=== PATIENT | female | born 1950 | race Caucasian/White ===

== ENCOUNTER 2024-01-29 11:08 | Inpatient (IN) | payer MEDICARE, OTHER, SELFPAY ==
[2024-01-29] VITALS (12 sets, daily range): BP systolic 80–160; BP diastolic 45–82; BMI 36.8
[2024-01-29] MEDS: LOW STRENGTH ASPIRIN 81 MG PO (08:20)
[2024-01-29] MEDS: NSS 291 ML IV (08:21)
[2024-01-29 09:54] LABS: ACT-LR - POC 368 Seconds (116-155)
[2024-01-29 10:25] LABS: ACT-LR - POC 284 Seconds (116-155)
[2024-01-29 10:49] LABS: INR 1.98; PT 22.3 Sec (11.4-14.6)
[2024-01-29 11:06] LABS: Troponin I < 0.012 ng/ml
[2024-01-29 11:07] LABS: APTT > 200 Sec (23.4-35.0)
[2024-01-29 11:09] LABS: ALT (SGPT) 12 U/L (0-35); AST (SGOT) 23 U/L (14-36); Albumin 2.7 g/dl (3.5-5.0); Alkaline Phosphatase 45 U/L (38-126); Blood Urea Nitrogen 14 mg/dl (7-17); Calcium 7.7 mg/dl (8.4-10.2); Carbon Dioxide 14 mmol/L (22-30); Chloride 89 mmol/L (98-107); Estimated Creatinine Clearance 93 ml/min; Glucose 102 mg/dl (70-99); Potassium 3.7 mmol/L (3.5-5.1); Sodium 119 mmol/L (135-145); Total Bilirubin 0.8 mg/dl (0.2-1.3); Total Protein 5.2 g/dl (6.3-8.2); eGFR > 60.00
[2024-01-29 11:10] LABS: ACT+ - POC 129 Seconds (82-134)
[2024-01-29 11:13] LABS: B.E. - POC -3.9 mmol/L; Glucose - POC 130 mg/dl (65-99); HCO3 - POC 23 mmol/L (21-29); Hematocrit - POC 36 % PCV (37-47); Hemodilution- POC Yes; Hemoglobin Calculated - POC 12.3; Ionized Calcium - POC 1.19 mmol/L (1.12-1.27); O2 Saturation %Calculated-POC 99.9 5 (92-96); PCO2 - POC 49 mmHg (35-45); PO2 - POC 343 mmHg (80-100); Potassium - POC 4.1 mmol/L (3.6-5.0); Sodium - POC 139 mmol/L (135-145); pH - POC 7.28 (7.35-7.45)
[2024-01-29 11:27] LABS: Urine Albumin Trace (Neg - Trace); Urine Bilirubin Negative (Negative); Urine Character Clear (Clear); Urine Color Yellow; Urine Glucose Negative (Negative); Urine Ketone Negative (Negative); Urine Leukocyte Trace (Negative); Urine Nitrite Negative (Negative); Urine Occult Blood Negative (Negative); Urine Specific Gravity 1.015 (<1.030); Urine Urobilinogen Negative (Neg - 1+)
[2024-01-29 11:38] LABS: Urine Red Blood Cell 0-2 /HPF (0-2); Urine Squamous Cell 0-2 /LPF (Few); Urine White Cell 0-2 /HPF (0-5)
--- NOTE | 2024-01-29 13:27 | CONSULT.CT ---
Consultation
-
Date/Time Consultation Requested: 01/28
Date/Time Consultation Performed: 01/28
Requesting Provider: Dr. Cook
Performing Provider: Myrna Khalil for Dr. Kamari Carroll
Reason for Consultation: iatrogenic left main dissection
Patient History
Physicians
Family Physician: Glen Rodriguez
Outpatient Vehicle Glass Technician: Dr. Cervantes
Inpatient Vehicle Glass Technician: Dr. Cook
History of Present Illness
83-year-old female presented for PCI of LAD. Called to Accounting Systems Manager for urgent CT surgery evaluation of left main dissection during PCI attempt. Patient with 5 out of 10 chest pain. Intra-aortic balloon pump placed via right femoral artery
by cardiology. Patient received Plavix 75 mg this morning. Past medical history gathered from prior records. Unable to obtain review of systems due to urgency of operation.
Past Medical History
Past Medical History: Other
Paroxysmal atrial fibrillation ([id number] score 3) status post cryoablation 10/22/2015
Hypertension
Carotid artery atherosclerosis
Asthma
Hyperlipidemia
Obesity (BMI 36.7
Hyperparathyroidism status post parathyroidectomy
Hypothyroidism
Orthopedic disorder multiple tendon repairs
Spinal stenosis
Past Surgical History
Past Surgical History: Other
Parathyroidectomy
Multiple tendon repairs
Spinal fusion hysterectomy
Family History
Mother: at Age
Father: at Age
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
Social History
Living: With Spouse
Employment: Retired
Allergies
Allergy/AdvReac Type Severity Reaction Status Date / Time
adhesive Allergy Rash Verified 01/29/24 08:06
chlorhexidine Allergy Hives Verified 01/29/24 08:06
levofloxacin Allergy affects Verified 01/29/24 08:06
tendons
pravastatin Allergy Unknown Verified 01/29/24 07:54
Home Medications
�Medication �Instructions �Recorded �Confirmed �Type
Bifidobacterium infantis 4 mg 4 mg PO DAILY stomach 01/29/24 01/29/24 History
capsule (Align)
Cbd 50 ml PO HS Sleep 01/29/24 History
alendronate 70 mg tablet (Fosamax) 70 mg PO QWEEK bones 01/29/24 01/29/24 History
amlodipine 2.5 mg tablet 2.5 mg PO BID Blood Pressure 01/29/24 01/29/24 History
aspirin 81 mg tablet,delayed 81 mg PO DAILY blood thinner 01/29/24 01/29/24 History
release
biotin 10,000 mcg chewable tablet 10,000 mcg PO DAILY Supplement 01/29/24 01/29/24 History
(Hair, Skin and Nails (biotin))
cholecalciferol (vitamin D3) 25 25 mcg PO DAILY Supplement 01/29/24 01/29/24 History
mcg (1,000 unit) capsule (Vitamin
D3)
clopidogrel 75 mg tablet (Plavix) 75 mg PO DAILY blood thinner 01/29/24 01/29/24 History
famotidine 40 mg tablet 40 mg PO DAILY stomach 01/29/24 01/29/24 History
levothyroxine 50 mcg capsule 50 mcg PO DAILY thyroid 01/29/24 01/29/24 History
lisinopril 10 mg tablet 10 mg PO DAILY Blood Pressure 01/29/24 01/29/24 History
magnesium 200 mg tablet 400 mg PO DAILY Supplement 01/29/24 01/29/24 History
metoprolol tartrate 25 mg tablet 25 mg PO BID blood pressure 01/29/24 01/29/24 History
psyllium husk 0.4 gram capsule 0.4 g PO HS stool 01/29/24 01/29/24 History
(Metamucil)
rosuvastatin 10 mg tablet 10 mg PO DAILY cholesterol 01/29/24 01/29/24 History
Review of Systems
-
Unable to obtain full review of systems at this time due to: Other (acute chest pain from left main dissection)
History Source: Transfer Record
Physical Exam
Vital Signs
Temp 98.0 F 01/29/24 07:51
Temp route: Temporal 01/29/24 07:51
Pulse 73 01/29/24 07:51
Resp Rate 18 01/29/24 07:51
Blood pressure 160/68 01/29/24 07:51
Position: Lying 01/29/24 07:51
SaO2 96 01/29/24 07:51
Oxygen Mode of Delivery Room air 01/29/24 07:51
Can the patient verbally communicate their pain? Yes 01/29/24 07:51
Actual Weight 97.1 kg 01/29/24 07:52
Body Mass Index (BMI) 36.8 01/29/24 07:52
Labs
01/29/24 10:10
PT 22.3 Sec (11.4-14.6) H 01/29/24 10:10
APTT > 200 Sec (23.4-35.0) H* 01/29/24 10:10
Troponin I < 0.012 ng/ml 01/29/24 10:10
Urinalysis
Urine Color Yellow 01/29/24 11:13
Urine Clarity Clear (Clear) 01/29/24 11:13
Urine pH 6.0 (5.0-9.0) 01/29/24 11:13
Ur Specific Concrete 1.015 (<1.030) 01/29/24 11:13
Urine Ketones Negative (Negative) 01/29/24 11:13
Ur Occult Blood Reflex Negative (Negative) 01/29/24 11:13
Urine Bilirubin Negative (Negative) 01/29/24 11:13
Leukocyte Esterase Rfl Trace (Negative) A 01/29/24 11:13
Urine RBC 0-2 /HPF (0-2) 01/29/24 11:13
Urine WBC (Reflex) 0-2 /HPF (0-5) 01/29/24 11:13
Ur Squamous Epith Cells 0-2 /LPF (Few) 01/29/24 11:13
Urine Glucose Negative (Negative) 01/29/24 11:13
Urine Albumin (Reflex) Trace (Neg - Trace) 01/29/24 11:13
Exam
General: Well Developed, Well Nourished and Pain (+5/10 chest pain)
HEENT: Normocephalic and Anicteric
Neck: Trachea Midline
Cardiac: S1/S2
GI: Soft
Rectal: Deferred by Provider
Neuro: AO x 3
Assessment / Plan
-
73-year-old female with iatrogenic left main dissection during LAD PCI attempt
-Dr. Kamari Carroll called stat to Accounting Systems Manager and notified of Plavix dose 75 mg this morning
- Stat type and screen sent
- Femoral balloon pump placed by cardiology
- Patient taken emergently to the OR for CABG
Data Reviewed
-
Accounting Systems Manager: Discussed with Physician
Labs: Labs Reviewed by me and Discussed with Physician
--- NOTE | 2024-01-29 13:30 | ITS.CL.ANGIO ---
Acting Manager - Angioplasty
Angioplasty
Procedure Report:
LEFT HEART CATHETERIZATION
Date of Procedure: [01/29/2024]
Procedures performed:
1: Coronary angiography
2: PTCA to the LAD
3: Intra-aortic balloon pump placement.
Primary Care Physician: Unknown
Primary Green Building Architect: Dr. Cervantes
INDICATION: Worsening angina
Informed consent was obtained in the holding area. Patient was informed about the high risk nature of the procedure and the reason to have it done a [facility]. Patient was explained the risks and the benefits of the procedure. After
hearing the risks and benefits, the patient agreed to proceed.
ACCESS: The patient was prepped and draped in usual sterile fashion. A 6 Trinidadian sheath was placed in the right right radial artery using the Seldinger over the wire technique. 10,000 units of heparin was administered for anticoagulation.
HEMODYNAMIC FINDINGS (mmHg):
Ao(s/d,m): 130/67 with a mean of 100
Percutaneous Coronary Intervention (PCI): This was a planned percutaneous core intervention. EBU 3.5 guiding catheter was used to cannulate left main coronary artery. Success of 90% lesions in the LAD were then visualized. Heavy calcification was
present.
Were able to cross the lesion with a Runthrough wire. We had a great deal of difficulty of advancing equipment to predilate the lesion. First, we attempted 2.0 x 12 compliant balloon which did not cross. We then inserted a 1.5 x 10 mm Euphora
noncompliant balloon. The balloon did not cross the lesion either. We then took a 6 Trinidadian guide liner catheter to attempt to deliver balloon further. Were able to deliver balloon to the mid LAD to dilate the distal lesion. Unfortunately, the
balloon ruptured at 8 gerson inflation. We then to attempt to deliver a new 1.5 x 10 mm NC Euphora balloon, successfully delivered to the mid distal LAD, inflated, however, a rupture occurred at 8 gerson again. We attempted to deliver a 2.0 x 12 mm
compliant balloon, however we were not able to successfully cross.
We then exchanged a 6 Trinidadian guide liner catheter for a 5 Trinidadian guide liner catheter in order to try to deliver the equipment further down the vessel with more support. Unfortunately, we could not advance any equipment through the 5 Trinidadian guide
liner catheter.
The 5 Trinidadian guide catheter was then taken out and replaced by a 6 Trinidadian guide liner catheter. Several attempts were made to deliver equipment further down the LAD.
The patient remained hemodynamically stable. However, angiography demonstrated a dissection in the LAD. Unfortunately the dissection not allergy propagated to the left main coronary artery. Some staining was noted in the left main coronary artery
as well as aortic root.
At this point, the patient developed 5 out of 10 chest discomfort. Decision was made not to pursue intervention any further, and involve the help of CT surgery team.
Using a 4 Trinidadian micropuncture kit, right common femoral access was obtained. 8 Trinidadian balloon pump sheath was placed. Inserted balloon pump was placed for hemodynamic support in preparation of the patient going to the operating room.
After the balloon pump was sutured in place, the patient was successfully taken to the operating room.
FINAL RESULT: Unsuccessful PTCA/PCI of the LAD.
Fluoroscopy Time (min): 56 minutes
Radiation Dose (mGy): [1402 mGy]
DAP (Gy.cm2): 71.387
Closure device: None. A TR band was applied for hemostasis at the right wrist.
Complications: Coronary dissection
ASSESSMENT:
1: Unsuccessful PTCA/PCI of the LAD due to severe calcifications. Complicated by left anterior descending artery dissection extending into the left main coronary artery.
2: Emergent insertion of enteric balloon pump for hemodynamic support
3: Emergent transfer of the patient to the operating room.
--- NOTE | 2024-01-29 14:11 | W.PN.UPDATE ---
Update Note
Progress Note Update
Patient went emergently to the operating room after left anterior descending artery dissection propagated into the left main at the aortic root.
The primary adjuster electrical contacts for the patient is son, Lex, he is the POA. Phone number is [phone].
Patient's family was updated with the patient's condition and the need for a long/8 to 10-hour surgery.
[2024-01-29 14:47] LABS: ACT-LR - POC > 397 Seconds (116-155)
[2024-01-29 14:47] LABS: ACT-LR - POC > 397 Seconds (116-155)
[2024-01-29 15:06] LABS: B.E. - POC -1.5 mmol/L; Glucose - POC 161 mg/dl (65-99); HCO3 - POC 24 mmol/L (21-29); Hematocrit - POC 18 % PCV (37-47); Hemodilution- POC Yes; Hemoglobin Calculated - POC 6.2; Ionized Calcium - POC 0.89 mmol/L (1.12-1.27); PCO2 - POC 40 mmHg (35-45); PO2 - POC 410 mmHg (80-100); Potassium - POC 5.1 mmol/L (3.6-5.0); Sodium - POC 137 mmol/L (135-145); pH - POC 7.38 (7.35-7.45)
--- NOTE | 2024-01-29 15:55 | OR.RPT ---
Operative Report
Operative Report
PROCEDURE DATE: 01/29/2024
Preoperative diagnosis: Severe coronary artery disease undergoing surgical revascularization, severe bleeding around right femoral intra-aortic balloon pump site.
Postoperative diagnosis: Same
Procedure:
1. Emergent left common femoral artery cannulation (duplex assisted, using micropuncture kit) and placement of intra-aortic balloon pump sheath.
2. Emergent right groin cutdown with common femoral artery proximal and distal control, and subsequent removal of intra-aortic balloon pump sheath and primary repair of common femoral artery.
Surgeon: Dorian
Bread Baker: Kamari Carroll MD, Stephani Lyn NP required for all aspects of procedure.
Complications: None
Anesthesia: General
Indications for procedure:
I was emergently contacted by the cardiac surgeon as the patient was brought to the cardiac operating room for emergent CABG. Right femoral intra-aortic balloon pump site with significant bleeding around the sheath. Manual pressure was being
applied continuously. I emergently came to the operating room to assist.
Description of procedure:
Patient was prepped and draped by the cardiac surgery team. The right groin manual pressure was continuously applied using sterile technique. At this point under direct duplex ultrasound guidance I cannulated the left common femoral artery using a
micropuncture kit. I then exchanged over a 0.035 inch wire for the introducer sheath for the intra-aortic balloon pump. (The balloon pump was to be replaced in the left side so that the right side could be removed and the artery could be
repaired). The dilator/introducer and wire were removed.
At this point I then turned my attention to the right groin. Again maintaining manual pressure in the right groin to control the bleeding, longitudinal incision was made in the right groin just proximal and distal to the sheath entry site. This
was carried down through the subcutaneous tissue with the electrocautery device. A self-retaining retractor was then placed. There was moderate bleeding around the sheath entry site which made this difficult. I was able to then identify the
inguinal ligament and dissect just below the inguinal ligament. The patient's habitus because the inguinal ligament/abdominal wall tissue to hang slightly over the inguinal ligament. The sheath therefore appeared to dive down underneath the
inguinal ligament into the artery. At this point, I was able to get down to the level of the artery and palpate the pulsation with my hand. I therefore then maintained manual pressure with my finger on the artery at the site of sheath entry and
then placed a Robby retractor underneath the inguinal ligament. I ligated/clipped and divided a couple branches medially and laterally on the artery to allow circumferential dissection underneath the inguinal ligament of the distal external iliac
artery. As such I was able to pass a vessel loop which I then double looped and tightened. This slowed the bleeding somewhat. I then dissected just distal to the sheath entry site on the common femoral artery. This was high in the groin and
therefore I continued to dissect along the common femoral artery. This was proximal to the bifurcation. I was able to then circumferentially dissected here and gain distal control. I placed a angled Deanna clamp on the distal common femoral
artery. Now I had proximal and distal control.
At this point, we gave the patient 5000 units of intravenous heparin since we had clamped the artery proximally distally. The cardiac surgeon and cardiac team placed the new intra-aortic balloon pump through the sheath I placed in the left groin
(see operative note for details). Once they had removed the prior balloon pump in place the new pump via the left femoral access, I could then turned my attention to remove the sheath in the right common femoral artery. I therefore then slightly
loosened my proximal vessel loop and removed the sheath. I then tightened my double looped Vesseloops initially and then exchanged for a Derra clamp proximally. I flushed the artery forward and backward. I inspected the sheath entry site and
there was a small ovoid opening. I was able to inspect the edges proximally distally and the looked reasonable. Therefore I then used two 6-0 Prolene [id number] type sutures to primarily repair the artery. I then released flow in the [place]
arteries by releasing my proximal distal clamps. There was good pulsatile flow proximal and distal to the arterial repair. Doppler confirmed good Doppler signal as well. At this point is very satisfied. Hemostasis was noted along the suture
line. I then irrigated. Any small bleeding subcutaneous or other vein or artery branches were clipped. I then irrigated. I confirmed full hemostasis. I then closed in layers using 2-0 Vicryl interrupted suture followed by 3-0 Vicryl interrupted
deep dermal suture followed by skin clips. Dressings were applied. The patient tolerated this portion of the procedure well. Dr. Carroll and his team will dictate the entirety of the cardiac surgery remainder of the case. Please see operative
note for details.
[2024-01-29 15:56] LABS: B.E. - POC -1.1 mmol/L; Glucose - POC 174 mg/dl (65-99); HCO3 - POC 25 mmol/L (21-29); Hematocrit - POC 23 % PCV (37-47); Hemodilution- POC Yes; Hemoglobin Calculated - POC 7.7; Ionized Calcium - POC 0.86 mmol/L (1.12-1.27); O2 Saturation %Calculated-POC 99.9 5 (92-96); PCO2 - POC 48 mmHg (35-45); PO2 - POC 348 mmHg (80-100); Potassium - POC 5.3 mmol/L (3.6-5.0); Sodium - POC 141 mmol/L (135-145); pH - POC 7.33 (7.35-7.45)
[2024-01-29 16:21] LABS: B.E. - POC -0.8 mmol/L; Glucose - POC 177 mg/dl (65-99); HCO3 - POC 25 mmol/L (21-29); Hematocrit - POC 25 % PCV (37-47); Hemodilution- POC Yes; Hemoglobin Calculated - POC 8.4; O2 Saturation %Calculated-POC 99.6 5 (92-96); PCO2 - POC 49 mmHg (35-45); PO2 - POC 203 mmHg (80-100); Potassium - POC 4.4 mmol/L (3.6-5.0); Sodium - POC 141 mmol/L (135-145); pH - POC 7.32 (7.35-7.45)
[2024-01-29 16:55] LABS: Glucose - POC 167 mg/dl (65-99); HCO3 - POC 22 mmol/L (21-29); Hematocrit - POC 24 % PCV (37-47); Hemodilution- POC Yes; Hemoglobin Calculated - POC 8.2; Ionized Calcium - POC 0.87 mmol/L (1.12-1.27); O2 Saturation %Calculated-POC 98.5 5 (92-96); PCO2 - POC 49 mmHg (35-45); PO2 - POC 133 mmHg (80-100); Potassium - POC 3.3 mmol/L (3.6-5.0); Sodium - POC 142 mmol/L (135-145); pH - POC 7.26 (7.35-7.45)
[2024-01-29 17:08] LABS: B.E. - POC 0.6 mmol/L; Glucose - POC 152 mg/dl (65-99); HCO3 - POC 27 mmol/L (21-29); Hematocrit - POC 23 % PCV (37-47); Hemodilution- POC Yes; Hemoglobin Calculated - POC 7.8; Ionized Calcium - POC 0.85 mmol/L (1.12-1.27); O2 Saturation %Calculated-POC 99.8 5 (92-96); PCO2 - POC 48 mmHg (35-45); PO2 - POC 244 mmHg (80-100); Potassium - POC 3.1 mmol/L (3.6-5.0); Sodium - POC 144 mmol/L (135-145); pH - POC 7.35 (7.35-7.45)
[2024-01-29 17:50] LABS: Glucose - POC 126 mg/dl (65-99); HCO3 - POC 32 mmol/L (21-29); Hematocrit - POC 19 % PCV (37-47); Hemodilution- POC Yes; Hemoglobin Calculated - POC 6.4; Ionized Calcium - POC 0.69 mmol/L (1.12-1.27); PCO2 - POC 23 mmHg (35-45); PO2 - POC 323 mmHg (80-100); Potassium - POC 3.8 mmol/L (3.6-5.0); Sodium - POC 149 mmol/L (135-145); pH - POC 7.75 (7.35-7.45)
[2024-01-29 17:55] LABS: B.E. - POC 0.7 mmol/L; Glucose - POC 154 mg/dl (65-99); HCO3 - POC 27 mmol/L (21-29); Hematocrit - POC 21 % PCV (37-47); Hemodilution- POC Yes; Hemoglobin Calculated - POC 7.1; Ionized Calcium - POC 0.85 mmol/L (1.12-1.27); O2 Saturation %Calculated-POC 99.9 5 (92-96); PCO2 - POC 54 mmHg (35-45); PO2 - POC 277 mmHg (80-100); Potassium - POC 2.9 mmol/L (3.6-5.0); Sodium - POC 146 mmol/L (135-145); pH - POC 7.31 (7.35-7.45)
[2024-01-29 18:26] LABS: B.E. - POC -1.5 mmol/L; Glucose - POC 178 mg/dl (65-99); HCO3 - POC 24 mmol/L (21-29); Hematocrit - POC 26 % PCV (37-47); Hemodilution- POC Yes; Ionized Calcium - POC 0.79 mmol/L (1.12-1.27); O2 Saturation %Calculated-POC 99.9 5 (92-96); PCO2 - POC 40 mmHg (35-45); PO2 - POC 263 mmHg (80-100); Potassium - POC 3.7 mmol/L (3.6-5.0); Sodium - POC 146 mmol/L (135-145); pH - POC 7.38 (7.35-7.45)
[2024-01-29 18:55] LABS: Glucose - POC 166 mg/dl (65-99); HCO3 - POC 25 mmol/L (21-29); Hematocrit - POC 25 % PCV (37-47); Hemodilution- POC Yes; Hemoglobin Calculated - POC 8.7; Ionized Calcium - POC 0.75 mmol/L (1.12-1.27); O2 Saturation %Calculated-POC 99.5 5 (92-96); PCO2 - POC 34 mmHg (35-45); PO2 - POC 156 mmHg (80-100); Potassium - POC 3.2 mmol/L (3.6-5.0); Sodium - POC 146 mmol/L (135-145); pH - POC 7.47 (7.35-7.45)
[2024-01-29 19:37] LABS: B.E. - POC -0.6 mmol/L; Glucose - POC 198 mg/dl (65-99); HCO3 - POC 25 mmol/L (21-29); Hematocrit - POC 24 % PCV (37-47); Hemodilution- POC Yes; Hemoglobin Calculated - POC 8.3; Ionized Calcium - POC 0.77 mmol/L (1.12-1.27); O2 Saturation %Calculated-POC 99.9 5 (92-96); PCO2 - POC 43 mmHg (35-45); PO2 - POC 261 mmHg (80-100); Potassium - POC 3.3 mmol/L (3.6-5.0); Sodium - POC 148 mmol/L (135-145); pH - POC 7.37 (7.35-7.45)
[2024-01-29 19:50] LABS: ACT+ - POC 567 Seconds (82-134)
[2024-01-29 20:08] LABS: B.E. - POC -1.4 mmol/L; Glucose - POC 188 mg/dl (65-99); HCO3 - POC 23 mmol/L (21-29); Hematocrit - POC 29 % PCV (37-47); Hemodilution- POC Yes; Hemoglobin Calculated - POC 9.8; Ionized Calcium - POC 0.78 mmol/L (1.12-1.27); O2 Saturation %Calculated-POC 99.9 5 (92-96); PCO2 - POC 39 mmHg (35-45); PO2 - POC 282 mmHg (80-100); Potassium - POC 3.1 mmol/L (3.6-5.0); Sodium - POC 148 mmol/L (135-145); pH - POC 7.39 (7.35-7.45)
[2024-01-29 20:29] LABS: ACT+ - POC 112 Seconds (82-134)
[2024-01-29 20:30] LABS: B.E. - POC -5.2 mmol/L; Glucose - POC 206 mg/dl (65-99); HCO3 - POC 21 mmol/L (21-29); Hematocrit - POC 24 % PCV (37-47); Hemodilution- POC Yes; Hemoglobin Calculated - POC 8.3; Ionized Calcium - POC 0.76 mmol/L (1.12-1.27); O2 Saturation %Calculated-POC 99.8 5 (92-96); PCO2 - POC 40 mmHg (35-45); PO2 - POC 229 mmHg (80-100); Potassium - POC 3.4 mmol/L (3.6-5.0); Sodium - POC 148 mmol/L (135-145); pH - POC 7.32 (7.35-7.45)
[2024-01-29 21:06] LABS: ACT+ - POC 891 Seconds (82-134)
[2024-01-29 21:07] LABS: B.E. - POC -6.9 mmol/L; Glucose - POC 234 mg/dl (65-99); HCO3 - POC 20 mmol/L (21-29); Hematocrit - POC 21 % PCV (37-47); Hemodilution- POC Yes; Hemoglobin Calculated - POC 7.3; Ionized Calcium - POC 1.01 mmol/L (1.12-1.27); PCO2 - POC 44 mmHg (35-45); PO2 - POC 464 mmHg (80-100); Potassium - POC 4.2 mmol/L (3.6-5.0); Sodium - POC 145 mmol/L (135-145); pH - POC 7.26 (7.35-7.45)
[2024-01-29 21:29] LABS: B.E. - POC 8.4 mmol/L; Glucose - POC 209 mg/dl (65-99); HCO3 - POC 32 mmol/L (21-29); Hematocrit - POC 20 % PCV (37-47); Hemodilution- POC Yes; Ionized Calcium - POC 0.93 mmol/L (1.12-1.27); O2 Saturation %Calculated-POC 99.9 5 (92-96); PCO2 - POC 39 mmHg (35-45); PO2 - POC 304 mmHg (80-100); Potassium - POC 3.7 mmol/L (3.6-5.0); Sodium - POC 154 mmol/L (135-145); pH - POC 7.52 (7.35-7.45)
[2024-01-29 21:50] LABS: ACT+ - POC 134 Seconds (82-134)
[2024-01-29 21:54] LABS: B.E. - POC 1.4 mmol/L; Glucose - POC 235 mg/dl (65-99); HCO3 - POC 26 mmol/L (21-29); Hematocrit - POC 24 % PCV (37-47); Hemodilution- POC Yes; Hemoglobin Calculated - POC 8.3; Ionized Calcium - POC 0.93 mmol/L (1.12-1.27); O2 Saturation %Calculated-POC 99.1 5 (92-96); PCO2 - POC 38 mmHg (35-45); PO2 - POC 134 mmHg (80-100); Potassium - POC 3.7 mmol/L (3.6-5.0); Sodium - POC 153 mmol/L (135-145); pH - POC 7.44 (7.35-7.45)
[2024-01-29] MEDS: ADRENALIN 250 IV (23:15)
[2024-01-29] MEDS: PITRESSIN 100 IV (23:15)
[2024-01-29 23:28] LABS: Glucose - Point of Care 246 mg/dl (70-99)
[2024-01-29] MEDS: CALCIUM CHLORIDE 10% SYRINGE 500 MG IV (23:30)
[2024-01-29 23:33] LABS: B.E. -1.1 mmol/L; HCO3 24.3 mmol/L (21-28); Ionized Calcium 1.24 mMOL/L (1.15-1.33); O2 Saturation % 99.4 % (94-98); PCO2 43 mmHg (32-35); PO2 173 mmHg (83-108); Potassium 3.3 mMOL/L (3.5-5.1); Sodium 149 mMOL/L (136-145); pH 7.36 (7.35-7.45)
[2024-01-29 23:37] LABS: Hematocrit 21.1 % (37.0-47.0); Hemoglobin 7.6 g/dL (12.0-16.0); Mean Corpuscular Hgb 31.8 pg (27.0-31.0); Mean Corpuscular Volume 88.3 fL (81.0-99.0); Mean Platelet Volume 9.3 fL (7.4-10.4); Platelet Count 141 10^3/uL (130-400); Red Blood Cell Count 2.39 10^6/uL (4.20-5.40); Red Cell Dist. Width 14.5 % (11.5-14.5); White Blood Cell Count 16.1 10^3/uL (4.8-10.8)
[2024-01-29 23:39] LABS: O2 Therapy VENT
--- NOTE | 2024-01-29 23:42 | W.IMMPOSTOP ---
Addendum entered and electronically signed by Kamari Carroll MD 01/30/24 00:56:
[id number]
Original Note:
Surgical Immed Post Op Note
-
CARDIAC SURGERY OPERATIVE NOTE:
Preoperative Dx:
CAD w/ LM dissection
Bleeding from L GLASS SCIENCE ENGINEER sheath/IABP
Postoperative Dx:
ATAAD involving the LM/RM/aortic root and extending to proximal aortic arch
Coagulopathy
Open-chest
Procedures:
SUMMARY: Emergency repair of ATAAD w/ #23 Bio-bentall, ligation of LM and RM ostia, CABG x 3 (PRINCESS to LAD, GSV to OM, GSV to PDA); DHCA w/ ACP, Open chest for ongoing coagulopathy
1) Access of L GLASS SCIENCE ENGINEER w/ tactile and U/S guidance, micropucture technique, IABP sheath placement
2) Cutdown & open repair of R GLASS SCIENCE ENGINEER
3) Placement of IABP via L GLASS SCIENCE ENGINEER access
4) Median sternotomy
5) Takedown of PRINCESS (narrow pedicle) - brisk blood flow
6) Endoscopic LLE GSV harvest
7) Cannulation of TRUE lumen of distal ascending aorta/arch w/ Seldinger technique & EUSEBIA guidance, RA cannulation, Retrograde cannulation, Placement of LV vent via R superior pulmonary vein
8) Cardiopulmonary bypass - cross-clamp application, retrograde cardioplegic arrest
9) CABG x 2 (GSV to OM, PRINCESS to LAD)
10) Repair of ATAAD w/ Bio-bentall w/ #23mm KONECT RESILIA valved conduit w/ oversewing of dissected LM and dissected/profoundly calcified RM coronary arteries
11) CABG x 1 (GSV to distal RCA)
12) Open distal ascending aortic/proximal arch reconstruction w/ creation of neomedia & anastomosis under DHCA and direct ACP via L CCA w/ 28mm Hemashield graft w/ 8mm sidearm
13) Re-institution of systemic flow via sidearm graft cannulation
14) Vviug-po-palvf anastomosis
15) Proximal coronary anastomoses x 2
16) Placement of temporary epicardial V-pacing wires
17) Separation from CPB support
18) Serial packing & attempted correction of coagulopathy - pt w/ recurrent surgical bleeding at aortic root - numerous repair sutures placed
19) Re-heparinization, re-establishment of CPB support
20) Further aortic root repair suture placement w/ control obtained
21) Separation from CPB support
22) Serial packing & transfusions to address ongoing coagulopathy
23) Application of open chest dressing
Surgeon:
Kamari Carroll M.D.
Assistants:
Emiliano OhASuzy-CSuzy; endoscopic GSV harvest/prep of LLE GSV, pharmacy sales assistant for initiation of CPB support & CABG x 2
Carlitos RiojasCSuzy; assistant professor of biochemistry throughout
Anesthesia:
Tino Salas M.D.
Perfusion:
Tamara MarsC.P.; CPB: 361min, XC: 147min, Circulatory arrest: 24min, ACP: 20min
Findings:
Pt. w/ significant bleeding from around R GLASS SCIENCE ENGINEER IABP sheath prompting intraoperative vascular surgery consultation (please see their operative note for greater details)
Initial EUSEBIA assess w/ [id number] AI w/ flap of ATAAD visible in ascending aorta & proximal arch; descending aorta OK
PRINCESS was good quality conduit w/ ELD 2.5mm w/ very brisk blood flow
GSV was good quality conduit w/ ELD 3.5mm
LAD was visible on the epicardial surface, very dense proximal calcifications & scattered calcifications throughout, ELD at midpoint anastomosis was 2.5mm
OM was visible on the epicardial surface, very dense proximal calcifications & scattered calcifications throughout, ELD at midpoint anastomosis was 3.25mm
Distal RCA was visible on the epicardial surface, very dense proximal calcifications, distal OK, ELD at distal anastomosis just post crux 3.0mm
Extensive dissection involving entire aortic root w/ ~ 0.25 x 0.25cm tear noted ~ 3mm inside ostium of LM coronary - LM was not amendable to reimplantation/cabrol
Trileaflet AV w/ leaflet calcifications on ALL cusps (not amenable to valve-sparing techniques)
RM coronary w/ circumferential dissection and profound circumferential (~1 cm) ostial calcifications extending into wall of aorta. There appeared to be ostial RM stenosis. RM was not amenable to reimplantation/cabrol
#23 Bio-bentall secured w/ 15 interrupted, pledgetted valve sutures positioned on LVOT side of aortic annulus & secured w/ Cor-Knot device
Distal ascending aorta/arch w/ limited dissection flap along anterior/lateral margin extending to base of innominate
There was no secondary tear in the aortic arch
Ward-media reconstructed w/ felt/bioglue - open distal anastomosis performed under DHCA at 19C w/ ACP via direct L CCA ostial cannulation
Pt. initially w/ typical coagulopathy following DHCA that was improving w/ serial packing & transfusion. However, w/ ongoing pressurization, pt w/ onset of surgical bleeding at the aortic root (~7-8 o'clock). Numerous repair sutures were placed
and would result in brief temporization of bleeding. However, repeat surgical bleeding continued to recur. CPB re-established & additional surgical control obtained
Improved hemostasis but w/ continued coagulopathy prompted application of open chest dressing
Post-EUSEBIA w/ normal biventricular function. AV w/ mean gradient 7mmHg
Family notified of pathology, all operative events, and patient condition immediately following procedure
Implants:
#23 KONECT RESILIA valved conduit
#28 Hemashield graft
V-pacing wires x 2
CT x 4
Open chest dressing (2 - vaginal packs, 2 - rolls of Kerlex, syringe separation of sternal tables)
Transfusions:
10U PRBC, 4pk PLT, 8U FFP, 9mg Factor VIIa
Condition:
Continued coagulopathy - giving additional PRBC, cryo
Critical/guarded condition to CVICU
91 sinus. 96/44. 32/16. CVP 12. CO/CI: 4.54, CI: 2.26
GTTS: epi 4, vaso 0.04, levo 4, precedex 0.5
[2024-01-29] MEDS: PRECEDEX 100 IV (23:46)
[2024-01-29 23:48] LABS: APTT 49.7 Sec (23.4-35.0); Fibrinogen 165 MG/DL (199-459)
[2024-01-29] MEDS: SUBLIMAZE 100 IV (23:54)
[2024-01-29] MEDS: SUBLIMAZE 95 MCG IV (23:55)
[2024-01-29] MEDS: ADRENALIN IV (23:59)
[2024-01-30] VITALS (84 sets, daily range): BP systolic 80–135; BP diastolic 33–113; BMI 41.3
[2024-01-30] MEDS: NSS 500 IV
[2024-01-30] MEDS: PITRESSIN IV
--- NOTE | 2024-01-30 | PTCARENOTE ---
assumed care of patient @ 2315- received pt from CVOR intubated, sedated on mechanical ventilation with open chest. Pupils equal and reactive to light. NSR on monitor. BP low on arrival systolic 60s, levo titrated up as well as 1 u prbc given . BP
recovered well. PAPs 30s.10s, CVP around 10. IABP present in L groin, site looks good no bleeding. Balloon set to 1:2 max augmentation. index >2 on arrival. Doppler pedals, + radials. Per Dr. Carroll no need for chest xray. Lungs sound clear,
diminished. 8.0 ET tube 22 @lip, SIMV 16 bpm, 500 tv, 5 pSV 5 peep. 4 chest tubes present as well as suction tube in open chest to wall drainage container. Pleurals drained heavily on arrival 100 in 15 minutes with slowdown of drainage. no air leak
or crepitus noted. Belly soft, hypoactive. Martino present draining clear tea colored urine, good output. Sternum open with ioban in place CDI, L femoral IABP site CDI no hematoma, R fem cutdown site with aquacel CDI no hematoma, R wrist cath site CDI
no hematoma. R IJ cordis with swan @ 45. L radial A line, L wrist # 20 PIV. central lines zeroed, flushed, maintained. On arrival EKG completed, labs drawn and sent. martino care completed. Drips on arrival -
Levo-4
Insulin-2
Precedex-.5
Epi-4
Vaso-0.04
[2024-01-30] MEDS: KCL 50 IV ×2 (00:17→07:41)
[2024-01-30 00:20] LABS: Lactic Acid 10.8 mmol/L (0.7-2.0)
[2024-01-30 00:30] LABS: Alkaline Phosphatase 31 U/L (38-126); Blood Urea Nitrogen 13 mg/dl (7-17); Calcium 10.2 mg/dl (8.4-10.2); Carbon Dioxide 24 mmol/L (22-30); Chloride 110 mmol/L (98-107); Direct Bilirubin 0.7 mg/dl (0.0-0.4); Estimated Creatinine Clearance 93 ml/min; Glucose 204 mg/dl (70-99); Magnesium 2.3 mg/dl (1.6-2.3); Phosphorus 4.7 mg/dl (2.5-4.5); Potassium 3.3 mmol/L (3.5-5.1); Sodium 146 mmol/L (135-145); Total Bilirubin 1.7 mg/dl (0.2-1.3); Total Protein 4.7 g/dl (6.3-8.2); eGFR > 60.00
[2024-01-30 00:43] LABS: Glucose - Point of Care 228 mg/dl (70-99)
--- NOTE | 2024-01-30 01:00 | PTCARENOTE ---
40 of K given for low K, 1 cryo and 1 additional PRBC ordered and transfused w/o reaction.
[2024-01-30 01:18] LABS: ALT (SGPT) 31 U/L (0-35); AST (SGOT) 65 U/L (14-36)
[2024-01-30 02:07] LABS: Glucose - Point of Care 245 mg/dl (70-99)
[2024-01-30 02:24] LABS: B.E. -4.9 mmol/L; HCO3 20.6 mmol/L (21-28); O2 Saturation % 98.8 % (94-98); PCO2 39 mmHg (32-35); PO2 145 mmHg (83-108); pH 7.33 (7.35-7.45)
[2024-01-30 02:25] LABS: Hematocrit 29.6 % (37.0-47.0); Mean Corp Hgb Conc. 35.8 g/dL (33.0-37.0); Mean Corpuscular Hgb 30.5 pg (27.0-31.0); Mean Corpuscular Volume 85.1 fL (81.0-99.0); Mean Platelet Volume 9.6 fL (7.4-10.4); Platelet Count 125 10^3/uL (130-400); Red Blood Cell Count 3.48 10^6/uL (4.20-5.40); Red Cell Dist. Width 14.6 % (11.5-14.5); White Blood Cell Count 10.7 10^3/uL (4.8-10.8)
[2024-01-30 02:26] LABS: Hemoglobin 10.6 g/dL (12.0-16.0); O2 Therapy VENT
[2024-01-30 02:37] LABS: INR 0.94; PT 12.4 Sec (11.4-14.6)
[2024-01-30 02:38] LABS: APTT 32.4 Sec (23.4-35.0); Fibrinogen 269 MG/DL (199-459)
--- NOTE | 2024-01-30 02:46 | PTCARENOTE ---
index low 1.61 - Epi increased to 6 per CTPA leo. additional labs drawn and sent. BP stable systolic 100s map ~70 on 0.04 vaso, 2 levo.
[2024-01-30 03:11] LABS: Glucose - Point of Care 189 mg/dl (70-99)
[2024-01-30 03:17] LABS: Lactic Acid 11.3 mmol/L (0.7-2.0)
[2024-01-30] MEDS: BACTROBAN 2% OINTMENT 1 APPLIC NASAL ×3 (03:30→20:39)
[2024-01-30] MEDS: SENOKOT-S PO ×3 (03:32→19:47)
[2024-01-30] MEDS: PACERONE PO ×4 (03:32→22:37)
[2024-01-30] MEDS: TYLENOL PO ×4 (03:32→22:37)
[2024-01-30] MEDS: PRECEDEX 100 IV ×6 (03:37→20:38)
--- NOTE | 2024-01-30 04:00 | PTCARENOTE ---
Index low 1.42 - 500 albumin given per CTPA as well as dobutamine started at 3 , calcium gluc replaced, sodium bicarb orders
[2024-01-30 04:07] LABS: Glucose - Point of Care 187 mg/dl (70-99)
[2024-01-30] MEDS: ALBUMIN 5% 250 IV ×2 (04:17→04:31)
[2024-01-30] MEDS: PITRESSIN 100 IV ×2 (04:23→14:13)
[2024-01-30] MEDS: DOBUTREX 500 MG 250 IV (04:28)
[2024-01-30] MEDS: NOVOLIN R INSULIN INFUSION 100 IV ×2 (04:30→11:02)
[2024-01-30 04:36] LABS: Hematocrit 28.6 % (37.0-47.0); Hemoglobin 10.2 g/dL (12.0-16.0); Mean Corp Hgb Conc. 35.7 g/dL (33.0-37.0); Mean Corpuscular Hgb 30.2 pg (27.0-31.0); Mean Corpuscular Volume 84.6 fL (81.0-99.0); Mean Platelet Volume 9.8 fL (7.4-10.4); Platelet Count 111 10^3/uL (130-400); Red Blood Cell Count 3.38 10^6/uL (4.20-5.40); Red Cell Dist. Width 14.7 % (11.5-14.5)
[2024-01-30 04:37] LABS: Mixed Venous O2 Saturation 98.9 %
[2024-01-30] MEDS: CALCIUM GLUCONATE 100 IV (04:38)
[2024-01-30] MEDS: SODIUM BICARBONATE 100 MEQ IV (04:40)
--- NOTE | 2024-01-30 04:54 | PTCARENOTE ---
BP very labile 60s-140s, IABP augmentation alarm, pt recovered with titration of levo
[2024-01-30 05:09] LABS: Glucose - Point of Care 219 mg/dl (70-99)
[2024-01-30 05:13] LABS: Mixed Venous O2 Saturation 98.3 %
[2024-01-30 05:13] LABS: Blood Urea Nitrogen 14 mg/dl (7-17); Calcium 8.5 mg/dl (8.4-10.2); Carbon Dioxide 21 mmol/L (22-30); Chloride 112 mmol/L (98-107); Estimated Creatinine Clearance 70 ml/min; Glucose 198 mg/dl (70-99); Magnesium 2.1 mg/dl (1.6-2.3); Potassium 3.8 mmol/L (3.5-5.1); Sodium 149 mmol/L (135-145); eGFR > 60.00
[2024-01-30] MEDS: VERSED 1 MG IV ×7 (05:23→22:43)
--- NOTE | 2024-01-30 05:25 | W.PN.CT ---
Addendum entered and electronically signed by Kamari Carroll MD 01/30/24 06:03:
I saw and examined the patient.
The PA's note was reviewed and I agree with the note.
Comment:
POD#1 s/p Emergency repair of ATAAD w/ #23 Bio-bentall, ligation of LM and RM ostia, CABG x 3 (PRINCESS to LAD, GSV to OM, GSV to PDA); DHCA w/ ACP, Open chest for ongoing coagulopathy
Overnight patient did well. Coagulopathy improved w/ transfusion of 1 cryo, 2 PRBC.
N: Sedated on fentanyl & precedex. GCS 3T. PERRLA - hold on sedation vacation until after return to OR w/ chest closure (timing TBD)
CV: EPI 6, 3, LEVO OFF, VASO 0.04. 101 sinus. 120/49. 27/14. CVP 9. CO/CI: 5.04/2.51. IABP 1:2. Doppler signal in B/L LE. Open chest dressing intact. CT: ANTERIOR MED: 525, MED: 120, PLEURAL: 200 since OR (last hour: PLEURAL: 10, MEDS:
0, ANTERIOR: 50). Maintain open chest dressing today - possible return to OR for washout/closure tomorrow vs. late today
P: SIMV/16/500/60/5. 99%. 2AM: 7.33/39/145/20.6/-4.6/98. ETT care, minimal secretions reported
GI: NPO
: Creat 0.8. UO: 895 since OR (last hour: 75)
HEME: Hgb 10.2. PLT: 111 @ 4:20 AM - continue to follow - may require products
ID: Continue ABX
ENDO: Insulin gtt at 24 secondary to hyperglycemia
FEN: Ca and K repleted
PROPH: ETT care, SCDs to B/L LE, GI prophylaxis
DISPO: ICU, full code, remains in serious, abeit improving condition
Original Note:
Today's Communication / Plan
-
POD #1
- hemodynamically stable on epi 6, 3, vaso & levo on/off, iabp 1:2
- precedex/fentanyl for sedation
- GCS 3T, +PERRLA, awaiting appropriate opportunity for sedation vacation
- coagulopathy improved
- hgb 10.2, CT output Ant med 525/12hr (50ml/hr recently), med 90/12hr, pleurals 160/12hr
- Cr 0.8 , UOP 895ml/12hr
- f/u plan for chest closure
- family updated & expressed understanding. all questions were answered
Assessment / Plan
-
- s/p Emergency repair of ATAAD w/ #23 Bio-bentall, ligation of LM and RM ostia, CABG x 3 (PRINCESS to LAD, GSV to OM, GSV to PDA); DHCA w/ ACP, Open chest for ongoing coagulopathy 01/29/[address] Carroll - POD #1
-s/p R femoral IABP removal & arterial repair of common femoral artery via cutdown & L femoral IABP insertion 01/29/[address] Alarcon
- CAD s/p aborted PCI c/b LM dissection extending retrograde to Type A dissection - now s/p Bentall with hemiarch replacement, cabg x3 01/29/24
- hemorrhagic shock c/b coagulopathy
- AF s/p cryo ablation 2015
- HTN
- HLD
- obesity
- hyperparathyroidism s/p parathyroidectomy
- spinal stenosis
- osteoporosis
- multiple tendon repairs
Discussed patient care with: Care Team
Subjective
Procedure
s/p Emergency repair of ATAAD w/ #23 Bio-bentall, ligation of LM and RM ostia, CABG x 3 (PRINCESS to LAD, GSV to OM, GSV to PDA); DHCA w/ ACP, Open chest for ongoing coagulopathy on 01/29/[address] Carroll
-
Date of Service: January 30, 2024
Objective Data
-
Lab Results
01/29/24 10:10
PT 22.3 Sec (11.4-14.6) H 01/29/24 10:10
INR 1.98 01/29/24 10:10
APTT > 200 Sec (23.4-35.0) H* 01/29/24 10:10
Vital Signs
Vital Signs
Temp Pulse Resp BP Pulse Ox
98.0 F 73 18 160/68 96
01/29/24 07:51 01/29/24 07:51 01/29/24 07:51 01/29/24 07:51 01/29/24 07:51
SaO2: 96
Physical Exam
-
General: Other
Cardiovascular: Regular rate & rhythm
Respiratory: Rales
Sternum: Unstable (OPEN CHEST)
Incision: Dressing Intact
Extremities: Edema +2
Data Reviewed
-
Lab Results: Results Reviewed
Medications: Active Meds Reviewed
Chest X-Ray: Image Reviewed
Vital Signs / Labs
-
Vital Signs and Labs:
Temp Pulse Resp BP Pulse Ox
99.2 F 94 0 118/92 98
01/30/24 04:00 01/30/24 04:02 01/30/24 04:02 01/30/24 04:00 01/30/24 04:02
01/29/24 01/29/24 01/29/24
08:52 09:24 09:48
WBC
RBC
Hgb
Hct
MCH
RDW
Plt Count
PT
APTT
Fibrinogen
pH
pCO2
pO2
HCO3
ABG O2 Sat (Measured)
POC ABG O2 Sat (Calc)
Potassium
Sodium
Chloride
Carbon Dioxide
Creatinine
Glucose
Lactic Acid
Calcium
Phosphorus
Total Bilirubin
Direct Bilirubin
AST
Alkaline Phosphatase
Total Protein
Albumin
Leukocyte Esterase Rfl
POC pH
POC pO2
POC pCO2
POC HCO3
POC Glucose
POC Sodium
POC Potassium
POC Ionized Calcium
POC ACT+
POC ACT Low Range > 397 H > 397 H 368 H
POC Hematocrit
Crossmatch IS Only
Crossmatch (Massive Bleed)
01/29/24 01/29/24 01/29/24
10:10 10:19 11:09
WBC
RBC
Hgb
Hct
MCH
RDW
Plt Count
PT 22.3 H
APTT > 200 H*
Fibrinogen
pH
pCO2
pO2
HCO3
ABG O2 Sat (Measured)
POC ABG O2 Sat (Calc) 99.9 H
Potassium
Sodium 119 L*
Chloride 89 L
Carbon Dioxide 14 L*
Creatinine 0.5 L
Glucose 102 H
Lactic Acid
Calcium 7.7 L
Phosphorus
Total Bilirubin
Direct Bilirubin
AST
Alkaline Phosphatase
Total Protein 5.2 L
Albumin 2.7 L
Leukocyte Esterase Rfl
POC pH 7.28 L
POC pO2 343 H
POC pCO2 49 H
POC HCO3
POC Glucose 130 H
POC Sodium
POC Potassium
POC Ionized Calcium
POC ACT+
POC ACT Low Range 284 H
POC Hematocrit 36 L
Crossmatch IS Only See Detail
Crossmatch (Massive Bleed) See Detail
01/29/24 01/29/24 01/29/24
11:13 15:02 15:48
WBC
RBC
Hgb
Hct
MCH
RDW
Plt Count
PT
APTT
Fibrinogen
pH
pCO2
pO2
HCO3
ABG O2 Sat (Measured)
POC ABG O2 Sat (Calc) 100.0 H 99.9 H
Potassium
Sodium
Chloride
Carbon Dioxide
Creatinine
Glucose
Lactic Acid
Calcium
Phosphorus
Total Bilirubin
Direct Bilirubin
AST
Alkaline Phosphatase
Total Protein
Albumin
Leukocyte Esterase Rfl Trace A
POC pH 7.33 L
POC pO2 410 H 348 H
POC pCO2 48 H
POC HCO3
POC Glucose 161 H 174 H
POC Sodium
POC Potassium 5.1 H 5.3 H
POC Ionized Calcium 0.89 L 0.86 L
POC ACT+
POC ACT Low Range
POC Hematocrit 18 L 23 L
Crossmatch IS Only
Crossmatch (Massive Bleed)
01/29/24 01/29/24 01/29/24
16:17 16:49 17:03
WBC
RBC
Hgb
Hct
MCH
RDW
Plt Count
PT
APTT
Fibrinogen
pH
pCO2
pO2
HCO3
ABG O2 Sat (Measured)
POC ABG O2 Sat (Calc) 99.6 H 98.5 H 99.8 H
Potassium
Sodium
Chloride
Carbon Dioxide
Creatinine
Glucose
Lactic Acid
Calcium
Phosphorus
Total Bilirubin
Direct Bilirubin
AST
Alkaline Phosphatase
Total Protein
Albumin
Leukocyte Esterase Rfl
POC pH 7.32 L 7.26 L
POC pO2 203 H 133 H 244 H
POC pCO2 49 H 49 H 48 H
POC HCO3
POC Glucose 177 H 167 H 152 H
POC Sodium
POC Potassium 3.3 L 3.1 L
POC Ionized Calcium 0.90 L 0.87 L 0.85 L
POC ACT+
POC ACT Low Range
POC Hematocrit 25 L 24 L 23 L
Crossmatch IS Only
Crossmatch (Massive Bleed)
01/29/24 01/29/24 01/29/24
17:39 17:51 18:21
WBC
RBC
Hgb
Hct
MCH
RDW
Plt Count
PT
APTT
Fibrinogen
pH
pCO2
pO2
HCO3
ABG O2 Sat (Measured)
POC ABG O2 Sat (Calc) 100.0 H 99.9 H 99.9 H
Potassium
Sodium
Chloride
Carbon Dioxide
Creatinine
Glucose
Lactic Acid
Calcium
Phosphorus
Total Bilirubin
Direct Bilirubin
AST
Alkaline Phosphatase
Total Protein
Albumin
Leukocyte Esterase Rfl
POC pH 7.75 H* 7.31 L
POC pO2 323 H 277 H 263 H
POC pCO2 23 L 54 H
POC HCO3 32 H
POC Glucose 126 H 154 H 178 H
POC Sodium 149 H 146 H 146 H
POC Potassium 2.9 L
POC Ionized Calcium 0.69 L 0.85 L 0.79 L
POC ACT+
POC ACT Low Range
POC Hematocrit 19 L 21 L 26 L
Crossmatch IS Only
Crossmatch (Massive Bleed)
01/29/24 01/29/24 01/29/24
18:50 19:27 19:40
WBC
RBC
Hgb
Hct
MCH
RDW
Plt Count
PT
APTT
Fibrinogen
pH
pCO2
pO2
HCO3
ABG O2 Sat (Measured)
POC ABG O2 Sat (Calc) 99.5 H 99.9 H
Potassium
Sodium
Chloride
Carbon Dioxide
Creatinine
Glucose
Lactic Acid
Calcium
Phosphorus
Total Bilirubin
Direct Bilirubin
AST
Alkaline Phosphatase
Total Protein
Albumin
Leukocyte Esterase Rfl
POC pH 7.47 H
POC pO2 156 H 261 H
POC pCO2 34 L
POC HCO3
POC Glucose 166 H 198 H
POC Sodium 146 H 148 H
POC Potassium 3.2 L 3.3 L
POC Ionized Calcium 0.75 L 0.77 L
POC ACT+ 567 H
POC ACT Low Range
POC Hematocrit 25 L 24 L
Crossmatch IS Only
Crossmatch (Massive Bleed)
01/29/24 01/29/24 01/29/24
20:02 20:27 20:45
WBC
RBC
Hgb
Hct
MCH
RDW
Plt Count
PT
APTT
Fibrinogen
pH
pCO2
pO2
HCO3
ABG O2 Sat (Measured)
POC ABG O2 Sat (Calc) 99.9 H 99.8 H
Potassium
Sodium
Chloride
Carbon Dioxide
Creatinine
Glucose
Lactic Acid
Calcium
Phosphorus
Total Bilirubin
Direct Bilirubin
AST
Alkaline Phosphatase
Total Protein
Albumin
Leukocyte Esterase Rfl
POC pH 7.32 L
POC pO2 282 H 229 H
POC pCO2
POC HCO3
POC Glucose 188 H 206 H
POC Sodium 148 H 148 H
POC Potassium 3.1 L 3.4 L
POC Ionized Calcium 0.78 L 0.76 L
POC ACT+ 891 H
POC ACT Low Range
POC Hematocrit 29 L 24 L
Crossmatch IS Only
Crossmatch (Massive Bleed)
01/29/24 01/29/24 01/29/24
21:03 21:20 21:50
WBC
RBC
Hgb
Hct
MCH
RDW
Plt Count
PT
APTT
Fibrinogen
pH
pCO2
pO2
HCO3
ABG O2 Sat (Measured)
POC ABG O2 Sat (Calc) 100.0 H 99.9 H 99.1 H
Potassium
Sodium
Chloride
Carbon Dioxide
Creatinine
Glucose
Lactic Acid
Calcium
Phosphorus
Total Bilirubin
Direct Bilirubin
AST
Alkaline Phosphatase
Total Protein
Albumin
Leukocyte Esterase Rfl
POC pH 7.26 L 7.52 H
POC pO2 464 H 304 H 134 H
POC pCO2
POC HCO3 20 L 32 H
POC Glucose 234 H 209 H 235 H
POC Sodium 154 H 153 H
POC Potassium
POC Ionized Calcium 1.01 L 0.93 L 0.93 L
POC ACT+
POC ACT Low Range
POC Hematocrit 21 L 20 L 24 L
Crossmatch IS Only
Crossmatch (Massive Bleed)
01/29/24 01/29/24 01/29/24
23:10 23:10 23:26
WBC 16.1 H
RBC 2.39 L
Hgb 7.6 L
Hct 21.1 L
MCH 31.8 H
RDW
Plt Count
PT
APTT 49.7 H
Fibrinogen 165 L
pH
pCO2 43 H
pO2 173 H
HCO3
ABG O2 Sat (Measured) 99.4 H
POC ABG O2 Sat (Calc)
Potassium 3.3 L 3.3 L
Sodium 149 H 146 H D
Chloride 110 H
Carbon Dioxide
Creatinine
Glucose 204 H
Lactic Acid
Calcium
Phosphorus 4.7 H
Total Bilirubin 1.7 H
Direct Bilirubin 0.7 H
AST 65 H
Alkaline Phosphatase 31 L
Total Protein 4.7 L
Albumin 3.0 L
Leukocyte Esterase Rfl
POC pH
POC pO2
POC pCO2
POC HCO3
POC Glucose 246 H
POC Sodium
POC Potassium
POC Ionized Calcium
POC ACT+
POC ACT Low Range
POC Hematocrit
Crossmatch IS Only
Crossmatch (Massive Bleed)
01/29/24 01/30/24 01/30/24
23:39 00:42 02:04
WBC
RBC
Hgb
Hct
MCH
RDW
Plt Count
PT
APTT
Fibrinogen
pH
pCO2
pO2
HCO3
ABG O2 Sat (Measured)
POC ABG O2 Sat (Calc)
Potassium
Sodium
Chloride
Carbon Dioxide
Creatinine
Glucose
Lactic Acid 10.8 H*
Calcium
Phosphorus
Total Bilirubin
Direct Bilirubin
AST
Alkaline Phosphatase
Total Protein
Albumin
Leukocyte Esterase Rfl
POC pH
POC pO2
POC pCO2
POC HCO3
POC Glucose 228 H 245 H
POC Sodium
POC Potassium
POC Ionized Calcium
POC ACT+
POC ACT Low Range
POC Hematocrit
Crossmatch IS Only
Crossmatch (Massive Bleed)
01/30/24 01/30/24 01/30/24
02:18 02:59 03:56
WBC
RBC 3.48 L
Hgb 10.6 L D
Hct 29.6 L
MCH
RDW 14.6 H
Plt Count 125 L
PT
APTT
Fibrinogen
pH 7.33 L
pCO2 39 H
pO2 145 H
HCO3 20.6 L
ABG O2 Sat (Measured) 98.8 H
POC ABG O2 Sat (Calc)
Potassium
Sodium
Chloride
Carbon Dioxide
Creatinine
Glucose
Lactic Acid 11.3 H*
Calcium
Phosphorus
Total Bilirubin
Direct Bilirubin
AST
Alkaline Phosphatase
Total Protein
Albumin
Leukocyte Esterase Rfl
POC pH
POC pO2
POC pCO2
POC HCO3
POC Glucose 189 H 187 H
POC Sodium
POC Potassium
POC Ionized Calcium
POC ACT+
POC ACT Low Range
POC Hematocrit
Crossmatch IS Only
Crossmatch (Massive Bleed)
24 01/30/24
04:27 05:03
WBC 12.0 H
RBC 3.38 L
Hgb 10.2 L
Hct 28.6 L
MCH
RDW 14.7 H
Plt Count 111 L
PT
APTT
Fibrinogen
pH
pCO2
pO2
HCO3
ABG O2 Sat (Measured)
POC ABG O2 Sat (Calc)
Potassium
Sodium 149 H
Chloride 112 H
Carbon Dioxide 21 L
Creatinine
Glucose 198 H
Lactic Acid
Calcium
Phosphorus
Total Bilirubin
Direct Bilirubin
AST
Alkaline Phosphatase
Total Protein
Albumin
Leukocyte Esterase Rfl
POC pH
POC pO2
POC pCO2
POC HCO3
POC Glucose 219 H
POC Sodium
POC Potassium
POC Ionized Calcium
POC ACT+
POC ACT Low Range
POC Hematocrit
Crossmatch IS Only
Crossmatch (Massive Bleed)
--- NOTE | 2024-01-30 06:00 | PTCARENOTE ---
pt awoke briefly, midazolam bolus x2 given and fentanyl drip increased
[2024-01-30 06:04] LABS: B.E. 1.7 mmol/L; HCO3 26.6 mmol/L (21-28); O2 Saturation % 99.5 % (94-98); PCO2 42 mmHg (32-35); PO2 130 mmHg (83-108); pH 7.41 (7.35-7.45)
[2024-01-30 06:06] LABS: Mixed Venous O2 Saturation 72.4 %
[2024-01-30 06:11] LABS: Hemoglobin 8.8 g/dL (12.0-16.0)
[2024-01-30 06:14] LABS: INR 0.98; PT 12.8 Sec (11.4-14.6)
[2024-01-30 06:15] LABS: APTT 33.5 Sec (23.4-35.0); Fibrinogen 243 MG/DL (199-459)
[2024-01-30 06:16] LABS: Glucose - Point of Care 137 mg/dl (70-99)
[2024-01-30 06:18] LABS: Albumin 3.3 g/dl (3.5-5.0); Alkaline Phosphatase 31 U/L (38-126); Direct Bilirubin 0.5 mg/dl (0.0-0.4); Phosphorus 2.9 mg/dl (2.5-4.5); Total Protein 4.8 g/dl (6.3-8.2)
[2024-01-30 06:24] LABS: Lactic Acid 8.4 mmol/L (0.7-2.0)
[2024-01-30] MEDS: ANCEF 5 IV ×3 (06:25→22:36)
[2024-01-30 06:29] LABS: AST (SGOT) 80 U/L (14-36)
[2024-01-30 06:35] LABS: ALT (SGPT) < 30 U/L (0-35)
--- NOTE | 2024-01-30 06:47 | W.PN.ANS.POP ---
Anesthesia Post Operative
- Anesthesia Post Op Note
Vital Signs Stable-See Nursing Note: Yes (dobutamine, epi, and vasopressin gtts)
Airway Patent: Yes (intubated, sedated)
Adequate Pain Control: Yes (fentanyl gtt)
Change in Mental Status: No
Current Postoperative Nausea & Vomiting: No
Anesthesia Complications: No
General Anesthetic Recall: No
Unplanned Admission: No
Post Op Hydration Adequate: Yes (IV)
[2024-01-30 07:13] LABS: Glucose - Point of Care 175 mg/dl (70-99)
[2024-01-30] MEDS: DILAUDID 0.5 MG IV ×3 (07:40→22:26)
[2024-01-30] MEDS: CRESTOR PO (07:46)
[2024-01-30] MEDS: PROTONIX PO (07:47)
[2024-01-30] MEDS: MAGNESIUM OXIDE PO ×2 (07:47→19:47)
[2024-01-30 07:51] LABS: ACT+ - POC > 1003 Seconds (82-134)
[2024-01-30 07:51] LABS: ACT+ - POC > 1003 Seconds (82-134)
[2024-01-30 07:51] LABS: ACT+ - POC > 1003 Seconds (82-134)
[2024-01-30 07:51] LABS: ACT+ - POC > 1003 Seconds (82-134)
[2024-01-30 07:51] LABS: ACT+ - POC > 1003 Seconds (82-134)
[2024-01-30 07:51] LABS: ACT+ - POC > 1003 Seconds (82-134)
[2024-01-30 07:51] LABS: ACT+ - POC > 1003 Seconds (82-134)
--- NOTE | 2024-01-30 08:00 | PTCARENOTE ---
Assumed care of patient. Walking rounds completed with previous RN. Pt assessed while she was lying in bed. Pt intubated and sedated. POX 97%. ETT 8.0 22@ lip. SIMV 50% 16 5 500. Lungs diminished anteriorly. No secretions via oral cavity. mouth care
completed. Right and left pleural chest tubes y-sited to 1 atrium to -20cm suction draining serosanguinous fluid. Mediastinal x2 chest tubes y-sited to 1 atrium to -20cm suction not draining at this time. NGT to center chest to cont. low suction
draining red fluid. No air leaks, tidaling, crepitus noted. Sedated with precedex and fentanyl gtts. Pt occasionally opens her eyes. Sedation vacation completed per Dr. Myles, pt able to open/close eyes to command. Small movement of b/l fingers and
toes when asked to wiggle to command. PERRLA 2mm brisk. Pt re-sedated post neuro exam. SR-ST on tele with rates 90s-100s. BP 120/47. CI 2.14. PA pressures 20s/10s. CVP 9. Epicardial v-wire set to back up 50/8/1, no pacing noted. IABP to left groin
set to 1:2 MAX augmentation. When paused, no significant hemodynamic effect. Bilateral radial pulses weakly palpable. Bilateral DPPT pulses present via doppler. +1 generalized edema. Abdomen soft, round, obese, nontender. Hypoactive BS. Yap
catheter intact draining adequate amounts of clear yellow urine. Sternum remains open with Ioban intact. Right groin cut down site ecchymotic with Aquacel-CDI. Left groin IABP site with small amount of oozing noted to dressing, otherwise soft. LSVG
harvest site with Aquacel-CDI. 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 Right IJ cordis and swan floated to 47cm. Left radial baron intact. All lines flushed, leveled, zeroed. Left wrist 20g PIV intact infusing insulin per Critical Care Glycemic Protocol. See MAR
for medication administration. See worklist for complete nursing assessment and gtt titration.
[2024-01-30 08:06] LABS: Glucose - Point of Care 172 mg/dl (70-99)
[2024-01-30] MEDS: ADRENALIN 250 IV (08:23)
[2024-01-30] MEDS: LIDOCAINE 4% PATCH 1 PATCH TOPICAL (08:23)
[2024-01-30 09:02] LABS: Glucose - Point of Care 154 mg/dl (70-99)
[2024-01-30 09:09] LABS: Glycohemoglobin (HgbA1c) 5.5 % (4.0-5.6)
--- NOTE | 2024-01-30 09:16 | CON.INTV ---
Consultation
Consultation Request
Date/Time Consultation Requested: 01/29/2024 - 2251
Date/Time Consultation Performed: 01/30/2024 - 854
Requesting Provider: KRISTIN Murguia
Performing Provider: Earle Graham MD
Reason for Consultation: s/p repair of AATAD + CABG x3
Medical History
-
Chief Complaint: Chest pain
History of Present Illness:
73-year-old female with a past medical history of A-fib s/p cryoablation (2015), hypothyroidism, hypertension, hyperlipidemia, spinal stenosis and asthma who initially presented with worsening angina and left heart catheterization. LHC performed on
01/29/2024 and there was great difficulty in advancing equipment to predilate the lesion. Patient unfortunately developed an LAD dissection, and patient had an intra-aortic balloon pump placed by vascular surgery for hemodynamic support.
Cardiothoracic surgery consulted, and patient went to the OR where initial EUSEBIA showed moderate�severe AI with flap of type a aortic dissection visible in the ascending aorta and proximal arch. There also was extensive dissection involving the
entire aortic root. Patient underwent emergency repair of her type a dissection, ligation of LM and RM ostia, CABG x 3 with deep hypothermic secretory arrest and antegrade cerebral perfusion. At the procedures end, pt with open chest due to
ongoing coagulopathy and open chest dressing was placed. Patient required multiple blood transfusions including 10 units PRBC, 4 units platelets, 8 units FFP, and 9 mg of factor VIIa. There were no immediate complications postoperatively, and
patient was transferred to the CVICU for further care with critical care services consulted for additional management/recommendations.
Patient seen and evaluated today at bedside. She remains intubated on SIMV at 16/500/40%/5, breathing at 16 breaths/min, with PIP of 22 cmH2O and VTe of 445 mL. She has 4 chest tubes including a left & right pleural chest tube + mediastinal chest
tubes x 2. Current vitals are: HR: 90, BP: 120/63, SpO2: 96%, PAP 24/15. She is sedated with Precedex at 1.2mcg/kg/hr + fentanyl @ 150mcg/hr, on dobutamine at 3mcg/kg/min, also on epinephrine at 2mcg/min, and vasopressin at 0.01 units/min.
Patient appears to be in no acute distress and is going back to OR tomorrow for chest closure. As of today, she has been weaned off of the IABP.
PMHx: Paroxysmal A-fib s/p cryoablation (2016), hypertension, carotid artery atherosclerosis, asthma, hyperlipidemia, obesity, hyperparathyroidism s/p parathyroidectomy, hypothyroidism, spinal stenosis
PSHx: Parathyroidectomy, multiple tendon repairs, spinal fusion, hysterectomy
Past Medical History
Past Medical History: Other (Above as per HPI)
Past Surgical History: Other (Above as per HPI)
Social History
Tobacco: Non-smoker
Alcohol: None
Drug: None
Employment: Retired
Family History
Family History: Unable to Obtain
Allergies / Home Medications
Allergies
Allergy/AdvReac Type Severity Reaction Status Date / Time
adhesive Allergy Rash Verified 01/29/24 08:06
chlorhexidine Allergy Hives Verified 01/29/24 08:06
levofloxacin Allergy affects Verified 01/29/24 08:06
tendons
pravastatin Allergy Unknown Verified 01/29/24 07:54
Home Medications
�Medication �Instructions �Recorded �Confirmed �Last Taken �Type
Bifidobacterium infantis 4 mg 4 mg PO DAILY stomach 01/29/24 01/29/24 01/29/24 07:00 History
capsule (Align)
Cbd 50 ml PO HS Sleep 01/29/24 01/30/24 01/28/24 History
alendronate 70 mg tablet (Fosamax) 70 mg PO QWEEK bones 01/29/24 01/29/24 Unknown History
amlodipine 2.5 mg tablet 2.5 mg PO BID Blood Pressure 01/29/24 01/29/24 01/29/24 07:00 History
aspirin 81 mg tablet,delayed 81 mg PO DAILY blood thinner 01/29/24 01/29/24 01/29/24 History
release
biotin 10,000 mcg chewable tablet 10,000 mcg PO DAILY Supplement 01/29/24 01/29/24 01/28/24 History
(Hair, Skin and Nails (biotin))
cholecalciferol (vitamin D3) 25 25 mcg PO DAILY Supplement 01/29/24 01/29/24 01/28/24 History
mcg (1,000 unit) capsule (Vitamin
D3)
clopidogrel 75 mg tablet (Plavix) 75 mg PO DAILY blood thinner 01/29/24 01/29/24 01/29/24 07:00 History
famotidine 40 mg tablet 40 mg PO DAILY stomach 01/29/24 01/29/24 01/28/24 History
levothyroxine 50 mcg capsule 50 mcg PO DAILY thyroid 01/29/24 01/29/24 01/29/24 07:00 History
lisinopril 10 mg tablet 10 mg PO DAILY Blood Pressure 01/29/24 01/29/24 01/28/24 History
magnesium 200 mg tablet 400 mg PO DAILY Supplement 01/29/24 01/29/24 01/29/24 History
metoprolol tartrate 25 mg tablet 25 mg PO BID blood pressure 01/29/24 01/29/24 01/28/24 02:00 History
psyllium husk 0.4 gram capsule 0.4 g PO HS stool 01/29/24 01/29/24 01/29/24 History
(Metamucil)
rosuvastatin 10 mg tablet 10 mg PO DAILY cholesterol 01/29/24 01/29/24 01/29/24 07:00 History
Review of Systems
-
Unable to Obtain full review of systems at this time due to: Patient Intubation
Vitals / Labs / Diagnostic Testing
Vital Signs
Temp Pulse Resp BP Pulse Ox
97.8 F 93 16 98/52 97
01/30/24 16:00 01/30/24 16:05 01/30/24 16:05 01/30/24 16:00 01/30/24 16:05
Laboratory Results
01/29/24 01/29/24 01/30/24
23:08 23:10 02:18
PT Cancelled 14.0 12.4
INR Cancelled 1.10 0.94
APTT Cancelled 49.7 H 32.4
pH 7.36 7.33 L
pCO2 43 H 39 H
pO2 173 H 145 H
HCO3 24.3 20.6 L
O2 Delivery Level Vent Vent
01/30/24 01/30/24
05:50 10:58
PT 12.8
INR 0.98
APTT 33.5
pH 7.41 7.45
pCO2 42 H 43 H
pO2 130 H 143 H
HCO3 26.6 29.9 H
O2 Delivery Level
Diagnostic Testing:
Physical Exam
-
HEENT: Normocephalic and Anicteric
Cardiovascular: S1/S2
Respiratory: Wheeze (Negative), Rales (Negative), Rhonchi (Negative) and Other (ETT in place; mechanical breath sounds heard bilaterally)
GI: Soft, Non Distended and Non Tender
Neurology: Other (Sedated)
Skin: Warm and Dry
General: Comfortable and Chills (Negative)
Assessment
-
Assessment: 73-year-old F with a PMHx of A-fib s/p cryoablation (2016), hypothyroidism, hypertension, hyperlipidemia, spinal stenosis and asthma who initially presented with worsening angina and left heart catheterization. [facility] performed on
01/29/2024 and there was great difficulty in advancing equipment to predilate the lesion. Patient unfortunately developed an LAD dissection, and patient had an intra-aortic balloon pump placed by vascular surgery for hemodynamic support.
Cardiothoracic surgery consulted, and patient went to the OR where initial EUSEBIA showed moderate�severe AI with flap of type a aortic dissection visible in the ascending aorta and proximal arch. There also was extensive dissection involving the
entire aortic root. On 01/28/2023, patient underwent emergency repair of her type a dissection, ligation of LM and RM ostia, CABG x 3 with deep hypothermic circulatory arrest and antegrade cerebral perfusion. At the procedures end, pt with open
chest due to ongoing coagulopathy and open chest dressing was placed. Patient required multiple blood transfusions including 10 units PRBC, 4 units platelets, 8 units FFP, and 9 mg of factor VIIa. There were no immediate complications
postoperatively, and patient was transferred to the CVICU for further care with critical care services consulted for additional management/recommendations.
Chronic conditions SUPERVISING CHEF: Paroxysmal A-fib s/p cryoablation (2016), hypertension, carotid artery atherosclerosis, asthma, hyperlipidemia, obesity, hyperparathyroidism s/p parathyroidectomy, hypothyroidism, spinal stenosis
Impression:
#CAD s/p LHC c/b ATAAD involving LM/RM/aortic root and extending to proximal aortic arch s/p repair with Bio-Bentall, ligation of LM/RM ostia and CABG x3 (POD#1)
#Coagulopathy
#Open chest
#Ventilator dependent respiratory failure
#Lactic acidosis
#Hypernatremia
#Anemia - due to procedure above
#Transaminitis
Plan:
Ventilator settings reviewed
FiO2 will be weaned to maintain SpO2 >94%
Minute ventilation will be adjusted
Arterial blood gases will be monitored
Spontaneous breathing trial will be attempted with hopeful extubation after anesthesia/sedation wear off
prn nebulized bronchodilators
Pulmonary artery catheter parameters will be followed
Pressors/antihypertensive/inotropes/diuretics will be provided as needed
Maintain MAP>65
Replete electrolytes with K>4, Mg>2
Monitor chest tube output (L+R pleural chest tubes + mediastinal chest tubes x2)
Monitor hemoglobin
Monitor platelet count and coags
Transfuse blood product if needed to keep Hb>8g/dL and plt>50k
CT surgery managing chest tubes
Monitor blood sugar with goal BG 140-180mg/dL
Insulin drip per protocol
Aspiration precautions
VAP prevention protocol
DVT prophylaxis
Early nutrition
Early mobilization
Critical care statement: A total of 43 minutes of critical care time was provided for this patient today. This includes management of ventilator, spontaneous breathing trial, arterial blood gases, pressors, of unstable vital signs, evaluation of the
patient at bedside, reviewing the patient's pertinent medical records including radiographs, microbiology, laboratory evaluations, and discussion with primary team and critical care nursing.
Data:
CXR 01-30-2024: Postoperative changes; No pneumothorax
--- NOTE | 2024-01-30 09:40 | CON.CAR ---
Addendum entered and electronically signed by Kolton Burgos MD 01/30/24 10:47:
I saw and examined the patient.
The SHELL MOLD BONDING MACHINE OPERATOR's note was reviewed and I agree with the note.
Comment: 73-year-old female (known to her primary mate fishing vessel, Dr. Cervantes), with paroxysmal atrial fibrillation, coronary artery disease, hypertension, dyslipidemia, and hypothyroidism, who presented with worsening angina and was referred for
cardiac catheterization. The plan was for PCI of her LAD with Dr. Cook, complicated by ATAAD and need for emergent surgery.
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
Coronary artery disease
Femoral artery repair
-Emergency repair ATAAD (#23 bio Bentall), ligation of LM/R and ostia, CABG x 3 (PRINCESS�LAD, GSV�OM, GSV�PDA) on 01/29/[address] Carroll
-Case complicated by coagulopathy which is improving
-Hemodynamically stable with support
- continue to wean as able
Plan for possible closure tomorrow
Original Note:
Consultation
Consultation Request
Date/Time Consultation Requested: 01/29/24 23:00
Date/Time Consultation Performed: 01/30/24 09:10
Requesting Provider: KRISTIN Khalil
Performing Provider: KRISTIN Crowell for Dr. Burgos
Reason for Consultation: Dissected LM, cardiac mgmt
Medical History
-
Chief Complaint: Worsening angina
History of Present Illness:
Leni Zapien is a 73-year-old female (known to her primary mate fishing vessel, Dr. Cervantes), with paroxysmal atrial fibrillation, coronary artery disease, hypertension, dyslipidemia, and hypothyroidism, who presented with worsening angina and was
referred for cardiac catheterization. The plan was for PCI of her LAD with Dr. Cook. She had left main dissection during PCI attempt. Intra-aortic balloon pump was placed. Cardiothoracic surgery was immediately consulted. She went to the
operating room yesterday evening emergently with Dr. Carroll. She had ATAAD involving the LM/RM/aortic root and extending to the proximal arch with CABG x 3. Her chest was left open due to complications with coagulopathy. She was on DAPT. Her
surgery was also complicated by bleeding from right DECK STEWARD IABP sheath requiring vascular surgery consultation intraoperatively. She is currently intubated and sedated with an open chest in the CVICU on IABP.
Past Medical History
Past Medical History: Arrhythmias (Paroxysmal atrial fibrillation status post cryoablation [2016]), CAD, HTN, Hypercholesterolemia and Hypothyroidism
Past Surgical History: Cardiac, Gynecological and Orthopedic
Social History
Personal:
Living: With Family
Employment: Retired
Family History
Family History: Unable to Obtain
Allergies / Home Medications
Allergy/AdvReac Type Severity Reaction Status Date / Time
adhesive Allergy Rash Verified 01/29/24 08:06
chlorhexidine Allergy Hives Verified 01/29/24 08:06
levofloxacin Allergy affects Verified 01/29/24 08:06
tendons
pravastatin Allergy Unknown Verified 01/29/24 07:54
�Medication �Instructions �Recorded �Confirmed �Type
Bifidobacterium infantis 4 mg 4 mg PO DAILY stomach 01/29/24 01/29/24 History
capsule (Align)
Cbd 50 ml PO HS Sleep 01/29/24 History
alendronate 70 mg tablet (Fosamax) 70 mg PO QWEEK bones 01/29/24 01/29/24 History
amlodipine 2.5 mg tablet 2.5 mg PO BID Blood Pressure 01/29/24 01/29/24 History
aspirin 81 mg tablet,delayed 81 mg PO DAILY blood thinner 01/29/24 01/29/24 History
release
biotin 10,000 mcg chewable tablet 10,000 mcg PO DAILY Supplement 01/29/24 01/29/24 History
(Hair, Skin and Nails (biotin))
cholecalciferol (vitamin D3) 25 25 mcg PO DAILY Supplement 01/29/24 01/29/24 History
mcg (1,000 unit) capsule (Vitamin
D3)
clopidogrel 75 mg tablet (Plavix) 75 mg PO DAILY blood thinner 01/29/24 01/29/24 History
famotidine 40 mg tablet 40 mg PO DAILY stomach 01/29/24 01/29/24 History
levothyroxine 50 mcg capsule 50 mcg PO DAILY thyroid 01/29/24 01/29/24 History
lisinopril 10 mg tablet 10 mg PO DAILY Blood Pressure 01/29/24 01/29/24 History
magnesium 200 mg tablet 400 mg PO DAILY Supplement 01/29/24 01/29/24 History
metoprolol tartrate 25 mg tablet 25 mg PO BID blood pressure 01/29/24 01/29/24 History
psyllium husk 0.4 gram capsule 0.4 g PO HS stool 01/29/24 01/29/24 History
(Metamucil)
rosuvastatin 10 mg tablet 10 mg PO DAILY cholesterol 01/29/24 01/29/24 History
Review of Systems
-
Unable to obtain full review of systems at this time due to: Patient Intubation
Physical Exam
Vital Signs
Temp Pulse Resp BP Pulse Ox
98.7 F 104 16 114/78 98
01/30/24 09:00 01/30/24 09:00 01/30/24 09:00 01/30/24 09:00 01/30/24 09:00
Lab Results
Troponin I < 0.012 ng/ml 01/29/24 10:10
Physical Exam
General: Well Developed, Well Nourished, No Apparent Distress and Comfortable
HEENT: Normocephalic, Anicteric and Moist Mucous Membranes
Respiratory: Clear, Non Labored Respirations and Other (Mechanical ventilation)
Cardiac: S1/S2, Regular Rhythm and Other (Open chest)
Breast: Deferred by me
GI: Soft, Non Distended and Normal Bowel Sounds
Rectal: Deferred by Provider
Genito-urinary: No Costovertebral Tender
Musculoskeletal: No Clubbing, No Cyanosis and Edema (Lower extremity peripheral edema)
Skin: Warm and Dry
Neuro: Sedated
Hematologic/Lymphatic: No Lymphadenopathy
Psych: Calm
Impression / Plan
-
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
Coronary artery disease
Femoral artery repair
-Emergency repair ATAAD (#23 bio Bentall), ligation of LM/R and ostia, CABG x 3 (PRINCESS�LAD, GSV�OM, GSV�PDA) on 01/29/[address] Carroll
-Case complicated by coagulopathy which is improving
-Hemodynamically stable with support
-Follow telemetry
-Chest closure per CTS
Paroxysmal atrial fibrillation
-Cryoablation in 2016
-[id number] score at least 3 (vascular disease, female gender, age 73)
-Follow telemetry
Hypertension, now hypotensive, all agents on hold with vasopressor support
HLD, goal LDL <55, resume rosuvastatin when able
Hypothyroidism on levothyroxine
Data Reviewed
-
EKG: Report Reviewed by me (Sinus rhythm, prolonged QT, rate 100)
Radiology: Report Reviewed by me (CXR: No pneumothorax)
Labs: Labs Reviewed by me
Old Records: Reviewed
--- NOTE | 2024-01-30 09:46 | W.PN.VS ---
Addendum entered and electronically signed by Carlos Alarcno MD 01/30/24 10:00:
Seen and examined with FLORENCE Lyn. Agree with findings as noted below. Patient remains critical. Remains intubated. Chest remained open due to coagulopathy. Per nursing, the CT surgery plan is to take back to the OR tomorrow for possible chest
closure.
Right groin dressing clean dry and intact. No hematoma noted. Left groin intra-aortic balloon pump site flat, no hematoma. No active bleeding.
Feet are warm with palpable DP pulses bilaterally (right side 1+/2+, left side 2+). Confirmed with Doppler.
Plan/ No acute vascular issues status post removal of intra-aortic balloon pump right groin, primary repair of common femoral artery, vascular access in the left common femoral artery for new balloon pump placement. Will sign off at this time.
Please call with questions. As long as groin janell can be removed by CT surgery group, can follow-up in the office in 4 to 6 weeks following discharge.
Original Note:
Today's Communication / Plan
-
Patient seen and examined with Dr. Carlos Alarcon, below plan reviewed with attending
Assessment/Plan
-
Assessment: 73-year-old female POD #1 emergent repair of left main dissection with CT surgery and emergent right groin cutdown with primary repair of common femoral artery
Plan:
Continue primary care by CT surgery
Patient can follow-up in our office upon discharge for staple removal/site check from right groin
We will sign off please call with questions or concerns
Subjective Data
-
Date of Service: January 30, 2024
Patient seen and examined at bedside, patient is currently intubated and sedated.
Objective Data
-
Vital Signs
Temp Pulse Resp BP Pulse Ox
98.7 F 104 16 114/78 98
01/30/24 09:00 01/30/24 09:00 01/30/24 09:00 01/30/24 09:00 01/30/24 09:00
Intake and Output
01/29/24 01/30/24 01/31/24
06:59 06:59 06:59
Intake Total 2152.6 / 2266.6 421.9 / 421.9
Output Total 1974 220 / 220
Balance 177.6 / 226.6 201.9 / 201.9
Intake:
IV fluids (Total) 952.6 / 1066.6 371.9 / 371.9
C.O 150 / 150 30 / 30
Cordis 80 / 90 /
Dobut 17.4 / 26.1 26.1 / 26.1
Epi 150.0 / 172.5 63.8 / 63.8
Fentanyl 35 / 42.5 27.5 / 27.5
Insulin 87 / 103 46 / 46
Levo 60.0 / 60.0 0 / 0
Precedex 182.2 / 206.5 82.5 / 82.5
VIP 80 / 90 30 / 30
Vasopressin 111 / 126 36 / 36
IV piggybacks 100 / 100 50 / 50
Blood Products 1100 / 1100
Albumin 5% 500 / 500
Cryoprecipitate 100 / 100
Packed red blood cells 500 / 500
Output:
CT Output (Total) 575 / 575 50 / 50
Anterior 575 / 575 50 / 50
Multi-Chest Tube to Single 330 / 345 35 / 35
Drain Output
Left Pleural Right Pleural 220 / 225
Mediastinal x2 110 / 120 10 / 10
Urine, Yap 1070 / 1120 135 / 135
Calcium 8.5 mg/dl (8.4-10.2) D 01/30/24 04:27
Phosphorus 2.9 mg/dl (2.5-4.5) 01/30/24 05:50
Magnesium 2.1 mg/dl (1.6-2.3) 01/30/24 04:27
Total Bilirubin 2.0 mg/dl (0.2-1.3) H 01/30/24 05:50
Direct Bilirubin 0.5 mg/dl (0.0-0.4) H 01/30/24 05:50
AST 80 U/L (14-36) H 01/30/24 05:50
ALT < 30 U/L (0-35) 01/30/24 05:50
Alkaline Phosphatase 31 U/L (38-126) L 01/30/24 05:50
Total Protein 4.8 g/dl (6.3-8.2) L 01/30/24 05:50
Albumin 3.3 g/dl (3.5-5.0) L 01/30/24 05:50
Physical Exam
-
Sedated
Tolerating ventilator
IABP in place, ST
ABD soft nondistended
Right groin dressing CDI, no evidence of hematoma, surrounding compartments soft, left groin IABP site CDI with no evidence of hematoma
Bilateral lower extremity with trace edema
Bilateral DP pulse palpable +1, confirmed with Doppler
[2024-01-30 10:01] LABS: Glucose - Point of Care 132 mg/dl (70-99)
[2024-01-30 11:07] LABS: Hemoglobin 8.3 g/dL (12.0-16.0); Mean Corp Hgb Conc. 36.1 g/dL (33.0-37.0); Mean Corpuscular Volume 85.8 fL (81.0-99.0); Red Blood Cell Count 2.68 10^6/uL (4.20-5.40); Red Cell Dist. Width 15.1 % (11.5-14.5); White Blood Cell Count 9.1 10^3/uL (4.8-10.8)
[2024-01-30] MEDS: SUBLIMAZE 100 IV ×2 (11:08→19:40)
[2024-01-30 11:10] LABS: Mixed Venous O2 Saturation 70.9 %
[2024-01-30 11:15] LABS: B.E. 5.4 mmol/L; HCO3 29.9 mmol/L (21-28); O2 Saturation % 98.2 % (94-98); PCO2 43 mmHg (32-35); PO2 143 mmHg (83-108); pH 7.45 (7.35-7.45)
[2024-01-30] MEDS: ASPIRIN 300 MG RECTAL (11:15)
[2024-01-30 11:22] LABS: Lactic Acid 4.2 mmol/L (0.7-2.0)
[2024-01-30 11:24] LABS: Blood Urea Nitrogen 17 mg/dl (7-17); Carbon Dioxide 33 mmol/L (22-30); Chloride 113 mmol/L (98-107); Estimated Creatinine Clearance 85 ml/min; Glucose 114 mg/dl (70-99); Sodium 149 mmol/L (135-145); eGFR > 60.00
[2024-01-30 11:35] LABS: Calcium 8.6 mg/dl (8.4-10.2); Magnesium 2.1 mg/dl (1.6-2.3)
[2024-01-30] MEDS: VANCOCIN 200 IV ×2 (11:48→23:59)
[2024-01-30 11:55] LABS: Glucose - Point of Care 100 mg/dl (70-99)
[2024-01-30 11:56] LABS: Mean Platelet Volume 9.8 fL (7.4-10.4); Platelet Count 58 10^3/uL (130-400)
--- NOTE | 2024-01-30 12:00 | PTCARENOTE ---
Pt reassessed. Pt remains intubated and sedated on fentanyl and precedex gtts. NSR-ST on tele with rates in the 90s-100s. CI 2.22. Epi @ 3, Vaso @ 0.02. POX 97%. SIMV 40% [address] output WNL. Surgical sites stable. Yap draining adequate
amounts of clear yellow urine. All lines remain intact. IABP remains 1:2. 1unit Platelets infused.
--- NOTE | 2024-01-30 12:55 | PTCARENOTE ---
Left femoral IABP d/c by CT COMPLIANCE QUALITY PERFORMANCE ANALYST. Fem stop device in place per CT COMPLIANCE QUALITY PERFORMANCE ANALYST. Left DPPT pulses present via doppler. Pt tolerated.
--- NOTE | 2024-01-30 13:53 | W.PN.UPDATE ---
Update Note
Progress Note Update
dobutamine @ 3. Epi/vasopressin weaned off, Precedex @ 1.2/Fentanyl @ 100, levophed @ 1. Cont Ancef/Vanc�while chest open. Hb 8.3. Plt 58k>2Plts, Left femoral IABP removed without difficulty (CPT #35025). HD stable. Repeat Hb 7.1>2PRBC + Bumex drip
as d/w Dr. Myles. Scheduled to return to OR for sternal closure 01/30.
[2024-01-30 13:59] LABS: Glucose - Point of Care 116 mg/dl (70-99)
--- NOTE | 2024-01-30 15:30 | PTCARENOTE ---
1 unit Plt infused
--- NOTE | 2024-01-30 15:41 | CM ---
CM following for DC planning needs.
Pt. admitted 01/28 from medical lab technician, underwent emergent CT Surgery.
Pt. resides w/ spouse in a private, 2 story home.
Pt. currently vented/ sedated; family not at bedside. Will re-attempt at a later time to speak w/ patient/ family.
DC needs uncertain at this time; will depend on medical progress.
Will follow closely.
[2024-01-30 15:54] LABS: Glucose - Point of Care 72 mg/dl (70-99)
[2024-01-30] MEDS: LASIX 20 MG IV (15:54)
--- NOTE | 2024-01-30 16:00 | PTCARENOTE ---
Pt reassessed. Intubated and sedated on fentanyl and precedex gtts. Able to slightly wiggle fingers and toes spontaneously, does not follow commands at this time. PERRLA 2. NSR on tele with rates in the 90s. BP 115/62. CI 2.12. Epi 1, Dobut 3, Vaso
0.01. Bilateral radial pulses and bilateral DPPT pulses weakly palpable. generalized +1 edema. POX 97%. All lines intact. Surgical sites stable. Left groin old IABP site soft, dressing CDI. CT output WNL. Yap draining adequate amounts of clear
yellow urine.
[2024-01-30 17:03] LABS: Glucose - Point of Care 109 mg/dl (70-99)
[2024-01-30 17:26] LABS: Hepatitis B Surface Antigen Negative (Negative)
[2024-01-30 17:35] LABS: HIV Combo Negative (Negative)
[2024-01-30 17:43] LABS: Hepatitis C Antibody Negative (Negative)
[2024-01-30 18:00] LABS: Glucose - Point of Care 90 mg/dl (70-99)
--- NOTE | 2024-01-30 18:00 | PTCARENOTE ---
Removed patient's ring d/t hand swelling, given to pt's son.
[2024-01-30 18:05] LABS: Hemoglobin 7.1 g/dL (12.0-16.0); Mean Corp Hgb Conc. 36.8 g/dL (33.0-37.0); Mean Corpuscular Hgb 30.2 pg (27.0-31.0); Mean Corpuscular Volume 82.1 fL (81.0-99.0); Mean Platelet Volume 9.8 fL (7.4-10.4); Platelet Count 94 10^3/uL (130-400); Red Blood Cell Count 2.35 10^6/uL (4.20-5.40); Red Cell Dist. Width 15.4 % (11.5-14.5); White Blood Cell Count 10.9 10^3/uL (4.8-10.8)
[2024-01-30 18:06] LABS: Hematocrit 19.3 % (37.0-47.0)
[2024-01-30 18:33] LABS: Chloride 110 mmol/L (98-107); Estimated Creatinine Clearance 85 ml/min; Potassium 4.2 mmol/L (3.5-5.1); Sodium 144 mmol/L (135-145); eGFR > 60.00
[2024-01-30 18:34] LABS: Blood Urea Nitrogen 18 mg/dl (7-17); Calcium 8.3 mg/dl (8.4-10.2); Carbon Dioxide 33 mmol/L (22-30); Glucose 89 mg/dl (70-99)
[2024-01-30 18:44] LABS: Lactic Acid 2.3 mmol/L (0.7-2.0)
--- NOTE | 2024-01-30 18:46 | PTCARENOTE ---
1unit PRBC infusing
[2024-01-30] MEDS: BUMEX 50 IV (19:05)
[2024-01-30 19:11] LABS: Glucose - Point of Care 117 mg/dl (70-99)
[2024-01-30 20:05] LABS: Glucose - Point of Care 88 mg/dl (70-99)
--- NOTE | 2024-01-30 20:30 | PTCARENOTE ---
Assumed care of patient at 1900. Patient found in bed intubated RASS -3 at time of assessment. Patient's pupils are approx 2mm in size equal and reactive to light. Lung sounds are clear and equal bialaterally, patient has an 8.0 ETT 22 at the lip
SIMV settings see worklist for details. Patient has 4xCT: R/L pleural to one atrium and 2xmeds to another atrium with red sanguineous output. Patient also has NGT hooked to wall suction for open chest with dark red sanguineous output. Heart sounds
have a regular rate and rhythm, patient is NSR on the monitor. Patient has weak but palapble radial pulses and dorsalis pedis pulses are present with doppler. Patient has +1 to +2 generalized anasarca. There is a temporary pm in place with VVI
setting of 50/8/1. Patient has round obese abdomen with hypoactive BS. There is a martino in place draining clear yellow urine with high UOP following initiation of bumex gtt. Patient has an open chest dressing vac seal that is CDI. An ABD dressing
over CT wound that is CDI. A r groin puncture with aquacell dressing that is CDI some ecchymosis noted around site. A L groin puncture with 4x4 gauze dressing that is CDI. And LLE incision with aquacell dressing that is CDI. Patient has the
following lines: R IJ cordis with swan at 47, a L radial A line, and L wrist PIV. Patient has the following gtts: Insulin gtt column 5, Cordis/VIP KVO, Dobut@3, precedex @1.2, fentanyl @150, Bumex@2. Vital signs as follows: T-97.3 BP-116/63 MAP-82
RR-16 saO2-95% CI 1.68 CVP-12 PAP- 26/16.
--- NOTE | 2024-01-30 20:40 | PTCARENOTE ---
CT PA advised of low CI advised titrating Dobut to 4.
--- NOTE | 2024-01-30 21:35 | PTCARENOTE ---
CT PA advised of high UOP. Orders received to adjust Bumex rate to 1mg/hr.
--- NOTE | 2024-01-30 21:40 | PTCARENOTE ---
CI 1.[address] PA notified advised titrating up to 5. Ordered labs to be drawn in approx thirty minutes.
[2024-01-30 22:07] LABS: Glucose - Point of Care 148 mg/dl (70-99)
[2024-01-30 22:31] LABS: Hematocrit 29.5 % (37.0-47.0); Mean Corp Hgb Conc. 37.3 g/dL (33.0-37.0); Mean Corpuscular Hgb 30.4 pg (27.0-31.0); Mean Corpuscular Volume 81.5 fL (81.0-99.0); Mean Platelet Volume 9.9 fL (7.4-10.4); Platelet Count 88 10^3/uL (130-400); Red Blood Cell Count 3.62 10^6/uL (4.20-5.40)
[2024-01-30 22:32] LABS: B.E. 11.9 mmol/L; HCO3 34.7 mmol/L (21-28); PCO2 37 mmHg (32-35); PO2 87 mmHg (83-108); pH 7.58 (7.35-7.45)
[2024-01-30 22:35] LABS: Mixed Venous O2 Saturation 72.9 %
--- NOTE | 2024-01-30 22:40 | PTCARENOTE ---
Patient alert at this time. Following commands appropriately ie pet technologist hand, wiggles toes. Patient appears to be in pain/distress, over breathing ventilator BP and HR elevated as well dilaudid and versed administered according to parameters.
Following reassessment patient's BP has normalized and pain appears to have resolved.
[2024-01-30 22:42] LABS: Lactic Acid 1.5 mmol/L (0.7-2.0)
[2024-01-30 22:44] LABS: INR 1.21; PT 15.4 Sec (11.4-14.6)
[2024-01-30 22:45] LABS: APTT 33.7 Sec (23.4-35.0); Fibrinogen 375 MG/DL (199-459)
[2024-01-30 22:47] LABS: Vancomycin Trough 10.3 ug/ml (5-20)
[2024-01-30] MEDS: NSS IV (23:48)
[2024-01-31] VITALS (29 sets, daily range): BP systolic 82–138; BP diastolic 43–80; PULSE 2–109; BMI 40.0
--- NOTE | 2024-01-31 | PTCARENOTE ---
UOP continues to be quite elevated. CT PA provided further orders to adjust bumex rate to 0.5
[2024-01-31 00:12] LABS: Glucose - Point of Care 96 mg/dl (70-99)
[2024-01-31 00:46] LABS: Blood Urea Nitrogen 19 mg/dl (7-17); Calcium 8.2 mg/dl (8.4-10.2); Carbon Dioxide 33 mmol/L (22-30); Chloride 108 mmol/L (98-107); Estimated Creatinine Clearance 85 ml/min; Glucose 106 mg/dl (70-99); Potassium 3.6 mmol/L (3.5-5.1); Sodium 142 mmol/L (135-145); eGFR > 60.00
[2024-01-31] MEDS: SUBLIMAZE 100 IV (02:08)
--- NOTE | 2024-01-31 02:20 | PTCARENOTE ---
UOP remains high. Orders received to adjust bumex rate to 0.25
[2024-01-31 02:25] LABS: Glucose - Point of Care 137 mg/dl (70-99)
[2024-01-31] MEDS: DOBUTREX 500 MG 250 IV (02:26)
[2024-01-31] MEDS: NOVOLIN R INSULIN INFUSION 100 IV (02:28)
[2024-01-31] MEDS: BUMEX 50 IV ×3 (02:29→17:54)
--- NOTE | 2024-01-31 02:45 | PTCARENOTE ---
Patient with hypotensive episode at this time. SBP dropped to low 60s lowest MAP 48. Levo back on @ 4 BP improved. Patient noted to have some runs of ventricular bigeminiy following hypotensive episode. No s/s of bleeding. CT PA notified. Advised
administration of 250 albumin. All other VSS.
[2024-01-31] MEDS: ALBUMIN 5% 250 IV ×2 (02:46→10:11)
[2024-01-31 04:01] LABS: Glucose - Point of Care 73 mg/dl (70-99)
[2024-01-31] MEDS: VERSED 1 MG IV ×3 (04:13→09:56)
--- NOTE | 2024-01-31 04:40 | PTCARENOTE ---
Levo off for SBP>140
[2024-01-31 05:06] LABS: Glucose - Point of Care 113 mg/dl (70-99)
[2024-01-31 05:34] LABS: B.E. 11.2 mmol/L; HCO3 33.6 mmol/L (21-28); O2 Saturation % 97.9 % (94-98); PCO2 35 mmHg (32-35); PO2 85 mmHg (83-108); pH 7.59 (7.35-7.45)
[2024-01-31 05:35] LABS: Hematocrit 26.7 % (37.0-47.0); Hemoglobin 9.6 g/dL (12.0-16.0); Mean Corpuscular Hgb 30.3 pg (27.0-31.0); Mean Corpuscular Volume 84.2 fL (81.0-99.0); Mean Platelet Volume 10.9 fL (7.4-10.4); Platelet Count 80 10^3/uL (130-400); Red Blood Cell Count 3.17 10^6/uL (4.20-5.40); Red Cell Dist. Width 14.8 % (11.5-14.5)
[2024-01-31] MEDS: DILAUDID 0.5 MG IV ×2 (05:38→09:56)
[2024-01-31 05:42] LABS: Lactic Acid 1.1 mmol/L (0.7-2.0)
[2024-01-31 05:55] LABS: ALT (SGPT) 17 U/L (0-35); AST (SGOT) 76 U/L (14-36); Albumin 3.1 g/dl (3.5-5.0); Alkaline Phosphatase 46 U/L (38-126); Blood Urea Nitrogen 19 mg/dl (7-17); Calcium 8.4 mg/dl (8.4-10.2); Carbon Dioxide 31 mmol/L (22-30); Chloride 106 mmol/L (98-107); Direct Bilirubin 0.2 mg/dl (0.0-0.4); Estimated Creatinine Clearance 74 ml/min; Glucose 109 mg/dl (70-99); Magnesium 2.1 mg/dl (1.6-2.3); Potassium 3.9 mmol/L (3.5-5.1); Sodium 144 mmol/L (135-145); Total Bilirubin 1.6 mg/dl (0.2-1.3); Total Protein 4.9 g/dl (6.3-8.2); eGFR > 60.00
--- NOTE | 2024-01-31 06:15 | W.PN.CT ---
Today's Communication / Plan
-
POD #2
- hemodynamically stable on - thermo's unreliable, likely 2/2 significant volume reduction overnight. [place] CI is good
- IABP removed yesterday successfully
- planned for chest closure today 01/30
- precedex/fentanyl for sedation
- followed commands & LOVING during sedation vacation 01/29 & overnight
- coagulopathy improved
- hgb 9.6, plt 80 today
- CT output Ant med 150/400 in 12/24hr, med 30/70 in 12/24hr, pleurals 20/90 in 12/24hr
- bumex gtt on per surgeon overnight to optimize fluid status prior to chest closure. Patient uop robust with that -> bumex gtt now off
- Cr 0.8 , UOP 5205/6525 ml in 12/24hr
- family updated & expressed understanding. all questions were answered
- t/c vent weaning after chest closure
Assessment / Plan
-
- s/p Emergency repair of ATAAD w/ #23 Bio-bentall, ligation of LM and RM ostia, CABG x 3 (PRINCESS to LAD, GSV to OM, GSV to PDA); DHCA w/ ACP, Open chest for ongoing coagulopathy 01/29/[address] Carroll - POD #2
-s/p R femoral IABP removal & arterial repair of common femoral artery via cutdown & L femoral IABP insertion 01/29/[address] Alarcon
- CAD s/p aborted PCI c/b LM dissection extending retrograde to Type A dissection - now s/p Bentall with hemiarch replacement, cabg x3 01/29/24
- hemorrhagic shock c/b coagulopathy
- AF s/p cryo ablation 2015
- HTN
- HLD
- obesity
- hyperparathyroidism s/p parathyroidectomy
- spinal stenosis
- osteoporosis
- multiple tendon repairs
Discussed patient care with: Care Team
Subjective
Procedure
s/p Emergency repair of ATAAD w/ #23 Bio-bentall, ligation of LM and RM ostia, CABG x 3 (PRINCESS to LAD, GSV to OM, GSV to PDA); DHCA w/ ACP, Open chest for ongoing coagulopathy on 01/29/[address] Carroll
-
Date of Service: January 31, 2024
Objective Data
-
Lab Results
01/30/24 17:57
01/30/24 17:57
PT 12.8 Sec (11.4-14.6) 01/30/24 05:50
INR 0.98 01/30/24 05:50
APTT 33.5 Sec (23.4-35.0) 01/30/24 05:50
Vital Signs
Vital Signs
Temp Pulse Resp BP Pulse Ox
97.5 F 78 18 128/69 98
01/30/24 19:27 01/30/24 19:27 01/30/24 19:27 01/30/24 19:27 01/30/24 19:10
CT Intake/Output/Weight
01/30/24 01/30/24 01/31/24
06:59 18:59 06:59
Intake Total 2152.6 / 2266.6 2251.1 / 2580.9 329.8 / 2580.9
Output Total 1974 1680 / 1830 150 / 1830
Balance 177.6 / 226.6 571.1 / 750.9 179.8 / 750.9
SaO2: 98
Physical Exam
-
General: Other (sedated. followed commands, LOVING during sedation vacation 01/30/24)
Cardiovascular: Regular rate & rhythm
Respiratory: Clear and Equal
Sternum: Stable
Incision: Dressing Intact
Extremities: Edema +1
Data Reviewed
-
Lab Results: Results Reviewed
Medications: Active Meds Reviewed
Chest X-Ray: Image Reviewed
Vital Signs / Labs
-
Vital Signs and Labs:
Temp Pulse Resp BP Pulse Ox
96.9 F L 101 16 122/63 95
01/31/24 06:00 01/31/24 06:00 01/31/24 06:00 01/31/24 06:00 01/31/24 06:00
01/31/24 05:18
01/31/24 05:18
01/29/24 01/29/24 01/29/24
10:10 14:06 14:59
WBC
RBC
Hgb
Hct
MCHC
RDW
Plt Count
MPV
PT
pH
pCO2
pO2
HCO3
ABG O2 Sat (Measured)
Sodium
Chloride
Carbon Dioxide
BUN
Glucose
Lactic Acid
Calcium
Total Bilirubin
Direct Bilirubin
AST
Alkaline Phosphatase
Total Protein
Albumin
POC Glucose
POC ACT+ > 1003 H > 1003 H
Crossmatch IS Only See Detail
Crossmatch (Massive Bleed) See Detail
01/29/24 01/29/24 01/29/24
15:48 16:33 17:51
WBC
RBC
Hgb
Hct
MCHC
RDW
Plt Count
MPV
PT
pH
pCO2
pO2
HCO3
ABG O2 Sat (Measured)
Sodium
Chloride
Carbon Dioxide
BUN
Glucose
Lactic Acid
Calcium
Total Bilirubin
Direct Bilirubin
AST
Alkaline Phosphatase
Total Protein
Albumin
POC Glucose
POC ACT+ > 1003 H > 1003 H > 1003 H
Crossmatch IS Only
Crossmatch (Massive Bleed)
01/29/24 01/29/24 01/30/24
18:18 18:47 05:50
WBC
RBC
Hgb 8.8 L
Hct
MCHC
RDW
Plt Count
MPV
PT
pH
pCO2
pO2
HCO3
ABG O2 Sat (Measured)
Sodium
Chloride
Carbon Dioxide
BUN
Glucose
Lactic Acid 8.4 H*
Calcium
Total Bilirubin 2.0 H
Direct Bilirubin 0.5 H
AST 80 H
Alkaline Phosphatase 31 L
Total Protein 4.8 L
Albumin 3.3 L
POC Glucose
POC ACT+ > 1003 H > 1003 H
Crossmatch IS Only
Crossmatch (Massive Bleed)
01/30/24 01/30/24 01/30/24
06:02 07:12 08:04
WBC
RBC
Hgb
Hct
MCHC
RDW
Plt Count
MPV
PT
pH
pCO2
pO2
HCO3
ABG O2 Sat (Measured)
Sodium
Chloride
Carbon Dioxide
BUN
Glucose
Lactic Acid
Calcium
Total Bilirubin
Direct Bilirubin
AST
Alkaline Phosphatase
Total Protein
Albumin
POC Glucose 137 H 175 H 172 H
POC ACT+
Crossmatch IS Only
Crossmatch (Massive Bleed)
01/30/24 01/30/24 01/30/24
08:36 09:01 09:58
WBC
RBC
Hgb
Hct
MCHC
RDW
Plt Count
MPV
PT
pH
pCO2
pO2
HCO3
ABG O2 Sat (Measured)
Sodium
Chloride
Carbon Dioxide
BUN
Glucose
Lactic Acid
Calcium
Total Bilirubin
Direct Bilirubin
AST
Alkaline Phosphatase
Total Protein
Albumin
POC Glucose 154 H 132 H
POC ACT+
Crossmatch IS Only See Detail
Crossmatch (Massive Bleed)
01/30/24 01/30/24 01/30/24
10:58 11:53 13:58
WBC
RBC 2.68 L
Hgb 8.3 L
Hct 23.0 L
MCHC
RDW 15.1 H
Plt Count 58 L D
MPV
PT
pH
pCO2 43 H
pO2 143 H
HCO3 29.9 H
ABG O2 Sat (Measured) 98.2 H
Sodium 149 H
Chloride 113 H
Carbon Dioxide 33 H
BUN
Glucose 114 H
Lactic Acid 4.2 H*
Calcium
Total Bilirubin
Direct Bilirubin
AST
Alkaline Phosphatase
Total Protein
Albumin
POC Glucose 100 H 116 H
POC ACT+
Crossmatch IS Only
Crossmatch (Massive Bleed)
01/30/24 01/30/24 01/30/24
17:02 17:57 19:08
WBC 10.9 H
RBC 2.35 L
Hgb 7.1 L
Hct 19.3 L*
MCHC
RDW 15.4 H
Plt Count 94 L D
MPV
PT
pH
pCO2
pO2
HCO3
ABG O2 Sat (Measured)
Sodium
Chloride 110 H
Carbon Dioxide 33 H
BUN 18 H
Glucose
Lactic Acid 2.3 H
Calcium 8.3 L
Total Bilirubin
Direct Bilirubin
AST
Alkaline Phosphatase
Total Protein
Albumin
POC Glucose 109 H 117 H
POC ACT+
Crossmatch IS Only
Crossmatch (Massive Bleed)
01/30/24 01/30/24 01/30/24
22:06 22:24 22:25
WBC 12.0 H
RBC 3.62 L
Hgb 11.0 L D
Hct 29.5 L
MCHC 37.3 H
RDW 15.0 H
Plt Count 88 L
MPV
PT 15.4 H
pH 7.58 H
pCO2 37 H
pO2
HCO3 34.7 H
ABG O2 Sat (Measured)
Sodium
Chloride
Carbon Dioxide
BUN
Glucose
Lactic Acid
Calcium
Total Bilirubin
Direct Bilirubin
AST
Alkaline Phosphatase
Total Protein
Albumin
POC Glucose 148 H
POC ACT+
Crossmatch IS Only
Crossmatch (Massive Bleed)
01/31/24 01/31/24 01/31/24
00:21 02:23 05:02
WBC
RBC
Hgb
Hct
MCHC
RDW
Plt Count
MPV
PT
pH
pCO2
pO2
HCO3
ABG O2 Sat (Measured)
Sodium
Chloride 108 H
Carbon Dioxide 33 H
BUN 19 H
Glucose 106 H
Lactic Acid
Calcium 8.2 L
Total Bilirubin
Direct Bilirubin
AST
Alkaline Phosphatase
Total Protein
Albumin
POC Glucose 137 H 113 H
POC ACT+
Crossmatch IS Only
Crossmatch (Massive Bleed)
01/31/24 01/31/24
05:18 05:19
WBC 12.0 H
RBC 3.17 L
Hgb 9.6 L
Hct 26.7 L
MCHC
RDW 14.8 H
Plt Count 80 L
MPV 10.9 H
PT
pH 7.59 H
pCO2
pO2
HCO3 33.6 H
ABG O2 Sat (Measured)
Sodium
Chloride
Carbon Dioxide 31 H
BUN 19 H
Glucose 109 H
Lactic Acid
Calcium
Total Bilirubin 1.6 H
Direct Bilirubin
AST 76 H
Alkaline Phosphatase
Total Protein 4.9 L
Albumin 3.1 L
POC Glucose
POC ACT+
Crossmatch IS Only
Crossmatch (Massive Bleed)
[2024-01-31 06:20] LABS: Glucose - Point of Care 99 mg/dl (70-99)
[2024-01-31] MEDS: ANCEF 5 IV ×2 (06:20→22:00)
[2024-01-31] MEDS: FLEXBUMIN 50 IV ×3 (06:20→21:58)
[2024-01-31] MEDS: BACTROBAN 2% OINTMENT 1 APPLIC NASAL ×3 (06:21→21:08)
[2024-01-31] MEDS: TYLENOL PO ×3 (06:22→21:44)
--- NOTE | 2024-01-31 06:35 | PTCARENOTE ---
Dobut tapered down to [address] PA[address] Bumex gtt off. Pre op hygiene care provided. VSS.
[2024-01-31 07:05] LABS: Glucose - Point of Care 101 mg/dl (70-99)
[2024-01-31] MEDS: PRECEDEX 100 IV ×3 (07:06→11:11)
--- NOTE | 2024-01-31 07:30 | PTCARENOTE ---
Resumed care of patient. Walking rounds completed with previous RN. Pt assessed while she was lying in bed. Pt sedated on precedex and fentanyl gtts. RASS -3. Opens eyes to stimulation but does not follow commands. Intubated with 8.0 ETT 22cm at the
lip. POX 95%. SIMV 40% 16 5 500. Lungs clear anteriorly. Mediastinal x2 chest tubes y-sited to 1 atrium to -20cm suction draining scant serosanguineous drainage. Right and left pleural chest tubes y-sited to 1 atrium to -20cm suction draining scant
amounts serosanguineous fluid. NGT to wall suction to open chest draining small amount of red fluid. NSR on tele. BP stable. Dobutamine @3. CI 2.09. PA pressures 20s/10s, CVP 11. Bilateral radial and DP pulses weakly palpable. Generalized +1 edema
noted. Epicardial v-wire to back up 50/8/1, no spikes noted. Abdomen soft, round, obese, nontender. Hypoactive BS. Yap catheter intact draining adequate amounts of clear yellow urine. Sternum open with ioban dressing intact. Chest tube sites
covered, dressing CDI. Right groin site with aquacel intact. Left groin site with 4x4 intact. Ecchymosis noted to inner thigh. Left SVG harvest site with Aquacel intact. Right IJ cordis and swan floated to 47cm. Left radial baron intact. All lines
flushed, leveled, zeroed. Left wrist 20g PIV intact infusing insulin gtt per critical care glycemic protocol. See MAR for medication administration. See worklist for complete nursing assessment.
[2024-01-31] MEDS: LIDOCAINE 4% PATCH TOPICAL (07:36)
[2024-01-31] MEDS: CRESTOR PO (07:36)
[2024-01-31] MEDS: MAGNESIUM OXIDE PO ×2 (07:36→21:07)
[2024-01-31] MEDS: PROTONIX PO (07:37)
[2024-01-31] MEDS: PACERONE PO ×3 (07:37→21:44)
[2024-01-31] MEDS: SENOKOT-S PO ×2 (07:37→21:07)
--- NOTE | 2024-01-31 07:55 | PTCARENOTE ---
Pt taken to CVOR with CT PA, CVOR RN, and MALTER OPERATOR. Per anesthesia, fentanyl gtt and insulin gtt removed at this time.
--- NOTE | 2024-01-31 09:13 | W.PN.INTV ---
Today's Communication / Plan
Recommendations
SAT/SBT and extubate if possible
Maintain net negative fluid as tolerated given elevated PADP/PCWP seen at bedside Hoffman
Pain control
Maintain MAP>65
prn duonebs
Assessment
-
Assessment: 73-year-old F with a PMHx of A-fib s/p cryoablation (2015), hypothyroidism, hypertension, hyperlipidemia, spinal stenosis and asthma who initially presented with worsening angina and left heart catheterization. [facility] performed on
01/29/2024 and there was great difficulty in advancing equipment to predilate the lesion. Patient unfortunately developed an LAD dissection, and patient had an intra-aortic balloon pump placed by vascular surgery for hemodynamic support.
Cardiothoracic surgery consulted, and patient went to the OR where initial [place] showed moderate�severe AI with flap of type a aortic dissection visible in the ascending aorta and proximal arch. There also was extensive dissection involving the
entire aortic root. On 01/28/2023, patient underwent emergency repair of her type a dissection, ligation of LM and RM ostia, CABG x 3 with deep hypothermic circulatory arrest and antegrade cerebral perfusion. At the procedures end, pt with open
chest due to ongoing coagulopathy and open chest dressing was placed. Patient required multiple blood transfusions including 10 units PRBC, 4 units platelets, 8 units FFP, and 9 mg of factor VIIa. There were no immediate complications
postoperatively, and patient was transferred to the CVICU for further care with critical care services consulted for additional management/recommendations.
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
Impression:
#CAD s/p C c/b ATAAD involving LM/RM/aortic root and extending to proximal aortic arch s/p repair with Bio-Bentall, ligation of LM/RM ostia and CABG x3 (POD#2)
#Coagulopathy
#Open chest s/p chest closure (POD#0)
#Ventilator dependent respiratory failure
#Lactic acidosis - resolved
#Hypernatremia - resolved
#Anemia - stable
#Transaminitis - improving
Plan:
Ventilator settings reviewed --> patient is now being awakened with plans to extubate
FiO2 will be weaned to maintain SpO2 >94%
Minute ventilation will be adjusted
Arterial blood gases will be monitored
Spontaneous breathing trial will be attempted with hopeful extubation after anesthesia/sedation wear off
prn nebulized bronchodilators
Pulmonary artery catheter parameters will be followed
Pressors/antihypertensive/inotropes/diuretics will be provided as needed
Maintain MAP>65
Replete electrolytes with K>4, Mg>2
Monitor chest tube output (L+R pleural chest tubes + mediastinal chest tubes x2)
Monitor hemoglobin
Monitor platelet count and coags
Transfuse blood product if needed to keep Hb>8g/dL and plt>50k
CT surgery managing chest tubes
Monitor blood sugar with goal BG 140-180mg/dL
Insulin supplementation as needed
Aspiration precautions
VAP prevention protocol
DVT prophylaxis
Early nutrition
Early mobilization
Critical care statement: A total of 41 minutes of critical care time was provided for this patient today. This includes management of ventilator, spontaneous breathing trial, arterial blood gases, pressors, of unstable vital signs, evaluation of the
patient at bedside, reviewing the patient's pertinent medical records including radiographs, microbiology, laboratory evaluations, and discussion with primary team and critical care nursing.
Data:
CXR 01-31-2024: Endotracheal tube and right internal jugular Hoffman-Phillip catheter remain in place. No pneumothorax identified. The cardiomediastinal margins are stable. No evidence to suggest congestive heart failure. Minor atelectasis in the medial
left lung base.
CXR 01-30-2024: Postoperative changes; No pneumothorax
Subjective Dataa
Subjective Data
Date of Service:
Date of Service: January 31, 2024
Chief Complaint: Relay Worker Follow Up
Subjective:
Patient seen this morning. Remains intubated on SIMV 16/500/40%/5, with PIP 24 cmH2O, breathing at 16 breaths/min and VTe 470 mL. She was raised from PS of 5 to 8. She is on Levophed at 8mcg/min, on Bumex at 1mg/hr, amio at 1mg/min and dobutamine
at 2mcg/kg/min. Current vitals are: HR: 112, BP via left radial A-line 100/61, PAP 37/22, SpO2 98%. She has 4 chest tubes including a left & right pleural chest tube and mediastinal chest tubes x 2. She was just removed from fentanyl drip
(150mcg/hr) and weaned off precedex in attempts to extubate.
Review of Systems
General: Unobtainable - Sedation
Objective Data
Data Reviewed
Vital Signs / I&O / Oxygen:
Vital Signs
Temp Pulse Resp BP Pulse Ox
96.4 F L 95 40 110/63 100
01/31/24 07:00 01/31/24 07:55 01/31/24 07:55 01/31/24 07:00 01/31/24 07:55
Intake and Output
01/30/24 01/31/24 02/01/24
06:59 06:59 06:59
Intake Total 2152.6 / 2266.6 4748.3 / 4843.5 95.2 / 95.2
Output Total 1974 7690 / 8000 310 / 310
Balance 177.6 / 226.6 -2941.7 / -3156.5 -214.8 / -214.8
SaO2 [SIMV] 97
SaO2 100
Physical Exam
General: Respiratory Distress (negative) and Comfortable
HEENT: Normocephalic and Anicteric
Cardiovascular: S1-S2, Peripheral Edema (negative) and Other (Tachycardic)
Respiratory: Wheeze (negative), Crackles (negative), Rhonchi (negative), Non-Labored Respirations (negative), ET Tube, Chest Tube (x4 (left and right pleural and mediastinal x2)) and Other (Mechanical breath sounds heard bilaterally)
GI: Soft, Non Distended and Non Tender
Neurology: Tremors (negative) and Lethargic
Skin: Warm and Dry
Labs/Micro/Reports
Laboratory Results
01/30/24 01/30/24 01/30/24
10:58 22:24 22:25
PT 15.4 H
INR 1.21
APTT 33.7
pH 7.45 7.58 H
pCO2 43 H 37 H
pO2 143 H 87
HCO3 29.9 H 34.7 H
O2 Delivery Level
01/31/24
05:19
PT
INR
APTT
pH 7.59 H
pCO2 35
pO2 85
HCO3 33.6 H
O2 Delivery Level
--- NOTE | 2024-01-31 09:30 | PTCARENOTE ---
Received pt from [facility] at 0930 s/p sternal closure. Pt intubated and sedated on precedex gtt. Pt unresponsive. PERRLA 2mm, reactive. POX 99%. 8.0 ETT 22 at the lip. SIMV 40% 16 5 500. Lungs clear b/l anteriorly. Right and left pleural chest tubes
y-sited to 1 atrium to -20cm suction draining red fluid. Mediastinal x2 chest tubes y-sited to 1 atrium to -20cm suction draining red fluid. No air leaks, tidaling, crepitus noted. Afib on tele with rates 110s-130s. BP labile, CT SENIOR MARKETING DATA ANALYST at bedside. CI
2.31, pA pressures 30s/20s. CVP 12. Epicardial v-wire to temp pacer box-turned off d/t inappropriate pacing spikes. Heart tones audible. Bilateral radial and DP pulses weakly palpable. Generalized +1 edema. Abdomen soft, obese, round, nontender.
Hypoactive BS. Yap catheter intact draining adequate amounts of clear yellow urine. Sternal incision approximated with SHILO dressing CDI. Chest tube dressing CDI. Right groin incision covered with Aquacel-CDI. Left groin puncture sites SINGLE PASS SOIL STABILIZER OPERATOR. Left
SVG harvest covered with Aquacel-CDI. Right IJ cordis and swan floated to 47cm. Left radial baron intact. All lines flushed, leveled, and zeroed. left wrist 20g PIV intact infusing insulin gtt per critical care glycemic protocol. See MAR for
medication administration. See worklist for complete nursing assessment. Post-op labs, EKG, and CXR completed.
[2024-01-31 09:40] LABS: Glucose - Point of Care 168 mg/dl (70-99)
--- NOTE | 2024-01-31 09:45 | PTCARENOTE ---
1unit platelets infusing per order.
--- NOTE | 2024-01-31 09:47 | W.PN.CT.SURG ---
CT Surgery Operative Note
-
CARDIAC SURGERY OPERATIVE REPORT
Preoperative Diagnosis: Open chest
Postoperative Diagnosis: Same
Procedure(s) Performed:
1. Unpacking of 2 Kerlix rolls and 2 vaginal packings
2. Washed out with antibiotic solution
3. Chest closure with superficial skin wound VAC placement over the incision
Date of Surgery: 01/31/2024
Comorbidities:
1. 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
2. Moderate aortic valve insufficiency
3. Atrial fibrillation
4. CAD
5. Hypertension
6. Hyperlipidemia
7. Hypothyroidism
8. Emergent cardiac surgery, requiring intra-aortic balloon pump
9. Status post cutdown of the right common femoral artery and repair with relocation of intra-aortic balloon to left common femoral artery
Attending Surgeon: Umang Myles MD, MS
Assistants: Umang Hi PA-C (present and necessary to special education teaching assistant, retraction, suction, exposure, suture management, and wound closure under my direction)
Anesthesiology: Nacho Tyler MD and Sanket Izaguirre CRNA
Scrub and Circulating RNs: Caro Hebert, RN, Denise Carlos RN
Restaurant General Manager: Jay Gold CCP
Anesthesia: GETA
EBL: per perfusion records
Products: 1 pool of plts in CVICU
Indication(s) for Procedures: This is a 73-year-old female who was taken to the operating room emergently for a bio Bentall with ligation of both coronary ostia and bypasses performed to LAD, circumflex, and RPDA. Due to postoperative bleeding, and
requirement for multiple blood product transfusions, she was left packed and chest open in the ICU. She was aggressively diuresed yesterday (6.5L) and was able to come off of intra-aortic balloon pump as well as inotropic support. She is brought
back today for planned chest washout and closure.
Findings: A total of 2 Kerlix rolls and 2 vaginal packings were removed from the chest. An intraoperative chest x-ray was performed and found to have no retained objects. There was good hemostasis along all suture lines. The proximal suture line
at the root was not disturbed, fibrillar and packing hemostatic agents were left in place. Additional fibrillar was placed around the suture lines. All grafts were visualized and appeared to have a good lie free from kinking or twisting. At time
of operation she only required 3 of dobutamine for support and was able to come off of Levophed. Her platelet count was low the morning of surgery as anticipated given all the graft material, she will be given a pack of platelets on return to the
CVICU. All chest tubes were irrigated to be free of any thrombus or debris and reused.
Description of Procedure: The patient was taken to the operating room. Their identity and procedure to be performed were verified and they were positioned supine on the operating table. She was already endotracheally intubated and had the
appropriate monitoring lines. The patient was then prepped and draped from chin to thighs in a sterile fashion. A preoperative time-out was performed with all members of the team present. In total she had bilateral pleural chest drains, and 2
mediastinal drains -all of these were stripped and irrigated to remove any clot in the tubing, new pleural vacs were attached. All suture lines were thoroughly inspected. All coronary bypass grafts were inspected and found to be free of any
kinking or twisting with appropriate lie. Additional fibrillar was placed around the suture lines to ensure hemostasis. The sternum was approximated with eight #7 stainless steel wires. Fascia was approximated with #1 vicryl suture. The
subcutaneous, dermis and epidermis were closed in layers in a running fashion. The skin wound was cleansed and dressed. Additional skin VAC was placed over top of the skin incision closure. An intraoperative chest x-ray was performed after removal
of all foreign bodies, no retained objects were found
All instrument, sponge, and needle counts were confirmed to be correct x 2 at the end of the operation. The patient was transferred to the cardiac intensive care unit in critical but stable condition.
I, Dr. Umang Myles, was present, scrubbed for, and performed all critical elements of this procedure.
Umang Myles MD, MS
Cardiothoracic Surgeon
[facility]
This operative dictation was created using the [employer] dictation system. Please excuse any grammatical, typographical, or 'sound alike' errors
[2024-01-31 09:51] LABS: Hematocrit 24.2 % (37.0-47.0); Hemoglobin 8.8 g/dL (12.0-16.0); Mean Corp Hgb Conc. 36.4 g/dL (33.0-37.0); Mean Corpuscular Hgb 30.2 pg (27.0-31.0); Mean Corpuscular Volume 83.2 fL (81.0-99.0); Mean Platelet Volume 10.7 fL (7.4-10.4); Platelet Count 70 10^3/uL (130-400); Red Blood Cell Count 2.91 10^6/uL (4.20-5.40); Red Cell Dist. Width 15.4 % (11.5-14.5); White Blood Cell Count 11.9 10^3/uL (4.8-10.8)
[2024-01-31 09:52] LABS: B.E. 8.6 mmol/L; HCO3 31.5 mmol/L (21-28); O2 Saturation % 98.2 % (94-98); PCO2 36 mmHg (32-35); PO2 121 mmHg (83-108); pH 7.55 (7.35-7.45)
[2024-01-31 09:55] LABS: Mixed Venous O2 Saturation 68.6 %
[2024-01-31 10:06] LABS: Blood Urea Nitrogen 20 mg/dl (7-17); Estimated Creatinine Clearance 73 ml/min; Glucose 148 mg/dl (70-99); Lactic Acid 1.1 mmol/L (0.7-2.0); eGFR > 60.00
[2024-01-31 10:07] LABS: Alkaline Phosphatase 48 U/L (38-126); Carbon Dioxide 32 mmol/L (22-30); Chloride 106 mmol/L (98-107); Phosphorus 4.9 mg/dl (2.5-4.5); Potassium 3.9 mmol/L (3.5-5.1); Sodium 142 mmol/L (135-145); Total Protein 4.7 g/dl (6.3-8.2)
[2024-01-31 10:08] LABS: ALT (SGPT) 18 U/L (0-35); AST (SGOT) 69 U/L (14-36); Magnesium 1.9 mg/dl (1.6-2.3); Total Bilirubin 1.4 mg/dl (0.2-1.3)
[2024-01-31] MEDS: CORDARONE 518 MG IV (10:11)
[2024-01-31] MEDS: CORDARONE 103 MG IV ×2 (10:11→13:13)
--- NOTE | 2024-01-31 10:24 | W.PN.CD ---
Today's Communication / Plan
-
IV amiodarone for A fib with RVR
Impression / Plan
-
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
-Emergency repair (#23 bio Anabelle), ligation of LM/R and ostia, CABG x 3 (PRINCESS�LAD, GSV�OM, GSV�PDA) on 01/29/[address] Carroll
-chest left open 01/28; then closed 01/30 AM, and currently intubated
-Case complicated by coagulopathy which is improving
-weaning drips
Paroxysmal atrial fibrillation--now with post op A fib with RVR
-Cryoablation in 2016
-[id number] score at least 3 (vascular disease, female gender, age 73)
-not currently on OAC with complex surgery and coagulopathy
-IV amiodarone
Hypertension, now hypotensive, all agents on hold with vasopressor support
HLD, goal LDL <55, resume rosuvastatin when able
Hypothyroidism on levothyroxine
CCT 35 minutes
Physical Exam
Vital Signs/Labs
Vital Signs
Temp Pulse Resp BP Pulse Ox
96.4 F L 95 40 110/63 100
01/31/24 07:00 01/31/24 07:55 01/31/24 07:55 01/31/24 07:00 01/31/24 07:55
01/30/24 01/31/24 02/01/24
06:59 06:59 06:59
Actual Weight 109.1 kg 105.6 kg
01/31/24 09:38
PT 15.4 Sec (11.4-14.6) H 01/30/24 22:25
INR 1.21 01/30/24 22:25
APTT 33.7 Sec (23.4-35.0) 01/30/24 22:25
Magnesium 1.9 mg/dl (1.6-2.3) 01/31/24 09:38
LAB Results
01/29/24
10:10
Troponin I < 0.012
Physical Exam
Constitutional: Other (intubated/sedated)
EENT: Moist mucous membranes
Cardiovascular: Systolic murmur absent, Rhythm/rate is irregular and Pedal edema present
Respiratory: Other (mechanical ventilation)
Neuro/Psych: Other (sedated)
Data Reviewed
-
Date of Service: January 31, 2024
EKG: Other (Tele: A fib 110s)
Labs: Labs Reviewed by me
Critical Care Time (in minutes): 35
[2024-01-31] MEDS: MAGNESIUM SULFATE 50 IV (10:29)
[2024-01-31] MEDS: KCL 50 IV ×4 (10:30→17:06)
[2024-01-31 10:33] LABS: Ionized Calcium 1.09 mMOL/L (1.15-1.33)
--- NOTE | 2024-01-31 10:40 | PTCARENOTE ---
1unit platelets infusing per order
[2024-01-31 10:45] LABS: INR 1.31; PT 16.3 Sec (11.4-14.6)
[2024-01-31 10:46] LABS: APTT 37.1 Sec (23.4-35.0); Fibrinogen 397 MG/DL (199-459)
[2024-01-31] MEDS: ANCEF 10 IV ×2 (10:46)
[2024-01-31] MEDS: DIAMOX 5 MG IV (10:51)
[2024-01-31 11:09] LABS: Glucose - Point of Care 162 mg/dl (70-99)
[2024-01-31] MEDS: CALCIUM CHLORIDE 10% SYRINGE 50 ML IV (11:30)
[2024-01-31] MEDS: CALCIUM CHLORIDE 10% SYRINGE 50 MG IV (11:30)
[2024-01-31 11:58] LABS: Glucose - Point of Care 155 mg/dl (70-99)
--- NOTE | 2024-01-31 12:00 | PTCARENOTE ---
Pt reassessed. Remains intubated and sedated. Pt occasionally opens her eyes to voice and follows commands to squeeze right hand and then quickly falls back asleep. Afib on tele with rates in the 110s. BP supported with levophed gtt. CI 2.25. PA
pressures 30s/10s. CVP 18. Bilateral radial and DP pulses weakly palpable. POX 99%. SIMV 40% [address] output WNL. UO adequate. Surgical sites stable. All lines remain intact.
[2024-01-31] MEDS: LEVOPHED 250 IV ×2 (12:15→17:48)
--- NOTE | 2024-01-31 12:30 | PTCARENOTE ---
Pt awakens, follows more commands to squeeze hands, wiggle toes, and shake head yes/no. Pt over breathing vent more, RT notified. Attempted cpap trial, but pt was apneic. Placed back on SIMV settings by RT. POX 98%.
[2024-01-31] MEDS: VANCOCIN 200 IV (12:32)
[2024-01-31 13:14] LABS: Glucose - Point of Care 189 mg/dl (70-99)
[2024-01-31 13:17] LABS: B.E. 9.1 mmol/L; HCO3 32.6 mmol/L (21-28); Ionized Calcium 1.25 mMOL/L (1.15-1.33); O2 Saturation % 98.7 % (94-98); PCO2 39 mmHg (32-35); PO2 133 mmHg (83-108); Potassium 3.6 mMOL/L (3.5-5.1); pH 7.53 (7.35-7.45)
[2024-01-31 13:20] LABS: Hematocrit 22.3 % (37.0-47.0); Platelet Count 115 10^3/uL (130-400)
[2024-01-31 13:22] LABS: Mixed Venous O2 Saturation 67.4 %
--- NOTE | 2024-01-31 13:49 | PTCARENOTE ---
1 unit PRBC infusing
[2024-01-31 13:57] LABS: Glucose - Point of Care 194 mg/dl (70-99)
--- NOTE | 2024-01-31 14:10 | PTCARENOTE ---
RT at bedside to try cpap trial. Pt tolerating. POX 98%.
[2024-01-31 14:13] LABS: Blood Urea Nitrogen 18 mg/dl (7-17); Carbon Dioxide 32 mmol/L (22-30); Chloride 104 mmol/L (98-107); Estimated Creatinine Clearance 65 ml/min; Glucose 185 mg/dl (70-99); Potassium 3.6 mmol/L (3.5-5.1); Sodium 139 mmol/L (135-145); eGFR > 60.00
--- NOTE | 2024-01-31 14:35 | PTCARENOTE ---
Pt apneic on cpap, switched back to SIMV settings
--- NOTE | 2024-01-31 14:41 | CM ---
Addendum entered by TITUS Arteaga 01/31/24 15:55:
Met w/ patient's son, Lex at bedside. He recently moved back to the area. He will be staying w/ patient and spouse temporarily while she recovers and while he settles at a permanent location.
He confirms that patient is indep. at baseline. Spouse is less so, requires a SPC.
Goal is for DC to home once stable. Will need to monitor progress and needs.
Will cont. to follow.
Original Note:
CM following for DC planning needs.
Patient still sedated/vented.
Will follow closely for DC planning needs.
[2024-01-31 15:02] LABS: Glucose - Point of Care 150 mg/dl (70-99)
--- NOTE | 2024-01-31 15:35 | PTCARENOTE ---
Pt bathed with CHG wipes. Pt turned from side to side, no significant dumps from chest tubes. Pt tolerated. Pt more awake, RT at bedside to place pt back on cpap trial. POX 97%, pt tolerating.
--- NOTE | 2024-01-31 15:45 | PTCARENOTE ---
CT FOOD TECHNICIAN at bedside. Pt not following commands and not withdrawaling to painful stimuli for several minutes. Pt then spontaneously woke up and lifted up b/l arms with strong strength. CT FOOD TECHNICIAN at bedside for event.
--- NOTE | 2024-01-31 16:00 | PTCARENOTE ---
CT head ordered. Pt transported with OUTSIDE SALES INSPECTOR, RT, and additional staff. Pt tolerated. Per RT, pt placed back on SIMV settings for transport.
--- NOTE | 2024-01-31 16:08 | CON.NEURO4 ---
Consultation - Neurology 4
-
CONSULTING PHYSICIAN: Germain Arriaza
REFERRING PHYSICIAN: CT surgery team
DICTATED BY: Germain Arriaza
DATE/TIME OF REQUEST: 01/31/24
DATE/TIME OF CONSULTATION: 01/31/24
Reason for Consultation: Possible seizure
History of Present Illness:
Patient is a 73-year-old woman with a past no history of atrial fibrillation, coronary artery disease who underwent cardiac catheterization on 01/28 was not successful in PTCA of the LAD due to severe calcifications and was complicated by left
anterior artery descending dissection. She had intra-aortic balloon pump placed. She had further complications of ascending type a aortic dissection with CABG and underwent operative repair of this along with repair of common femoral artery from
vascular surgery. She did have intraoperature cirulatory arrest and hypothermia.
Postoperatively the patient has been intubated and being manage medically. She has been following commands and had an episode this afternoon where she seemed to become poorly responsive and then had a short-lived bilateral type raising of the arms
without repetitive clonic activity and after couple minutes seem to come to and obey commands once again. There was no overt tonic posturing seen or unilateral features of the arms or gaze preference seen.
Patient's son reports no previous history of seizure or neurologic issues in the patient and no family history of seizures or significant alcohol use.
Past Medical History: Paroxysmal atrial fibrillation, coronary artery disease, hypertension, hyperlipidemia, hypothyroidism
Surgical History: Cardiac catheterization, aortic dissection repair, right femoral artery repair
Family History: No family history of seizure
Social History: Patient is and lives with her , adult son at the bedside, no tobacco, rare alcohol in no significant amounts
Review of Symptoms:
Unable to obtain with intubation
Physical Exam:
Middle elderly age woman intubated appears ill, ET tube in place, eyes are clear, central venous catheter in place in the IJ, heart rate regular, breathing unlabored no wheezing breath sounds present bilaterally, abdomen is obese, no lower extremity
rash, mild pitting edema bilaterally seen
Neurologic examination
Mental status examination shows an awake and alert patient who will track and obey commands consistently giving thumbs up wiggling toes and closing eyes to command consistently.
Cranial nerve examination shows pupils are 3 mm equal light bilaterally, resting gaze midline and extraocular movements are intact able to track objects throughout the room. Face is grossly symmetric.
Motor examination shows 5/5 arm flexion strength and good drywall hanger helper strength able to obey commands in both arms and legs bilaterally
Intact noxious stimulation throughout
Reflexes unobtainable to
No ataxia spontaneous arm movements bilaterally.
Unable to examine gait
Neuro Imaging: CT head noncontrast pending
Impressions
1. Possible short-lived seizure. Now obeying commands. Other possibilities would include agitation and/or encephalopathy or nonepileptic myoclonus.
2. Atrial fibrillation
3. Coronary artery disease
4. Dissection of coronary artery complicated by aortic dissection with repair as well as CABG, as well as right femoral artery repair
Recommendations:
1. Check CT head non contrast
2. As obeying commands I do not feel she would require continuous EEG monitoring, check routine EEG acceptable to wait till morning to perform this with CT head taking priority
3. Would continue Levetiracetam 1000 mg q12hr IV for now, duration will depend on if any significant findings on CT head and EEG
4. Neurologic checks
5. Follow electrolytes, normal calcium and sodium on most recent check
Will follow
Discussed patient care with: CT surgery team, patient's son at bedside
--- NOTE | 2024-01-31 16:45 | PTCARENOTE ---
CT DEVELOPMENT EDITOR at bedside. Pt not following commands and not withdrawaling to painful stimuli for several minutes. Pt then spontaneously woke up and lifted up b/l arms with strong strength. CT DEVELOPMENT EDITOR at bedside for event.
--- NOTE | 2024-01-31 17:00 | PTCARENOTE ---
Pt reassessed. RASS -1. Able to follow commands to squeeze hands, wiggle toes, and shake head no. Remains intubated POX 98%. Afib on tele with rates in the 100s. BP supported with levo gtt. CI 2.02. Dobutamine remains at 2. Amio infusing at 0.5. CT
output WNL. Adequate UO. All lines remain intact. Surgical sites stable.
[2024-01-31 17:05] LABS: Glucose - Point of Care 146 mg/dl (70-99)
[2024-01-31] MEDS: DIAMOX 2.5 MG IV (17:13)
--- NOTE | 2024-01-31 17:15 | PTCARENOTE ---
Pt placed on cpap again by RT. Pt tolerating. POX 98%.
[2024-01-31] MEDS: CARDENE 200 IV (18:10)
[2024-01-31] MEDS: KEPPRA 1000 MG IV (18:11)
[2024-01-31 18:21] LABS: B.E. 6.3 mmol/L; HCO3 31.2 mmol/L (21-28); O2 Saturation % 98.6 % (94-98); PCO2 46 mmHg (32-35); PO2 118 mmHg (83-108); pH 7.44 (7.35-7.45)
--- NOTE | 2024-01-31 18:42 | RESPNOTE ---
Patient extubated to 6 L nasal cannula following cpap trial
--- NOTE | 2024-01-31 18:44 | PTCARENOTE ---
Per Dr. Myles, extubate patient. RT at bedside to extubate. Pt tolerated. POX 99% on 6L NC. Able to state name and . Does not know where she is or the year. Reoriented. Able to squeeze hands and wiggle toes on command. Pr resting at this time.
--- NOTE | 2024-01-31 19:00 | PTCARENOTE ---
assumed care of patient @ 1900. recieved pt laying in bed, Awake and oriented x2. Forgetful to time. Voice very hoarse. LOVING, follows commands appropriately, however ocasionally does not follow commands and says 'no'. Very drowsy, sleeps when
undisturbed . AFIB on tele 100-110s. Weak pulses all around, + 1 generalized edema. Map ~ 70, PAP 30s/10s, CVP ~10. V wire hooked to box, turned off. Lungs clear, diminished on 6L NC satting mid 90s. Refused to work with IS, will try again. CT x4 to
wall suction no air leak, tidaling or crepitus noted. Belly obese, hypoactive. martino present draining large amounts of pale yellow urine. All surgical dressings CDI. R IJ cordis with swan @ 47, l radial a-line and L wrist PIV. central lines zeroed,
flushed, maintained. Recieved with levo at 8, dobutamine at 2, bumex at 1, amio at 0.5, insulin per protocol. call rivera within reach, bed low and locked.
[2024-01-31 19:13] LABS: Glucose - Point of Care 131 mg/dl (70-99)
[2024-01-31 19:42] LABS: Blood Urea Nitrogen 20 mg/dl (7-17); Calcium 8.7 mg/dl (8.4-10.2); Carbon Dioxide 31 mmol/L (22-30); Chloride 104 mmol/L (98-107); Estimated Creatinine Clearance 53 ml/min; Glucose 127 mg/dl (70-99); Potassium 4.3 mmol/L (3.5-5.1); Sodium 142 mmol/L (135-145); eGFR 52.73
[2024-01-31 20:12] LABS: Glucose - Point of Care 111 mg/dl (70-99)
[2024-01-31 21:03] LABS: Glucose - Point of Care 103 mg/dl (70-99)
[2024-01-31 21:20] LABS: Hematocrit 26.6 % (37.0-47.0); Hemoglobin 9.5 g/dL (12.0-16.0); Mean Corp Hgb Conc. 35.7 g/dL (33.0-37.0); Mean Corpuscular Hgb 30.6 pg (27.0-31.0); Mean Corpuscular Volume 85.8 fL (81.0-99.0); Mean Platelet Volume 10.2 fL (7.4-10.4); Platelet Count 118 10^3/uL (130-400); Red Cell Dist. Width 15.5 % (11.5-14.5); White Blood Cell Count 20.9 10^3/uL (4.8-10.8)
[2024-01-31 21:21] LABS: B.E. 7.4 mmol/L; HCO3 33.4 mmol/L (21-28); Ionized Calcium 1.19 mMOL/L (1.15-1.33); O2 Saturation % 99.2 % (94-98); PCO2 54 mmHg (32-35); PO2 117 mmHg (83-108); Potassium 4.2 mMOL/L (3.5-5.1); Sodium 143 mMOL/L (136-145)
[2024-01-31 21:35] LABS: Magnesium 2.3 mg/dl (1.6-2.3)
--- NOTE | 2024-01-31 22:08 | PTCARENOTE ---
pt started on BIPAP 12/5 d/t c02 retention
[2024-01-31 22:09] LABS: Glucose - Point of Care 99 mg/dl (70-99)
[2024-01-31 23:08] LABS: Glucose - Point of Care 123 mg/dl (70-99)
[2024-01-31 23:13] LABS: B.E. 5.3 mmol/L; HCO3 30.5 mmol/L (21-28); O2 Saturation % 97.8 % (94-98); PCO2 47 mmHg (32-35); PO2 88 mmHg (83-108); pH 7.42 (7.35-7.45)
[2024-02-01] VITALS (34 sets, daily range): BP systolic 88–145; BP diastolic 56–91; PULSE 2–112; BMI 40.4
[2024-02-01] MEDS: NSS 500 IV (00:10)
[2024-02-01] MEDS: DIAMOX 2.5 MG IV (00:12)
[2024-02-01] MEDS: VANCOCIN 200 IV (00:13)
[2024-02-01 00:21] LABS: Glucose - Point of Care 117 mg/dl (70-99)
--- NOTE | 2024-02-01 00:27 | PTCARENOTE ---
ABG looks good on bipap, no other change in assessment, pt sleeping
[2024-02-01] MEDS: LEVOPHED 250 IV ×2 (00:59→06:46)
--- NOTE | 2024-02-01 02:00 | PTCARENOTE ---
dobut weaned to 1 mc per ctpa , assessment unchanged
[2024-02-01 02:06] LABS: Glucose - Point of Care 117 mg/dl (70-99)
[2024-02-01 03:33] LABS: B.E. 7.6 mmol/L; HCO3 33.1 mmol/L (21-28); Ionized Calcium 1.13 mMOL/L (1.15-1.33); O2 Saturation % 98.2 % (94-98); PCO2 51 mmHg (32-35); PO2 95 mmHg (83-108); Sodium 141 mMOL/L (136-145); pH 7.42 (7.35-7.45)
[2024-02-01 03:35] LABS: O2 Therapy nasal cannula
--- NOTE | 2024-02-01 03:35 | PTCARENOTE ---
pt sleeping between care, awakes and follows commands appropriately, voice still very hoarse. tolerating BIPAP well.
[2024-02-01 03:36] LABS: Hematocrit 26.2 % (37.0-47.0); Hemoglobin 9.2 g/dL (12.0-16.0); Mean Corp Hgb Conc. 35.1 g/dL (33.0-37.0); Mean Corpuscular Hgb 30.7 pg (27.0-31.0); Mean Corpuscular Volume 87.3 fL (81.0-99.0); Mean Platelet Volume 10.4 fL (7.4-10.4); Platelet Count 125 10^3/uL (130-400); Red Cell Dist. Width 15.7 % (11.5-14.5); White Blood Cell Count 23.9 10^3/uL (4.8-10.8)
[2024-02-01 03:37] LABS: Mixed Venous O2 Saturation 63.8 %
[2024-02-01 04:06] LABS: Blood Urea Nitrogen 21 mg/dl (7-17); Calcium 8.4 mg/dl (8.4-10.2); Carbon Dioxide 33 mmol/L (22-30); Chloride 103 mmol/L (98-107); Estimated Creatinine Clearance 45 ml/min; Glucose 92 mg/dl (70-99); Magnesium 2.4 mg/dl (1.6-2.3); Sodium 140 mmol/L (135-145); eGFR 43.15
[2024-02-01 04:13] LABS: Glucose - Point of Care 90 mg/dl (70-99)
[2024-02-01] MEDS: CALCIUM CHLORIDE 10% SYRINGE IV ×2 (04:16)
[2024-02-01] MEDS: CALCIUM CHLORIDE 10% SYRINGE 50 ML IV (04:20)
[2024-02-01] MEDS: CALCIUM CHLORIDE 10% SYRINGE 50 MG IV (04:20)
--- NOTE | 2024-02-01 05:47 | W.PN.CT ---
Today's Communication / Plan
-
-pod #3
-s/p chest closure 01/30
-extubated 01/30 at 18:40
-s/p 3 pRBCs and 2 plat on 01/30
-started on Keppra for possible seizure. Head CT 01/30 without acute findings. No further seizure activity noted.
-hemodynamically stable.
-neurologically, last night appeared somnolent, didn't focus on voice or followed commands. Moves all extremities, although not purposefully. Somewhat better this am - more awake, was able to follow commands. Avoid narcotics
-Diamox for metabolic alkalosis
-started on bipap overnight for CO2 retention- increased to 14/5 this am. Recheck ABG at 8 am
-afib with RVR 110s-120s - on Amio drip
-CI 2.35, CO 4.73. mVO2 63.8. Drips: Dobut 1, Levo 10, Amio 0.5, Bumex 1 (stopped at 8 pm, restarted at 6am), Insulin
-CT output: 2 meds 85/200, 2 pleur 80/315 in 12/24 hrs
-follow h/h (stable 9.2/26.2) and platelets (improving 125K)
-Cr is trending up- 1.3 today (1.1 on 01/30 and 0.9 prior)- follow
-repleted Ca this am
-neuro checks
-wean drips as tolerated
-if unable to take po in the next 48 hrs, consider starting iv Synthroid 37.5 mcg
-appreciate everyone's input
Assessment / Plan
-
- s/p Emergency repair of ATAAD w/ #23 Bio-bentall, ligation of LM and RM ostia, CABG x 3 (PRINCESS to LAD, GSV to OM, GSV to PDA); DHCA w/ ACP, Open chest for ongoing coagulopathy 01/29/[address] Carroll - POD #3
-s/p R femoral IABP removal & arterial repair of common femoral artery via cutdown & L femoral IABP insertion 01/29/[address] Alarcon
-s/p chest closure by Dr. Myles on 01/31/24, pod #1
- CAD s/p aborted PCI c/b LM dissection extending retrograde to Type A dissection - now s/p Bentall with hemiarch replacement, cabg x3 on 01/29/24
- IABP removed 01/30/24
- hemorrhagic shock c/b coagulopathy
- AF s/p cryo ablation 2015
- HTN
- HLD
- obesity
- hyperparathyroidism s/p parathyroidectomy
- spinal stenosis
- osteoporosis
- multiple tendon repairs
- Acute postop blood loss anemia/ hemorrhagic shock, s/p multiple transfusions
- Acute postop thrombocytopenia/ coagulopathy
- Acute postop hypervolemia/volume overload -on Bumex drip
- Acute postop metabolic alkalosis - tx with Diamox
- Acute postop suspected seizure- followed by Neurology, started on Kera, Head CT without acute findings
- Acute postop a-fib with RVR - tx with Amio bolus x2 and drip
- YARA
- Acute postop hypocalcemia - repleted
Discussed patient care with: Nursing and Care Team
Subjective
Procedure
-s/p Emergency repair of ATAAD w/ #23 Bio-bentall, ligation of LM and RM ostia, CABG x 3 (PRINCESS to LAD, GSV to OM, GSV to PDA); DHCA w/ ACP, Open chest for ongoing coagulopathy on 01/29/[address] Carroll
-s/p chest closure by Dr. Myles on 01/31/24
-
Date of Service: February 01, 2024
Objective Data
-
PT 16.3 Sec (11.4-14.6) H 01/31/24 10:29
INR 1.31 01/31/24 10:29
APTT 37.1 Sec (23.4-35.0) H 01/31/24 10:29
Vital Signs
Vital Signs
Temp Pulse Resp BP Pulse Ox
99.0 F 110 17 119/80 96
01/31/24 23:00 01/31/24 23:10 01/31/24 23:10 01/31/24 23:00 01/31/24 23:05
CT Intake/Output/Weight
01/31/24 01/31/24 02/01/24
06:59 18:59 06:59
Intake Total 2497.2 / 4843.5 3046.9 / 3491.8 444.9 / 3491.8
Output Total 6010 / 8000 2009 / 3210 1200 / 3210
Balance -3512.8 / -3156.5 1036.9 / 281.8 -755.1 / 281.8
SaO2: 96
Physical Exam
-
General: Other (Pt is extubated, opens her eyes spontaneously, repeats 'no' to all questions, not following commands or focusing on voice. Speech is clear. Moves all extremities, not purposefully. No facial droop or asymmetry noted.)
Cardiovascular: Regular rate & rhythm, No Murmurs and Rub
Respiratory: Decreased Breath Sounds
Sternum: Stable
Incision: Clean, Dry and Dressing Intact
Extremities: Edema +1 ( of hands and legs b/l. 2+ DPs b/l. R groin with intact aquacel dressing, soft, no hematoma. L groin cdi, soft, no hematoma (site of iabp))
Data Reviewed
-
Lab Results: Results Reviewed
Medications: Active Meds Reviewed
Chest X-Ray: Report Reviewed and Image Reviewed
ECG: Report Reviewed and Image Reviewed
[2024-02-01] MEDS: ANCEF 5 IV (06:07)
[2024-02-01 06:08] LABS: Glucose - Point of Care 131 mg/dl (70-99)
[2024-02-01] MEDS: TYLENOL PO ×3 (06:10→21:26)
[2024-02-01] MEDS: NOVOLIN R INSULIN INFUSION 100 IV (06:44)
--- NOTE | 2024-02-01 07:39 | W.PN.NEURO.1 ---
Today's Communication / Plan
-
-Check EEG
-Would lower Keppra to 500 mg q12hr IV, plan to come off this and monitor off seizure medication if the EEG not showing findings suggesting high risk for further seizures
-Follow mental status
Will follow
Neuro Assessment/Plan
Assessment
Patient is a 73-year-old woman with a past no history of atrial fibrillation, coronary artery disease who underwent cardiac catheterization on 01/28 was not successful in PTCA of the LAD due to severe calcifications and was complicated by left
anterior artery descending dissection. She had intra-aortic balloon pump placed. She had further complications of ascending type a aortic dissection with CABG and underwent operative repair of this along with repair of common femoral artery from
vascular surgery. She did have intraoperature cirulatory arrest and hypothermia.
Postoperatively the patient has been intubated and being manage medically. She has been following commands and had an episode this afternoon where she seemed to become poorly responsive and then had a short-lived bilateral type raising of the arms
without repetitive clonic activity and after couple minutes seem to come to and obey commands once again. There was no overt tonic posturing seen or unilateral features of the arms or gaze preference seen.
Impressions
1. Possible short-lived seizure. Now obeying commands. Other possibilities would include agitation and/or encephalopathy or nonepileptic myoclonus.
2. Atrial fibrillation
3. Coronary artery disease
4. Dissection of coronary artery complicated by aortic dissection with repair as well as CABG, as well as right femoral artery repair
CT head non contrast no abnormalities seen
Subjective/Objective
Subjective Data
Date of Service: February 01, 2024
No acute events, had CT head non contrast which showed no acute abnormalities. Extubated this morning, some periods of less responsiveness but no convulsive activity seen, obeying commands on this conversation.
Objective Data
Vital Signs
Temp Pulse Resp BP Pulse Ox
98.8 F 114 16 144/68 96
02/01/24 07:00 02/01/24 07:00 02/01/24 07:00 02/01/24 07:00 02/01/24 07:00
Lab Results
02/01/24 03:23
PT 16.3 Sec (11.4-14.6) H 01/31/24 10:29
INR 1.31 01/31/24 10:29
APTT 37.1 Sec (23.4-35.0) H 01/31/24 10:29
Sodium 140 mmol/L (135-145) 02/01/24 03:23
Potassium 4.0 mmol/L (3.5-5.1) 02/01/24 03:23
BUN 21 mg/dl (7-17) H 02/01/24 03:23
Glucose 92 mg/dl (70-99) 02/01/24 03:23
Calcium 8.4 mg/dl (8.4-10.2) 02/01/24 03:23
Phosphorus 4.9 mg/dl (2.5-4.5) H 01/31/24 09:38
Patient Allergies
adhesive Allergy (Verified 01/29/24 08:06)
Rash
chlorhexidine Allergy (Verified 01/29/24 08:06)
Hives
levofloxacin Allergy (Verified 01/29/24 08:06)
affects tendons
pravastatin Allergy (Verified 01/29/24 07:54)
Unknown
Review of Systems
-
Unable to obtain full review of systems at this time due to: Patient Intubation
Physical Exam
-
General: Obese and Other (BiPAP on)
Eyes: No Ptosis
HEENT: Normocephalic
Neck: No Bruits Bilaterally
Respiratory: Clear to Auscultation
Cardiac: Regular Rhythm
GI: Soft and Non-tender
Skin: Warm and Dry; Negative Rash
Extremities: No Edema
Psych: Unremarkable
Extended Neurological Exam
Mood & Affect: Mood Unremarkable and Affect Unremarkable
Attention Span & Concentration: Interactive
Memory: Unable to Assess
Tremor: Hand Tremor Absent
Involuntary Movement: None
Speech: Other (Comprehension intact obeys commands consistently)
Cranial Nerve II: Left Eye: Pupillary Reactivity Unremarkable and Pupillary Size Unremarkable
Cranial Nerve II: Right Eye: Pupillary Reactivity Unremarkable and Pupillary Size Unremarkable
Cranial Nerves III, IV, : Extraocular Movement: Extraocular Movement Full in all Directions
Cranial Nerve V: Facial Sensation: Other (Corneal intact bilaterally)
Cranial Nerve VII: Facial Symmetry: Other (Corneal intact bilaterally)
Muscle Strength, Overall: Other (Obeys commands in all extremities 5/5 arm flexion, withdraws in symmetric manner 4/5 to foot noxious stimulation)
Deep Tendon Reflexes: Trace Throughout
Babinski Sign: Absent Bilaterally
Data Reviewed
-
CT Head: Image Reviewed
EEG: Ordered and Pending
--- NOTE | 2024-02-01 07:48 | W.PN.ANS.POP ---
Anesthesia Post Operative
- Anesthesia Post Op Note
Vital Signs Stable-See Nursing Note: Yes
Airway Patent: Yes
Adequate Pain Control: Yes
Change in Mental Status: No
Current Postoperative Nausea & Vomiting: No
Anesthesia Complications: No
General Anesthetic Recall: No
Unplanned Admission: No
Post Op Hydration Adequate: Yes
- -
Pt resting comfortably, no anesthesia c/o, VSS.
--- NOTE | 2024-02-01 07:51 | PTCARENOTE ---
Patient received from nightshift nurse. Patient is responsive, able to follow commands and moves all extremities (wiggles feet bilaterally and slightly squeezes hands bilaterally). Muscle strength grading +3 in UE and +4 in LE. Pupils 3mm sluggish,
tracks finger when woken up. Patient has difficulty speaking w/ BiPAP pressure. She is able to nod her head appropriately to answer yes/no questions. She is alert at times, but lethargic and sleeps a lot. Oriented x3, disoriented to time (she does
not nod her head yes/no). RASS 0/-1. Afib with RVR. HR 110s-120s. Irregular apical pulse. Audible heart tones. Epicardial V wire maintained to pacer box - turned on for backup. Pacer box settings: VVI. HR 30, mA 10, sensitivity 0.8. Thresholds not
checked r/t Afib with RVR, placed on backup in case patient bradys down when converts to SR. L radial a-line maintained w/ BP 100s-120s/50s-60s, correlating with BP cuff. RIJ cordis and swan maintained at 45. PA pressures 20s-30s/10s-20s. CVP 10-16.
CO 4.71, CI 2.34. SVR 1070. Core temp 98.8. Palpable pulses, doppler posterior tibial pulses. +1 generalized edema. Levo gtt received at 6mcgs/min. Dobutamine gtt received at 1mcg/kg/min. Cardene gtt received on standby. Bumex gtt received at
1mg/hr. Amio gtt received at 0.5mg/min. Cordis and VIP KVOs maintained. Insulin gtt maintained per critical care glycemic protocol. PIV maintained. BiPAP maintained with settings: 6L, 14/6. Oxygen saturation 96%. Upon auscultation, bilateral
anterior lung sounds diminished. Mouth care provided. CTx4 maintained to -20cm wall suction. MS CTx2 have small serosanguineous drainage. Bilateral pleural CTs have small serosanguineous drainage. Hypoactive BS. Abdomen round, obese. Yap
maintained with large amounts of clear, yellow UOP. Yap care provided. Complete bedrest - turned repositioned with max assist. Sternal incision is covered by SHILO dressing, which is clean, dry, intact. CT dressing is clean, dry, intact. R groin
aquacell has some old drainage but is clean, dry, intact. LLE aquacell has some old drainage, but is clean, dry, intact. Awaiting round to determine plan of care for the day.
[2024-02-01 07:58] LABS: Glucose - Point of Care 104 mg/dl (70-99)
[2024-02-01] MEDS: FLEXBUMIN 100 IV ×2 (08:00→16:45)
[2024-02-01] MEDS: CRESTOR PO (08:01)
[2024-02-01] MEDS: SENOKOT-S PO ×2 (08:01→21:26)
[2024-02-01] MEDS: MAGNESIUM OXIDE PO ×2 (08:01→21:26)
[2024-02-01] MEDS: PROTONIX PO (08:01)
[2024-02-01] MEDS: PACERONE PO ×2 (08:01→16:14)
[2024-02-01] MEDS: BACTROBAN 2% OINTMENT 1 APPLIC NASAL ×2 (08:02→21:11)
[2024-02-01] MEDS: LIDOCAINE 4% PATCH TOPICAL ×2 (08:12→08:22)
[2024-02-01 08:22] LABS: HCO3 32.4 mmol/L (21-28); Ionized Calcium 1.28 mMOL/L (1.15-1.33); O2 Saturation % 98.5 % (94-98); PCO2 50 mmHg (32-35); PO2 113 mmHg (83-108); pH 7.42 (7.35-7.45)
[2024-02-01] MEDS: BUMEX 50 IV (08:35)
[2024-02-01 08:37] LABS: Blood Urea Nitrogen 22 mg/dl (7-17); Calcium 9.3 mg/dl (8.4-10.2); Carbon Dioxide 33 mmol/L (22-30); Chloride 103 mmol/L (98-107); Estimated Creatinine Clearance 49 ml/min; Glucose 96 mg/dl (70-99); Potassium 3.8 mmol/L (3.5-5.1); Sodium 139 mmol/L (135-145)
[2024-02-01 08:57] LABS: Glucose - Point of Care 88 mg/dl (70-99)
[2024-02-01] MEDS: KCL 50 IV (09:22)
[2024-02-01] MEDS: KEPPRA 1000 MG IV (09:23)
[2024-02-01] MEDS: CORDARONE 518 MG IV (09:57)
[2024-02-01] MEDS: CORDARONE 103 MG IV (09:57)
[2024-02-01 10:04] LABS: Glucose - Point of Care 133 mg/dl (70-99)
--- NOTE | 2024-02-01 10:05 | W.PN.INTV ---
Today's Communication / Plan
Recommendations
BiPAP while sleepy
Once off BiPAP, then check a daytime blood gas to assess for OHS - she may need to go home with BiPAP
Maintain net negative fluid as tolerated given elevated PADP/CVP seen at bedside Wilsey
Pain control
Maintain MAP>65
prn duonebs
Assessment
-
Assessment: 73-year-old F with a PMHx of A-fib s/p cryoablation (2015), hypothyroidism, hypertension, hyperlipidemia, spinal stenosis and asthma who initially presented with worsening angina and left heart catheterization. [facility] performed on
01/29/2024 and there was great difficulty in advancing equipment to predilate the lesion. Patient unfortunately developed an LAD dissection, and patient had an intra-aortic balloon pump placed by vascular surgery for hemodynamic support.
Cardiothoracic surgery consulted, and patient went to the OR where initial EUSEBIA showed moderate�severe AI with flap of type a aortic dissection visible in the ascending aorta and proximal arch. There also was extensive dissection involving the
entire aortic root. On 01/28/2023, patient underwent emergency repair of her type a dissection, ligation of LM and RM ostia, CABG x 3 with deep hypothermic circulatory arrest and antegrade cerebral perfusion. At the procedures end, pt with open
chest due to ongoing coagulopathy and open chest dressing was placed. Patient required multiple blood transfusions including 10 units PRBC, 4 units platelets, 8 units FFP, and 9 mg of factor VIIa. There were no immediate complications
postoperatively, and patient was transferred to the CVICU for further care with critical care services consulted for additional management/recommendations.
Chronic conditions REPAIR ARMATURE WINDER: Paroxysmal A-fib s/p cryoablation (2016), hypertension, carotid artery atherosclerosis, asthma, hyperlipidemia, obesity, hyperparathyroidism s/p parathyroidectomy, hypothyroidism, spinal stenosis
Impression:
#CAD s/p LHC c/b ATAAD involving LM/RM/aortic root and extending to proximal aortic arch s/p repair with Bio-Bentall, ligation of LM/RM ostia and CABG x3 (POD#3)
#Coagulopathy due to surgery
#Open chest s/p chest closure (POD#1)
#Ventilator dependent respiratory failure - patient extubated on 01/31/2024
#Lactic acidosis - resolved
#Hypernatremia - resolved
#Anemia
#Transaminitis - improving
Plan:
Patient extubated and is now on BiPAP 14/5
Wean supplemental flow rate to maintain SpO2 >94%
Once pt more awake, can take off BiPAP and can use with sleep only
Once off BiPAP, then check a daytime blood gas to assess for OHS
prn nebulized bronchodilators
Pulmonary artery catheter parameters will be followed
Pressors/antihypertensive/inotropes/diuretics will be provided as needed
Maintain MAP>65
Replete electrolytes with K>4, Mg>2
Monitor chest tube output (L+R pleural chest tubes + mediastinal chest tubes x2)
Monitor hemoglobin
Monitor platelet count and coags
Transfuse blood product if needed to keep Hb>8g/dL and plt>50k
CT surgery managing chest tubes
Monitor blood sugar with goal BG 140-180mg/dL
Insulin supplementation as needed
Aspiration precautions
VAP prevention protocol
DVT prophylaxis
Early nutrition
Early mobilization
Critical care statement: A total of 38 minutes of critical care time was provided for this patient today. This includes management of ventilator, spontaneous breathing trial, arterial blood gases, pressors, of unstable vital signs, evaluation of the
patient at bedside, reviewing the patient's pertinent medical records including radiographs, microbiology, laboratory evaluations, and discussion with primary team and critical care nursing.
Data:
CXR 02-01-2024:
1. Interval extubation.
2. Postoperative from surgical aortic valve replacement and CABG surgery.
3. Pulmonary arterial catheter and chest tubes remaining in place.
4. Moderately decreased lung volumes with left to right mediastinal shift.
5. Small left pleural effusion.
CXR 01-31-2024: Endotracheal tube and right internal jugular Wilsey-Phillip catheter remain in place. No pneumothorax identified. The cardiomediastinal margins are stable. No evidence to suggest congestive heart failure. Minor atelectasis in the medial
left lung base.
CXR 01-30-2024: Postoperative changes; No pneumothorax
Subjective Dataa
Subjective Data
Date of Service:
Date of Service: February 01, 2024
Chief Complaint: Milk Drier Follow Up
Subjective:
Patient seen this morning. Son and at bedside. All questions were answered. She was extubated since yesterdat, and is now on BiPAP 14/5 bled with 2L/min. BP via A-line is 107/56, heart rate 92, SpO2 94%, PAP 40/25, CVP 17, and BP via
NIBP is 113/83. She is being diuresed with Bumex at 1mg/hr, is on amio at 0.5mg/min and levophed at 4mcg/min. She is lethargic although easily arousable to voice.
Review of Systems
General: Other (Unable to obtain due to patient's acute clinical status)
Objective Data
Data Reviewed
Vital Signs / I&O / Oxygen:
Vital Signs
Temp Pulse Resp BP Pulse Ox
98.2 F 102 14 120/74 92
02/01/24 16:00 02/01/24 16:00 02/01/24 16:00 02/01/24 16:00 02/01/24 16:00
Intake and Output
01/31/24 02/01/24 02/02/24
06:59 06:59 06:59
Intake Total 4748.3 / 4843.5 4247.0 / 4345.1 1168.7 / 1168.7
Output Total 7690 / 8000 3935 / 4235 1840 / 1840
Balance -2941.7 / -3156.5 312.0 / 110.1 -671.3 / -671.3
SaO2 [CPAP/PSV] 99
SaO2 [SIMV] 98
SaO2 92
Nasal Cannula flow liters per 6
minute
Physical Exam
General: Respiratory Distress (negative) and Comfortable
HEENT: Normocephalic and Anicteric
Cardiovascular: S1-S2 and Peripheral Edema (negative)
Respiratory: Wheeze (negative), Crackles (negative), Rhonchi (negative), Non-Labored Respirations (negative), Chest Tube (x4 (left and right pleural and mediastinal x2)) and Other (Course breath sounds heard bilaterally)
GI: Soft, Non Distended and Non Tender
Neurology: Tremors (negative) and Lethargic
Skin: Warm and Dry
Labs/Micro/Reports
Lab Data
02/01/24 11:04
Laboratory Results
01/31/24 01/31/24 01/31/24
18:14 21:14 23:07
pH 7.44 7.40 7.42
pCO2 46 H 54 H 47 H
pO2 118 H 117 H 88
HCO3 31.2 H 33.4 H 30.5 H
O2 Delivery Level
02/01/24 02/01/24 02/01/24
03:23 06:00 07:52
pH 7.42 Cancelled 7.42
pCO2 51 H Cancelled 50 H
pO2 95 Cancelled 113 H
HCO3 33.1 H Cancelled 32.4 H
O2 Delivery Level nasal cannula Cancelled Not Reportable
02/01/24 02/01/24
11:04 12:00
pH 7.39 Cancelled
pCO2 49 H Cancelled
pO2 108 Cancelled
HCO3 29.7 H Cancelled
O2 Delivery Level Not Reportable Cancelled
--- NOTE | 2024-02-01 10:26 | W.PN.CD ---
Today's Communication / Plan
-
-Continue to wean drips; currently on dobutamine.
-Continue IV amiodarone.
-Continue supportive care and dietitian teacher.
Impression / Plan
-
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
-Emergency repair (#23 bio Bentall), ligation of LM/R and ostia, C
-Now extubated.
-Case complicated by coagulopathy which is improving
-Continue to wean drips; currently on dobutamine.
-Continue supportive care.
Paroxysmal atrial fibrillation--now with post op A fib with RVR
-Cryoablation in 2016
-[id number] score at least 3 (vascular disease, female gender, age 73)
-not currently on OAC with complex surgery and coagulopathy
-Continue IV amiodarone.
Hypertension, now hypotensive, all agents on hold with vasopressor support
HLD, goal LDL <55, resume rosuvastatin when able
Hypothyroidism on levothyroxine
CCT 37 minutes
Physical Exam
Vital Signs/Labs
Vital Signs
Temp Pulse Resp BP Pulse Ox
98.8 F 106 14 113/78 96
02/01/24 10:00 02/01/24 10:00 02/01/24 10:00 02/01/24 10:00 02/01/24 10:00
01/31/24 02/01/24 02/02/24
06:59 06:59 06:59
Actual Weight 105.6 kg 106.6 kg
02/01/24 03:23
PT 16.3 Sec (11.4-14.6) H 01/31/24 10:29
INR 1.31 01/31/24 10:29
APTT 37.1 Sec (23.4-35.0) H 01/31/24 10:29
Magnesium 2.4 mg/dl (1.6-2.3) H 02/01/24 03:23
LAB Results
01/29/24
10:10
Troponin I < 0.012
Physical Exam
Constitutional: No acute distress
EENT: Anicteric
Cardiovascular: Pedal edema is absent, Systolic murmur absent, Rhythm/rate is irregular and S1S2 is normal
Respiratory: Respiratory effort normal, Wheeze Absent and Other (Coarse bilateral breath sounds)
GI: Soft
Neuro/Psych: Other (Somnolent)
Other: Skin (Warm, dry, intact)
Data Reviewed
-
Date of Service: February 01, 2024
EKG: Report Reviewed by me (Telemetry: A-fib)
Echo: Tracing Personally Visualized and interpreted (EF 65-70%)
Medical Tests (PFT, Pathology etc): Discussed with Nurse
Labs: Labs Reviewed by me
Critical Care Time (in minutes): 37
[2024-02-01 10:55] LABS: % Basophils 0.3 % (0-2); % Immature Granulocytes 1.4 % (0-0.5); % Lymphocytes 8.6 % (20.5-51.1); % Monocytes 5.4 % (1.7-9.3); % Neutrophils 84.3 % (42.2-75.2); Absolute Basophils 0.1 10^3/uL (0-0.2); Absolute Immature Granulocytes 0.3 10^3/uL (0-0.05); Absolute Monocytes 1.3 10^3/uL (0.1-0.6); Absolute Neutrophils 19.7 10^3/uL (1.4-6.5); Nucleated Red Blood Cells % 0 %
[2024-02-01 11:18] LABS: Glucose - Point of Care 126 mg/dl (70-99)
[2024-02-01 11:23] LABS: % Basophils 0.3 % (0-2); % Immature Granulocytes 1.8 % (0-0.5); % Lymphocytes 7.7 % (20.5-51.1); % Neutrophils 86.2 % (42.2-75.2); Absolute Basophils 0.1 10^3/uL (0-0.2); Absolute Immature Granulocytes 0.4 10^3/uL (0-0.05); Absolute Lymphocytes 1.6 10^3/uL (1.2-3.4); Absolute Monocytes 0.8 10^3/uL (0.1-0.6); Absolute Neutrophils 17.6 10^3/uL (1.4-6.5); Hematocrit 26.2 % (37.0-47.0); Hemoglobin 8.7 g/dL (12.0-16.0); Mean Corp Hgb Conc. 33.2 g/dL (33.0-37.0); Mean Corpuscular Hgb 30.4 pg (27.0-31.0); Mean Corpuscular Volume 91.6 fL (81.0-99.0); Nucleated Red Blood Cells % 0 %; Platelet Count 101 10^3/uL (130-400); Red Blood Cell Count 2.86 10^6/uL (4.20-5.40); Red Cell Dist. Width 15.9 % (11.5-14.5); White Blood Cell Count 20.4 10^3/uL (4.8-10.8)
--- NOTE | 2024-02-01 11:23 | PTCARENOTE ---
Vital signs stable. Patient wakes up occasionally and is able to nod appropriately to answer yes/no questions - whether she is in pain, or if she is comfortable, etc. Denies pain/discomfort. Afib. HR 90s post amio bolus. L radial a-line maintained
with BP 100s-110s/50s-60s. Correlating with RUE BP cuff 118/67. RIJ cordis and swan maintained at 45cm. PA pressures 30s-40s/20s. CVP 16-17. CO 3.88, CI 1.93, SVR 1175. Slowly weaning levo gtt down, currently at 5mcgs/min. Bumex maintained at
1mg/hr. Amio gtt maintained at 0.5mg/min. Cordis and VIP KVOs maintained. Insulin gtt maintained per critical care glycemic protocol. PIV maintained. BiPAP maintained with pressure 14/5. ABG and MVO2 drawn - weaned BiPAP down to 2L. Dobutamine
remained off, per CT LOCAL SUPERINTENDENT. Oxygen saturation 95%. CTx4 maintained to -20cm wall suction. MS CTx2 have small red drainage. Bilateral pleural CTs have small serosanguineous drainage. Yap maintained with adequate claer, yellow UOP. Assist x2 to
turn/reposition. Bilateral heel pads applied and maintained. Will continue to titrate levo gtt downwards.
[2024-02-01 11:26] LABS: B.E. 4.1 mmol/L; HCO3 29.7 mmol/L (21-28); Ionized Calcium 1.25 mMOL/L (1.15-1.33); O2 Saturation % 98.8 % (94-98); PCO2 49 mmHg (32-35); PO2 108 mmHg (83-108); Potassium 4.4 mMOL/L (3.5-5.1); Sodium 140 mMOL/L (136-145); pH 7.39 (7.35-7.45)
[2024-02-01 11:37] LABS: Blood Urea Nitrogen 23 mg/dl (7-17); Calcium 9.2 mg/dl (8.4-10.2); Carbon Dioxide 30 mmol/L (22-30); Chloride 102 mmol/L (98-107); Estimated Creatinine Clearance 45 ml/min; Glucose 119 mg/dl (70-99); Magnesium 2.2 mg/dl (1.6-2.3); Potassium 4.3 mmol/L (3.5-5.1); Sodium 138 mmol/L (135-145); eGFR 43.15
[2024-02-01] MEDS: ASPIRIN 300 MG RECTAL (12:15)
--- NOTE | 2024-02-01 12:38 | EEG.RPT ---
Electroencephalogram Report
Recording
Date of EE02/01/24
Length of EEG recordin minutes
Patient Status: Inpatient
Recording Conditions: Awake and Drowsy
Hyperventilation Performed: No
Photic Stimulation Performed: Yes
Hand Dominance: Unknown
Report
LESS THAN 1 HOUR REPORT
METHODS:
A 21 channel digitized electroencephalogram (EEG) was performed at the bedside in the ICU. The 10/20 international system of electrode placement was used with ECG and lateral/vertical eye movements recorded. �Video was recorded. Duration was 28
minutes.
QUALITY OF STUDY:
Good
ELECTROENCEPHALOGRAPHER IMPRESSION(S):
Background
Medium amplitude mix of theta and delta frequencies
No normal posterior dominant alpha rhythm seen
There were no significant asymmetries of background activity noted.
Sleep
Drowsiness seen
Photic Stimulation
Failed to activate the record
ECG
Normal sinus rhythm
Abnormal EEG Activity
Mild diffuse slowing, no seizures or interictal epileptiform discharges seen
LESS THAN 1 HOUR EEG INTERPRETATION:
Mildly abnormal EEG for age due to mild diffuse bihemispheric slowing
CLINICAL CORRELATION:
This study was suggestive of mild diffuse cortical dysfunction without focal abnormality. Slowing is non-specific as to cause and can be seen due to sedative medications, renal and liver injury, and others. No seizures were recorded.
Clinical correlation is advised.
[2024-02-01 12:40] LABS: Glucose - Point of Care 91 mg/dl (70-99)
--- NOTE | 2024-02-01 14:21 | W.PN.UPDATE ---
Update Note
Progress Note Update
Neurology following, continue higher rate on bipap to get CO2 down, diurese again till 8pm and then turn off. Once more awake, will need to consider enteral feeding with DHT if needed.
[2024-02-01 14:32] LABS: Glucose - Point of Care 118 mg/dl (70-99)
--- NOTE | 2024-02-01 15:04 | CM ---
CM following for DC planning needs.
DC needs uncertain at this time; will depend on medical progress.
Will cont to follow closely.
[2024-02-01] MEDS: FERRLECIT 110 MG IV (15:16)
--- NOTE | 2024-02-01 15:29 | PTCARENOTE ---
Vital signs stable. Patient wakes up occasionally and is able to nod appropriately to answer yes/no questions - whether she is in pain, or if she is comfortable, etc. Denies pain/discomfort. Afib. HR 90s-100s. L radial a-line maintained with BP
110s-120s/60s. Correlating with RUE BP cuff 120/74. RIJ cordis and swan maintained at 45cm. PA pressures 30s/20s. CVP 15. CO 3.85, CI 1.92, SVR 1412. MVO2 63.6. Levo titrated down to 2mcgs/min. Bumex maintained at 1mg/hr. Amio gtt maintained at
0.5mg/min. Cordis and VIP KVOs maintained. Insulin gtt maintained per critical care glycemic protocol. PIV maintained. BiPAP maintained with pressure 14/5 with 2L. Oxygen saturation 93%. CTx4 maintained to -20cm wall suction. MS CTx2 have small
serosanguineous drainage. Bilateral pleural CTs have small serosanguineous drainage. Yap maintained with adequate clear, yellow UOP. Assist x2 to turn/reposition.
[2024-02-01 16:26] LABS: Glucose - Point of Care 86 mg/dl (70-99)
[2024-02-01 16:40] LABS: Mixed Venous O2 Saturation 63.6 %
--- NOTE | 2024-02-01 17:23 | PTCARENOTE ---
CT CAMERA REPAIR TECHNICIAN inserted L nare Dobhov. Patient tolerated. Abdomen Xray obtained. Absence of respiratory distress post tube placement. Once placement verified, CT CAMERA REPAIR TECHNICIAN removed stylet and anchored Dobhov to her nose. Dobhov placement for medications tonight and
the plan is to start tickle feeds tomorrow.
[2024-02-01 18:37] LABS: Glucose - Point of Care 130 mg/dl (70-99)
[2024-02-01 18:46] LABS: B.E. 4.9 mmol/L; HCO3 30.4 mmol/L (21-28); Ionized Calcium 1.19 mMOL/L (1.15-1.33); O2 Saturation % 98.2 % (94-98); PCO2 49 mmHg (32-35); PO2 88 mmHg (83-108); Potassium 4.3 mMOL/L (3.5-5.1); Sodium 140 mMOL/L (136-145)
--- NOTE | 2024-02-01 19:00 | PTCARENOTE ---
assumed care of patient @ 1900. received pt laying in bed, AOX2, forgetful to time. very drowsy, however follows commands appropriately, nods head yes and no, moves all extremities appropriately. voice still very hoarse. Afib on tele HR low 100s.
C.I >2, PAP 30s/20s, CVP ~15. +1 generalized edema, weak but palpable pulses throughout. V wire hooked to box VVI. Lungs clear, very diminished on BIPAP 14/5 with 2L 02. 4 chest tubes L and R pleural 2 meds to wall suction, no air leak, tidaling or
crepitus noted. belly soft, nontender, obese, dobhoff in L nare for meds. martino draining pale yellow urine. All surgical sites CDI. R IJ cordis with swan at 47, L radial a-line, L wrist #20 PIV all lines patent. recieved with amio at 0.5, levo at 2,
bumex at 1, insulin per protocol. pt resting comfortably, sleeping between care.
[2024-02-01 19:05] LABS: Ammonia < 9 umol/L (9-30)
[2024-02-01 19:06] LABS: ALT (SGPT) 24 U/L (0-35); AST (SGOT) 53 U/L (14-36); Albumin 3.9 g/dl (3.5-5.0); Alkaline Phosphatase 66 U/L (38-126); Blood Urea Nitrogen 25 mg/dl (7-17); Calcium 8.8 mg/dl (8.4-10.2); Carbon Dioxide 31 mmol/L (22-30); Chloride 100 mmol/L (98-107); Estimated Creatinine Clearance 42 ml/min; Glucose 117 mg/dl (70-99); Potassium 4.2 mmol/L (3.5-5.1); Sodium 137 mmol/L (135-145); Total Bilirubin 1.4 mg/dl (0.2-1.3); Total Protein 5.6 g/dl (6.3-8.2); eGFR 39.48
--- NOTE | 2024-02-01 20:00 | PTCARENOTE ---
RT in to adjust BIPAP mask, mouthcare done with mask off - pt with small spitup/emesis- RT placed nasal mask back on instead of full face mask. 02 bumped up to 6L from desat 88. 02 recovered, pt tolerating nasal mask well.
[2024-02-01 20:13] LABS: Glucose - Point of Care 92 mg/dl (70-99)
[2024-02-01] MEDS: KEPPRA 500 MG IV (21:11)
[2024-02-01] MEDS: PACERONE 200 MG PO (21:19)
[2024-02-01 22:15] LABS: Glucose - Point of Care 99 mg/dl (70-99)
[2024-02-02] VITALS (39 sets, daily range): BP systolic 95–150; BP diastolic 43–96; PULSE 2–95; BMI 39.8
--- NOTE | 2024-02-02 | PTCARENOTE ---
full bed bath given, new drawsheets, leads, chest tube dressing. assessment unchanged
[2024-02-02 00:26] LABS: Glucose - Point of Care 102 mg/dl (70-99)
[2024-02-02] MEDS: FLEXBUMIN 100 IV (00:34)
[2024-02-02 02:27] LABS: Glucose - Point of Care 92 mg/dl (70-99)
[2024-02-02 03:49] LABS: Glucose - Point of Care 102 mg/dl (70-99)
[2024-02-02 03:59] LABS: B.E. 7.4 mmol/L; Ionized Calcium 1.16 mMOL/L (1.15-1.33); O2 Saturation % 95.6 % (94-98); PCO2 52 mmHg (32-35); PO2 76 mmHg (83-108); pH 7.41 (7.35-7.45)
--- NOTE | 2024-02-02 04:00 | PTCARENOTE ---
pt sleeping between care, no change in assessment.
[2024-02-02 04:07] LABS: Hematocrit 24.4 % (37.0-47.0); Hemoglobin 8.2 g/dL (12.0-16.0); Mean Corp Hgb Conc. 33.6 g/dL (33.0-37.0); Mean Corpuscular Hgb 30.3 pg (27.0-31.0); Mean Platelet Volume 11.2 fL (7.4-10.4); Platelet Count 80 10^3/uL (130-400); Red Blood Cell Count 2.71 10^6/uL (4.20-5.40); Red Cell Dist. Width 15.5 % (11.5-14.5); White Blood Cell Count 16.5 10^3/uL (4.8-10.8)
[2024-02-02 04:29] LABS: Blood Urea Nitrogen 28 mg/dl (7-17); Calcium 8.6 mg/dl (8.4-10.2); Carbon Dioxide 32 mmol/L (22-30); Chloride 100 mmol/L (98-107); Estimated Creatinine Clearance 39 ml/min; Glucose 95 mg/dl (70-99); Magnesium 2.2 mg/dl (1.6-2.3); Potassium 3.9 mmol/L (3.5-5.1); Sodium 138 mmol/L (135-145); eGFR 36.34
--- NOTE | 2024-02-02 04:30 | W.PN.CT ---
Today's Communication / Plan
-
-No major issues overnight. Hemodynamically stable.
-Moving all extremities appropriately, alert and oriented x 2, not fully oriented to time
-Weaned off dobutamine gtt yesterday 02/01/24
-Currently on Amiodarone gtt (for a-fib), and insulin gtt. Weaned off bumex gtt last night, to resume x12 hrs starting @ 8 AM
-Monitor u/o, has martino catheter, 3230 mL/24hrs. Monitor cr, 1.5, was 1.4 yesterday, 0.6-0.8 preop
-Consider d/c of Keppra (decreased from 1g BID to 500 mg BID), no seizures per EEG, Neurology following
-Consider d/c of chest tubes, cxr looks good, drainage: 2meds 135/245, R/L pleurals 45/120
-Retaining CO2 and currently on BIPAP, setting increased from 14/5 to 20/15 this AM given ABG findings
-Keep a-line to f/u ABG's
-Consider d/c of swan
-Consider resumption of low dose BB if BP permits
-Monitor plts 80K today, was 101 yesterday, on ASA/Plavix, will need to hold if cont. to drop
-PT/OT consult, deconditioned/OOB into chair/Ambulate
-Encourage use of IS
-Cont. martino catheter while on bumex gtt
-Maintain temporary pacer wires (will cut before d/c )
Assessment / Plan
-
- s/p Emergency repair of ATAAD w/ #23 Bio-bentall, ligation of LM and RM ostia, CABG x 3 (PRINCESS to LAD, GSV to OM, GSV to PDA); DHCA w/ ACP, Open chest for ongoing coagulopathy 01/29/[address] Carroll - POD #4
-s/p R femoral IABP removal & arterial repair of common femoral artery via cutdown & L femoral IABP insertion 01/29/[address] Alarcon
-s/p chest closure by Dr. Myles on 01/31/24, pod #2
- CAD s/p aborted PCI c/b LM dissection extending retrograde to Type A dissection - now s/p Bentall with hemiarch replacement, cabg x3 on 01/29/24
- IABP removed 01/30/24
- hemorrhagic shock c/b coagulopathy
- AF s/p cryo ablation 2015
- HTN
- HLD
- obesity
- hyperparathyroidism s/p parathyroidectomy
- spinal stenosis
- osteoporosis
- multiple tendon repairs
- Acute postop blood loss anemia/ hemorrhagic shock, s/p multiple transfusions
- Acute postop thrombocytopenia/ coagulopathy
- Acute postop hypervolemia/volume overload -on Bumex drip
- Acute postop metabolic alkalosis - tx with Diamox
- Acute postop suspected seizure- followed by Neurology, started on , Head CT without acute findings
- Acute postop a-fib with RVR - tx with Amio bolus x2 and drip
- YARA
- Acute postop hypocalcemia - repleted
- Acute postop hypercapnia
- Acute postop pulmonary insufficiency
Discussed patient care with: Cardiology, Nursing, Respiratory Therapy, Pharmacy and Care Team
Subjective
Procedure
-s/p Emergency repair of ATAAD w/ #23 Bio-bentall, ligation of LM and RM ostia, CABG x 3 (PRINCESS to LAD, GSV to OM, GSV to PDA); DHCA w/ ACP, Open chest for ongoing coagulopathy on 01/29/[address] Carroll
-s/p chest closure by Dr. Myles on 01/31/24
-
Date of Service: February 02, 2024
Pt alert and oriented x 2, not fully oriented to time. C/O mild incisional pain
Objective Data
-
Lab Results
02/02/24 03:46
02/02/24 03:46
PT 16.3 Sec (11.4-14.6) H 01/31/24 10:29
INR 1.31 01/31/24 10:29
APTT 37.1 Sec (23.4-35.0) H 01/31/24 10:29
Vital Signs
Vital Signs
Temp Pulse Resp BP Pulse Ox
98.6 F 96 14 97/61 96
02/02/24 03:00 02/02/24 03:00 02/02/24 03:00 02/02/24 03:00 02/02/24 03:00
CT Intake/Output/Weight
02/01/24 02/01/24 02/02/24
06:59 18:59 06:59
Intake Total 1200.1 / 4345.1 1284.9 / 1683.9 399.0 / 1683.9
Output Total 1925 / 4235 2195 / 3450 1255 / 3450
Balance -724.9 / 110.1 -910.1 / -1766.1 -856.0 / -1766.1
SaO2: 96
Physical Exam
-
General: Awake, Oriented and AOx3 (oriented x 2, not oriented to time)
Cardiovascular: Regular rate & rhythm, No Murmurs, No Rub and No Gallop
Respiratory: Decreased Breath Sounds
Sternum: Stable
Incision: Dry, Intact and Dressing Intact
Extremities: No Edema
Data Reviewed
-
Lab Results: Results Reviewed
Medications: Active Meds Reviewed
Chest X-Ray: Report Reviewed and Image Reviewed
ECG: Report Reviewed and Image Reviewed
--- NOTE | 2024-02-02 05:16 | PTCARENOTE ---
still retaining co2 on blood gas, 02 low, Ed CTPA aware, BIPAP settings increased to 20/15 by RT.
[2024-02-02] MEDS: CALCIUM CHLORIDE 10% SYRINGE 50 ML IV (05:29)
[2024-02-02] MEDS: CALCIUM CHLORIDE 10% SYRINGE 50 MG IV (05:29)
[2024-02-02] MEDS: TYLENOL PO ×2 (06:14→23:04)
[2024-02-02 06:18] LABS: Glucose - Point of Care 86 mg/dl (70-99)
[2024-02-02] MEDS: LEVOPHED 250 IV (07:18)
[2024-02-02 07:20] LABS: Glucose - Point of Care 102 mg/dl (70-99)
--- NOTE | 2024-02-02 07:53 | W.PN.CD ---
Today's Communication / Plan
-
Supportive care
-Wean off pressors. Assess chest tube and remove as needed.
-Continue BiPAP. Wean off as tolerated to face mask and oxygen. Increasing incentive spirometry
Impression / Plan
-
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
-Emergency repair (#23 bio Bentall), ligation of LM/R and ostia, C
-Now extubated.
-Case complicated by coagulopathy which is improving
-Wean off dobutamine.
-Consider d/c of chest tubes
-Continue supportive care.
Paroxysmal atrial fibrillation--now with post op A fib with RVR
-Cryoablation in 2016
-[id number] score at least 3 (vascular disease, female gender, age 73)
-not currently on OAC with complex surgery and coagulopathy
-Continue IV amiodarone.
Hypertension, now hypotensive, all agents on hold with vasopressor support
HLD, goal LDL <55, resume rosuvastatin when able
Hypothyroidism on levothyroxine
CCT 31 minutes
Physical Exam
Vital Signs/Labs
Vital Signs
Temp Pulse Resp BP Pulse Ox
98.5 F 94 16 97/68 95
02/02/24 06:00 02/02/24 06:00 02/02/24 06:00 02/02/24 06:00 02/02/24 06:00
02/01/24 02/02/24 02/03/24
06:59 06:59 06:59
Actual Weight 106.6 kg 105.1 kg
02/02/24 03:46
02/02/24 03:46
PT 16.3 Sec (11.4-14.6) H 01/31/24 10:29
INR 1.31 01/31/24 10:29
APTT 37.1 Sec (23.4-35.0) H 01/31/24 10:29
Magnesium 2.2 mg/dl (1.6-2.3) 02/02/24 03:46
Physical Exam
Constitutional: No acute distress
EENT: Anicteric
Cardiovascular: Rhythm/rate is irregular, JVD present and Systolic murmur present
Respiratory: Crackles Present and Rhonchi Present
GI: Soft, Non tender and Normal bowel sounds
Neuro/Psych: Alert and Motor deficits absent
Data Reviewed
-
Date of Service: February 02, 2024
Medical Decision Making: Reviewed Test Results, Independent Historian Assessment and Test Interpretation
EKG: Tracing Personally Visualized and interpreted
Echo: Report Reviewed by me
X-Ray/CT/US/MRI/NUC/PET: Image Personally Visualized and interpreted
Labs: Labs Reviewed by me
Old Records: Reviewed
Critical Care Time (in minutes): 31
--- NOTE | 2024-02-02 08:05 | W.PN.NEURO.1 ---
Today's Communication / Plan
-
-Continue Levetiracetam at 500 mg q12hr, will consider coming off over next few days
-Follow mental status
Neuro Assessment/Plan
Assessment
Patient is a 73-year-old woman with a past no history of atrial fibrillation, coronary artery disease who underwent cardiac catheterization on 01/28 was not successful in PTCA of the LAD due to severe calcifications and was complicated by left
anterior artery descending dissection. She had intra-aortic balloon pump placed. She had further complications of ascending type a aortic dissection with CABG and underwent operative repair of this along with repair of common femoral artery from
vascular surgery. She did have intraoperature cirulatory arrest and hypothermia.
Postoperatively the patient has been intubated and being manage medically. She has been following commands and had an episode this afternoon where she seemed to become poorly responsive and then had a short-lived bilateral type raising of the arms
without repetitive clonic activity and after couple minutes seem to come to and obey commands once again. There was no overt tonic posturing seen or unilateral features of the arms or gaze preference seen.
Impressions
1. Possible short-lived seizure. Now obeying commands. Other possibilities would include agitation and/or encephalopathy or nonepileptic myoclonus.
2. Atrial fibrillation
3. Coronary artery disease
4. Dissection of coronary artery complicated by aortic dissection with repair as well as CABG, as well as right femoral artery repair
CT head non contrast no abnormalities seen
Subjective/Objective
Subjective Data
Date of Service: February 02, 2024
No acute events, on CPAP this morning, obeying commands, some mild confusion, no overt seizure activity witnessed or reported
Objective Data
Vital Signs
Temp Pulse Resp BP Pulse Ox
98.5 F 94 16 97/68 95
02/02/24 06:00 02/02/24 06:00 02/02/24 06:00 02/02/24 06:00 02/02/24 06:00
Lab Results
02/02/24 03:46
02/02/24 03:46
PT 16.3 Sec (11.4-14.6) H 01/31/24 10:29
INR 1.31 01/31/24 10:29
APTT 37.1 Sec (23.4-35.0) H 01/31/24 10:29
Sodium 138 mmol/L (135-145) 02/02/24 03:46
Potassium 3.9 mmol/L (3.5-5.1) 02/02/24 03:46
BUN 28 mg/dl (7-17) H 02/02/24 03:46
Glucose 95 mg/dl (70-99) 02/02/24 03:46
Calcium 8.6 mg/dl (8.4-10.2) 02/02/24 03:46
Phosphorus 4.9 mg/dl (2.5-4.5) H 01/31/24 09:38
Patient Allergies
adhesive Allergy (Verified 01/29/24 08:06)
Rash
chlorhexidine Allergy (Verified 01/29/24 08:06)
Hives
levofloxacin Allergy (Verified 01/29/24 08:06)
affects tendons
pravastatin Allergy (Verified 01/29/24 07:54)
Unknown
Review of Systems
-
Unable to obtain full review of systems at this time due to: Lethargy
Physical Exam
-
General: Comfortable and Obese
Eyes: No Ptosis
HEENT: Normocephalic
Neck: No Bruits Bilaterally
Respiratory: No Dyspnea
Cardiac: No Murmur and S1/S2
GI: Soft and Non-tender
Skin: Warm and Dry; Negative Rash
Extremities: Edema +1
Extended Neurological Exam
Attention Span & Concentration: Other (Drowsy, eyes open and obey simple commands consistently, comprehension intact, mild confusion and and disorientation, decreased memory and difficulty with complex tasks)
Memory: Reduced
Tremor: Hand Tremor Absent
Involuntary Movement: None
Speech: Quality Unremarkable and Quantity Unremarkable; Negative Expressive Aphasia or Receptive Aphasia
Cranial Nerve II: Left Eye: Pupillary Reactivity Unremarkable, Pupillary Size Unremarkable and Visual Haney Grossly Intact
Cranial Nerve II: Right Eye: Visual Haney Grossly Intact
Cranial Nerves III, IV, : Extraocular Movement: Extraocular Movement Full in all Directions
Muscle Strength, Overall: Other (Obeys commands in all extremities 5/5 arm flexion, 3/5 efforts of hip flexion bilaterally)
Pronator Drift: No Drift in Upper Extremities
Data Reviewed
-
CT Head: Report Reviewed and Image Reviewed
EEG: Report Reviewed
Labs: Report Reviewed
[2024-02-02] MEDS: PROTONIX 40 MG PO (08:56)
[2024-02-02] MEDS: CRESTOR 10 MG PO (08:56)
[2024-02-02] MEDS: TYLENOL 1000 MG PO (08:56)
[2024-02-02] MEDS: MAGNESIUM OXIDE 500 MG PO (08:56)
[2024-02-02] MEDS: PACERONE 200 MG PO (09:05)
[2024-02-02] MEDS: SENOKOT-S 1 TABLET PO (09:06)
[2024-02-02] MEDS: KEPPRA 500 MG IV ×2 (09:06→21:28)
[2024-02-02] MEDS: LIDOCAINE 4% PATCH 1 PATCH TOPICAL (09:06)
[2024-02-02] MEDS: BACTROBAN 2% OINTMENT 1 APPLIC NASAL (09:08)
[2024-02-02] MEDS: PLAVIX TUBE (09:09)
[2024-02-02 09:22] LABS: Glucose - Point of Care 104 mg/dl (70-99)
[2024-02-02] MEDS: NSS IV (09:38)
[2024-02-02] MEDS: KCL 100 IV (10:03)
--- NOTE | 2024-02-02 10:11 | W.PN.INTV ---
Today's Communication / Plan
Recommendations
Remove from BiPAP as she is awake and answering questions appropriately; trend blood gas and consider BiPAP with sleep tonight if pCO2 continues to rise with downtrending pH
Check a daytime blood gas to assess for OHS - she may need to go home with BiPAP
Maintain net negative fluid as tolerated given elevated PADP/CVP seen at bedside Jayess
Pain control
Maintain MAP>65
prn duonebs
Assessment
-
Assessment: 73-year-old F with a PMHx of A-fib s/p cryoablation (2015), hypothyroidism, hypertension, hyperlipidemia, spinal stenosis and asthma who initially presented with worsening angina and left heart catheterization. LHC performed on
01/29/2024 and there was great difficulty in advancing equipment to predilate the lesion. Patient unfortunately developed an LAD dissection, and patient had an intra-aortic balloon pump placed by vascular surgery for hemodynamic support.
Cardiothoracic surgery consulted, and patient went to the OR where initial EUSEBIA showed moderate�severe AI with flap of type a aortic dissection visible in the ascending aorta and proximal arch. There also was extensive dissection involving the
entire aortic root. On 01/28/2023, patient underwent emergency repair of her type a dissection, ligation of LM and RM ostia, CABG x 3 with deep hypothermic circulatory arrest and antegrade cerebral perfusion. At the procedures end, pt with open
chest due to ongoing coagulopathy and open chest dressing was placed. Patient required multiple blood transfusions including 10 units PRBC, 4 units platelets, 8 units FFP, and 9 mg of factor VIIa. There were no immediate complications
postoperatively, and patient was transferred to the CVICU for further care with critical care services consulted for additional management/recommendations.
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
Impression:
#CAD s/p LHC c/b ATAAD involving LM/RM/aortic root and extending to proximal aortic arch s/p repair with Bio-Bentall, ligation of LM/RM ostia and CABG x3 (POD#4)
#Coagulopathy due to surgery - resolved
#Open chest s/p chest closure (POD#2)
#Ventilator dependent respiratory failure - patient extubated on 01/31/2024
#Lactic acidosis - resolved
#Hypernatremia - resolved
#Anemia
#Thrombocytopenia
#Transaminitis - improving
Plan:
Patient remained on BiPAP this AM and was raised from 18/02 to given slight worsening pCO2 levels seen this AM
Despite her pCO2 levels increasing, this is negligable as her pH remains well compensated at 7.4 - 7.41
Remove BiPAP from patient given she is now awake and answering questions appropriately, and would re-check blood gas later this afternoon to assess stability of pH and pCO2
If repeat blood gas shows stable values, then would use BiPAP with sleep
The issue is that she is not eating and may need an NGT. If NGT is placed, first need to make sure that pH and pCO2 are stable --> if stable x 2 blood gas measurements over a 6-12 hour period, then could defer use of BiPAP and closely monitor with
end-tidal CO2 and serial blood gas measurements
Wean supplemental flow rate to maintain SpO2 >94%
Check a daytime blood gas to assess for OHS as she may need to go home with BiPAP
prn nebulized bronchodilators
Pulmonary artery catheter parameters will be followed
Pressors/antihypertensive/inotropes/diuretics will be provided as needed
Maintain MAP>65
Replete electrolytes with K>4, Mg>2
Monitor chest tube output (L+R pleural chest tubes + mediastinal chest tubes x2)
Monitor hemoglobin
Monitor platelet count and coags
Transfuse blood product if needed to keep Hb>8g/dL and plt>50k
CT surgery managing chest tubes
Monitor blood sugar with goal BG 140-180mg/dL
Continue insulin gtt
Aspiration precautions
VAP prevention protocol
DVT prophylaxis
Early nutrition
Early mobilization
Critical care statement: A total of 39 minutes of critical care time was provided for this patient today. This includes management of ventilator, spontaneous breathing trial, arterial blood gases, pressors, of unstable vital signs, evaluation of the
patient at bedside, reviewing the patient's pertinent medical records including radiographs, microbiology, laboratory evaluations, and discussion with primary team and critical care nursing.
Data:
CXR 02-02-2024:
1. Postoperative from surgical aortic valve replacement and CABG surgery with bilateral chest tubes, a pulmonary arterial catheter, and nasogastric feeding tube in place.
2. Mild elevation of the right hemidiaphragm.
3. No radiographic evidence for pleural effusion or pneumothorax.
CXR 02-01-2024:
1. Interval extubation.
2. Postoperative from surgical aortic valve replacement and CABG surgery.
3. Pulmonary arterial catheter and chest tubes remaining in place.
4. Moderately decreased lung volumes with left to right mediastinal shift.
5. Small left pleural effusion.
CXR 01-31-2024: Endotracheal tube and right internal jugular Jayess-Phillip catheter remain in place. No pneumothorax identified. The cardiomediastinal margins are stable. No evidence to suggest congestive heart failure. Minor atelectasis in the medial
left lung base.
CXR 01-30-2024: Postoperative changes; No pneumothorax
Subjective Dataa
Subjective Data
Date of Service:
Date of Service: February 02, 2024
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
Subjective:
Patient seen this morning. Family members at bedside � all questions were answered. Pt remains on BiPAP at 20/15 bled with 6L/min. pCO2 slightly worse this morning however pH remains well compensated at 7.41. Patient easily arousable this
morning although flat affect. In no acute distress, and denies pain. She says she is tired. Current BP via A-line is 120/60, HR: 93, SpO2 97% and PAP 32/20. She remains on insulin drip. No acute events reported overnight.
Review of Systems
General: Other (Negative unless mentioned above)
Objective Data
Data Reviewed
Vital Signs / I&O / Oxygen:
Vital Signs
Temp Pulse Resp BP Pulse Ox
98.5 F 96 12 140/75 95
02/02/24 08:11 02/02/24 09:05 02/02/24 08:00 02/02/24 09:05 02/02/24 08:11
Intake and Output
02/01/24 02/02/24 02/03/24
06:59 06:59 06:59
Intake Total 4247.0 / 4345.1 1841.2 / 1841.2 105.2 / 105.2
Output Total 3935 / 4235 3670 / 3670 190 / 190
Balance 312.0 / 110.1 -1828.8 / -1828.8 -84.8 / -84.8
SaO2 [CPAP/PSV] 99
SaO2 [SIMV] 98
SaO2 95
Nasal Cannula flow liters per 6
minute
Physical Exam
General: Respiratory Distress (negative) and Comfortable
HEENT: Normocephalic and Anicteric
Cardiovascular: Irregular Rhythm, Peripheral Edema (negative) and Other (Normal rate)
Respiratory: Wheeze (negative), Crackles (negative), Rhonchi (negative), Non-Labored Respirations (negative), Chest Tube (x4 (left and right pleural and mediastinal x2)) and Other (Course breath sounds heard bilaterally)
GI: Soft, Non Distended and Non Tender
Neurology: Awake, Tremors (negative) and Other (sleepy but easily arousable and answering questions appropriately)
Skin: Warm and Dry
Labs/Micro/Reports
Lab Data
02/02/24 03:46
Laboratory Results
02/01/24 02/01/24 02/01/24
11:04 12:00 18:31
pH 7.39 Cancelled 7.40
pCO2 49 H Cancelled 49 H
pO2 108 Cancelled 88
HCO3 29.7 H Cancelled 30.4 H
O2 Delivery Level Not Reportable Cancelled
02/02/24
03:46
pH 7.41
pCO2 52 H
pO2 76 L
HCO3 33.0 H
O2 Delivery Level
[2024-02-02 10:14] LABS: Hemoglobin 8.4 g/dL (12.0-16.0); Mean Corp Hgb Conc. 33.6 g/dL (33.0-37.0); Mean Corpuscular Hgb 30.5 pg (27.0-31.0); Mean Corpuscular Volume 90.9 fL (81.0-99.0); Platelet Count 84 10^3/uL (130-400); Red Blood Cell Count 2.75 10^6/uL (4.20-5.40); Red Cell Dist. Width 15.4 % (11.5-14.5); White Blood Cell Count 17.2 10^3/uL (4.8-10.8)
[2024-02-02] MEDS: LOW STRENGTH ASPIRIN 81 MG TUBE (10:15)
[2024-02-02 10:18] LABS: B.E. 6.5 mmol/L; HCO3 32.2 mmol/L (21-28); O2 Saturation % 98.6 % (94-98); PCO2 52 mmHg (32-35); PO2 111 mmHg (83-108)
[2024-02-02] MEDS: ASPIRIN RECTAL (11:03)
[2024-02-02 11:42] LABS: Glucose - Point of Care 102 mg/dl (70-99)
--- NOTE | 2024-02-02 12:13 | RESPNOTE ---
Patient removed from Bipap at this time- Dr Graham present at the time-- Place on 6 liter NC 99% HR 92. Redness noted on bridge of nose family bedside stated ' patient has allergy to tape and adhesive.' Will bring under the nose mask to replace
full face mask.
[2024-02-02] MEDS: FERRLECIT 110 MG IV (14:11)
[2024-02-02] MEDS: LOPRESSOR 5 MG IV (14:12)
[2024-02-02] MEDS: PACERONE PO ×2 (14:13→23:04)
[2024-02-02 14:21] LABS: Glucose - Point of Care 99 mg/dl (70-99)
[2024-02-02 14:32] LABS: HCO3 31.6 mmol/L (21-28); O2 Saturation % 98.9 % (94-98); PCO2 51 mmHg (32-35); PO2 139 mmHg (83-108)
[2024-02-02] MEDS: CORDARONE 518 MG IV (17:48)
[2024-02-02] MEDS: NOVOLOG FLEXPEN-MODERATE RESISTANCE SC (17:52)
[2024-02-02 17:53] LABS: Glucose - Point of Care 129 mg/dl (70-99)
[2024-02-02] MEDS: LOPRESSOR IV (18:38)
--- NOTE | 2024-02-02 20:00 | PTCARENOTE ---
assumed care of patient @ 1900. received pt laying in bed, AOX2. Forgetful to time, however mental status is markedly improved , able to fully follow commands and speak in full sentences. Afib on monitor HR 80s-100s. V wire to backup VVI. BP
hypertensive, metoprolol ordered q6. PAP 30s/20s, CVP ~ 15. weak pedals, +1 generalized edema. Lungs clear, diminished on 5L NC. Worked with IS,able to get less then 500. Belly hypoactive, nontender, obese. martino present draining clear yellow urine.
all surgical sites CDI. L radial a line positional, R IJ cordis with swan at 47, L wrist PIV all patent. amio at 0.5. pt denies pain or nausea, resting comfortably with family at bedside.
[2024-02-02] MEDS: LOPRESSOR 2.5 MG IV (21:28)
--- NOTE | 2024-02-02 22:00 | PTCARENOTE ---
pt placed on BIPAP 09/11 by RT. tolerating well, will check ABG in AM
[2024-02-02] MEDS: OFIRMEV 100 IV (22:08)
[2024-02-02] MEDS: MAGNESIUM OXIDE PO (23:03)
[2024-02-02] MEDS: SENOKOT-S PO (23:04)
[2024-02-02 23:59] LABS: Glucose - Point of Care 153 mg/dl (70-99)
[2024-02-03] VITALS (33 sets, daily range): BP systolic 95–147; BP diastolic 53–89; PULSE 2–85; O2SAT 93; BMI 40.5
--- NOTE | 2024-02-03 | PTCARENOTE ---
pt sleeping between care, no change in assessment.
[2024-02-03] MEDS: LOPRESSOR 2.5 MG IV ×4 (00:01→16:30)
--- NOTE | 2024-02-03 04:00 | PTCARENOTE ---
labs drawn and sent, pt awake and alert, BIPAP mask removed
--- NOTE | 2024-02-03 04:18 | W.PN.CT ---
Today's Communication / Plan
-
-No major issues overnight. Hemodynamically stable. Pt appears more awake and alert
-Moving all extremities appropriately, alert and oriented x 2, not fully oriented to time. Avoid narcotics/sedatives if possible
-Weaned off dobutamine gtt on 02/01/24
-Currently on Amiodarone gtt (for a-fib), holding bumex gtt
-Monitor u/o, has martino catheter, 1245 mL/24hrs. Monitor cr, 1.3, was 1.5 yesterday, 0.6-0.8 preop
-Consider d/c of Keppra (decreased from 1g BID to 500 mg BID), no seizures per EEG, Neurology following
-Consider d/c of chest tubes, cxr looks good, drainage: 2meds 20/40, R/L pleurals 45/80. D/C of chest tubes should help with resolution of hypercapnia
-Retaining CO2 and on BIPAP @ night, settings adjusted to 12/5 per Pulmonary. F/U ABG
-Consider d/c of a-line, positional with erroneous BP readings
-Consider d/c of swan, last CI 2.06
-Tolerating resumption of low dose BB
-Monitor plts 91K today, was 80/84K yesterday, on ASA, Plavix currently on hold
-PT/OT f/u, deconditioned/OOB into chair/Ambulate as tolerated
-Encourage use of IS
-Cont. martino catheter another day
-Maintain temporary pacer wires (will cut before d/c )
-Cont. DVT prophylaxis with SCDs
-Will discuss rout of nutritional intake, failed swallow evaluation yesterday
Assessment / Plan
-
- s/p Emergency repair of ATAAD w/ #23 Bio-bentall, ligation of LM and RM ostia, CABG x 3 (PRINCESS to LAD, GSV to OM, GSV to PDA); DHCA w/ ACP, Open chest for ongoing coagulopathy 01/29/[address] Carroll - POD #5
-s/p R femoral IABP removal & arterial repair of common femoral artery via cutdown & L femoral IABP insertion 01/29/[address] Alarcon
-s/p chest closure by Dr. Myles on 01/31/24, pod #3
- CAD s/p aborted PCI c/b LM dissection extending retrograde to Type A dissection - now s/p Bentall with hemiarch replacement, cabg x3 on 01/29/24
- IABP removed 01/30/24
- hemorrhagic shock c/b coagulopathy
- AF s/p cryo ablation 2015
- HTN
- HLD
- obesity
- hyperparathyroidism s/p parathyroidectomy
- spinal stenosis
- osteoporosis
- multiple tendon repairs
- Acute postop blood loss anemia/ hemorrhagic shock, s/p multiple transfusions
- Acute postop thrombocytopenia/ coagulopathy
- Acute postop hypervolemia/volume overload -on Bumex drip
- Acute postop metabolic alkalosis - tx with Diamox
- Acute postop suspected seizure- followed by Neurology, started on [place], Head CT without acute findings
- Acute postop a-fib with RVR - tx with Amio bolus x2 and drip
- YARA
- Acute postop hypocalcemia - repleted
- Acute postop hypercapnia
- Acute postop pulmonary insufficiency
Discussed patient care with: Cardiology, Nursing, Respiratory Therapy, Pharmacy and Care Team
Subjective
Procedure
-s/p Emergency repair of ATAAD w/ #23 Bio-bentall, ligation of LM and RM ostia, CABG x 3 (PRINCESS to LAD, GSV to OM, GSV to PDA); DHCA w/ ACP, Open chest for ongoing coagulopathy on 01/29/[address] Carroll
-s/p chest closure by Dr. Myles on 01/31/24
-
Date of Service: February 03, 2024
Pt c/o mild incisional pain, otherwise feels well
Objective Data
-
PT 16.3 Sec (11.4-14.6) H 01/31/24 10:29
INR 1.31 01/31/24 10:29
APTT 37.1 Sec (23.4-35.0) H 01/31/24 10:29
Vital Signs
Vital Signs
Temp Pulse Resp BP Pulse Ox
98.5 F 76 13 111/73 92
02/03/24 01:00 02/03/24 01:00 02/03/24 01:00 02/03/24 01:00 02/03/24 01:00
CT Intake/Output/Weight
02/02/24 02/02/24 02/03/24
06:59 18:59 06:59
Intake Total 556.3 / 1841.2 490.5 / 807.4 316.9 / 807.4
Output Total 1475 / 3670 705 / 1090 385 / 1090
Balance -918.7 / -1828.8 -214.5 / -282.6 -68.1 / -282.6
SaO2: 92 (BIPAP 12/5)
Physical Exam
-
General: Awake and Oriented (not fully oriented to time)
Cardiovascular: Regular rate & rhythm, No Murmurs, No Rub and No Gallop
Respiratory: Decreased Breath Sounds (at bases, otherwise clear)
Sternum: Stable
Incision: Clean, Dry, Intact and Dressing Intact
Extremities: Edema +1
Data Reviewed
-
Lab Results: Results Reviewed
Medications: Active Meds Reviewed
Chest X-Ray: Report Reviewed and Image Reviewed
ECG: Report Reviewed and Image Reviewed
[2024-02-03 04:26] LABS: B.E. 4.6 mmol/L; HCO3 30.3 mmol/L (21-28); Ionized Calcium 1.22 mMOL/L (1.15-1.33); PCO2 50 mmHg (32-35); PO2 91 mmHg (83-108); pH 7.39 (7.35-7.45)
[2024-02-03 04:34] LABS: Hematocrit 27.6 % (37.0-47.0); Hemoglobin 8.8 g/dL (12.0-16.0); Mean Corp Hgb Conc. 31.9 g/dL (33.0-37.0); Mean Corpuscular Hgb 29.9 pg (27.0-31.0); Mean Corpuscular Volume 93.9 fL (81.0-99.0); Mean Platelet Volume 10.8 fL (7.4-10.4); Platelet Count 91 10^3/uL (130-400); Red Blood Cell Count 2.94 10^6/uL (4.20-5.40); Red Cell Dist. Width 14.9 % (11.5-14.5); White Blood Cell Count 17.8 10^3/uL (4.8-10.8)
[2024-02-03 04:53] LABS: Blood Urea Nitrogen 43 mg/dl (7-17); Carbon Dioxide 28 mmol/L (22-30); Chloride 103 mmol/L (98-107); Estimated Creatinine Clearance 45 ml/min; Glucose 150 mg/dl (70-99); Magnesium 2.4 mg/dl (1.6-2.3); Sodium 138 mmol/L (135-145); eGFR 43.15
[2024-02-03] MEDS: NSS IV (06:14)
[2024-02-03] MEDS: TYLENOL PO ×2 (06:14→14:24)
--- NOTE | 2024-02-03 06:31 | PTCARENOTE ---
pt tolerating ice chips well, tolerated 3oz water well, resting comfortably
[2024-02-03] MEDS: NOVOLOG FLEXPEN-MODERATE RESISTANCE SC ×3 (09:00→14:25)
[2024-02-03] MEDS: PACERONE PO ×2 (09:01→14:24)
[2024-02-03] MEDS: MAGNESIUM OXIDE PO ×2 (09:01→20:30)
[2024-02-03] MEDS: LIDOCAINE 4% PATCH 1 PATCH TOPICAL (09:01)
[2024-02-03] MEDS: CRESTOR PO (09:01)
[2024-02-03] MEDS: KEPPRA 500 MG IV ×2 (09:01→20:30)
[2024-02-03] MEDS: PLAVIX TUBE (09:02)
[2024-02-03] MEDS: PROTONIX PO (09:02)
[2024-02-03] MEDS: SENOKOT-S PO ×2 (09:02→20:31)
--- NOTE | 2024-02-03 09:24 | PTCARENOTE ---
assumed care of pt from previous shift RN, PT is lethargic, opens eyes to voice, able to state name// place w slow speech. Pupils +3, equally reactive to light, LOVING to command. Afib on tele w HR 70-80, + peripheral pulses, trace edema to
bilateral upper and lower extremities. Epicardial V wire set to a backup of 30/10. Right IJ cordis w swan floated to 47, left radial baron leveled and zeroed. BP 126/74, pap 36/17, cvp 13, CO 4.33/ CI 2.16. Lungs diminished bilaterally, pox 95% on
4L NC. Coughing and deep breathing encouraged. Pt unable to participate w IS d/t lethargy. CT x4 w minimal amount of light red drainage. Martino draining yellow. +bs, NPO awaiting speech evaluation. Pt was able to tolerate PT/OT ROM exercises. Pt
turned from side to side. New meplex foam placed to sacrum, skin intact on back/heels/elbows. Lotion to back. Foam pads to bilateral heels. Mouth and martino care completed. Plan of care reviewed w the patient.
DRIPS: Amiodarone 0.5mg/min
--- NOTE | 2024-02-03 09:27 | W.PN.CD ---
Today's Communication / Plan
-
-Holding Bumex drip. Removing [place], A-line and chest tubes.
-Likely will start metoprolol tomorrow
Impression / Plan
-
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
-Emergency repair (#23 bio Samall), ligation of LM/R and ostia, C
-Now extubated.
-Case complicated by coagulopathy which is improving
-Off dobutamine.
-d/c of chest tubes
-Poor correlation with A-line and peripheral blood pressure-will likely remove A-line as well.
-Continue supportive care.
Paroxysmal atrial fibrillation--now with post op A fib with RVR
-Cryoablation in 2016
-[id number] score at least 3 (vascular disease, female gender, age 73)
-not currently on OAC with complex surgery and coagulopathy
-Continue IV amiodarone.
Hypertension, now hypotensive, all agents on hold with vasopressor support
HLD, goal LDL <55, resume rosuvastatin when able
Hypothyroidism on levothyroxine
CCT 32 minutes
Physical Exam
Vital Signs/Labs
Vital Signs
Temp Pulse Resp BP Pulse Ox
99.3 F 86 23 126/73 94
02/03/24 09:00 02/03/24 09:00 02/03/24 09:00 02/03/24 09:00 02/03/24 09:00
02/02/24 02/03/24 02/04/24
06:59 06:59 06:59
Actual Weight 105.1 kg 107 kg
02/03/24 04:15
02/03/24 04:15
PT 16.3 Sec (11.4-14.6) H 01/31/24 10:29
INR 1.31 01/31/24 10:29
APTT 37.1 Sec (23.4-35.0) H 01/31/24 10:29
Magnesium 2.4 mg/dl (1.6-2.3) H 02/03/24 04:15
Physical Exam
Constitutional: No acute distress and Comfortable
EENT: Anicteric and Moist mucous membranes
Cardiovascular: Rhythm & rate is regular and Pedal edema is absent
Respiratory: Respiratory effort normal, Lungs clear to auscul. and Wheeze Absent
GI: Soft and Non tender
Neuro/Psych: Alert, Oriented and AO x 3
Data Reviewed
-
Date of Service: February 03, 2024
Medical Decision Making: Reviewed Test Results and Independent Historian Assessment
EKG: Tracing Personally Visualized and interpreted
Echo: Report Reviewed by me
Labs: Labs Reviewed by me
Old Records: Reviewed
--- NOTE | 2024-02-03 11:05 | W.PN.INTV ---
Today's Communication / Plan
Recommendations
BiPAP with sleep tonight, but tomorrow check NOX study on supplemental O2 off BiPAP and check blood gas the morning after to assess if she truly needs BiPAP upon discharge
Maintain net negative fluid as tolerated given elevated PADP/CVP seen on bedside [place]
Pain control
Maintain MAP>65
prn duonebs
Retirement Village Manager/pulmonary service will continue to briefly follow given her hypercapnic respiratory failure with possible need for BiPAP upon discharge
Assessment
-
Assessment: 73-year-old F with a PMHx of A-fib s/p cryoablation (2015), hypothyroidism, hypertension, hyperlipidemia, spinal stenosis and asthma who initially presented with worsening angina and left heart catheterization. [facility] performed on
01/29/2024 and there was great difficulty in advancing equipment to predilate the lesion. Patient unfortunately developed an LAD dissection, and patient had an intra-aortic balloon pump placed by vascular surgery for hemodynamic support.
Cardiothoracic surgery consulted, and patient went to the OR where initial [place] showed moderate�severe AI with flap of type a aortic dissection visible in the ascending aorta and proximal arch. There also was extensive dissection involving the
entire aortic root. On 01/28/2023, patient underwent emergency repair of her type a dissection, ligation of LM and RM ostia, CABG x 3 with deep hypothermic circulatory arrest and antegrade cerebral perfusion. At the procedures end, pt with open
chest due to ongoing coagulopathy and open chest dressing was placed. Patient required multiple blood transfusions including 10 units PRBC, 4 units platelets, 8 units FFP, and 9 mg of factor VIIa. There were no immediate complications
postoperatively, and patient was transferred to the CVICU for further care with critical care services consulted for additional management/recommendations.
Chronic conditions DIRECTOR OF TRAUMA: Paroxysmal A-fib s/p cryoablation (2015), hypertension, carotid artery atherosclerosis, asthma, hyperlipidemia, obesity, hyperparathyroidism s/p parathyroidectomy, hypothyroidism, spinal stenosis
Impression:
#CAD s/p LHC c/b ATAAD involving LM/RM/aortic root and extending to proximal aortic arch s/p repair with Bio-Bentall, ligation of LM/RM ostia and CABG x3 (POD#5)
#Coagulopathy due to surgery - resolved
#Open chest s/p chest closure (POD#3)
#Ventilator dependent respiratory failure - patient extubated on 01/31/2024
#Lactic acidosis - resolved
#Hypernatremia - resolved
#Anemia
#Thrombocytopenia
#Transaminitis - improving
#Obesity hypoventilation syndrome
Plan:
Patient doing well and has been using BiPAP with sleep on 09/11
Continue BiPAP with sleep but to assess if patient truly needs BiPAP, would favor not using BiPAP x 1 night and then checkk AM blood gas to assess needs. Would hold off on BiPAP on evening of 02/04/2024 with AM ABG. Can do a nocturnal oximetry test
tomorrow night as well
Wean supplemental flow rate to maintain SpO2 >94%
prn nebulized bronchodilators
Consider reducing keppra dose to see if this helps her lethargy --> would defer this decision to neuro
R-IJ cordis removal as per CT surgery team
Maintain MAP>65
Replete electrolytes with K>4, Mg>2
Monitor chest tube output (L+R pleural chest tubes + mediastinal chest tubes x2)
Monitor hemoglobin
Monitor platelet count and coags
Transfuse blood product if needed to keep Hb>8g/dL and plt>50k
CT surgery managing chest tubes
Monitor blood sugar with goal BG 140-180mg/dL
Insulin supplementation as needed
Aspiration precautions
DVT prophylaxis
Early nutrition
Early mobilization
Retirement Village Manager/pulmonary service will continue to follow along given active respiratory/pulmonary management with her hypercapnic respiratory failure.
Total time spent today was 55 minutes for this encounter. Time includes reviewing laboratory test/imaging results, reviewing pertinent medical records, obtaining and reviewing medical history, performing an appropriate exam, ordering medications,
tests and procedures. Time also includes documentation of this encounter, coordinating patient care and communicating with other healthcare professionals. Total time does not include separately billed tests performed on this date of service.
Data:
CXR 02-03-2024:
1. Postoperative from surgical aortic valve replacement and CABG surgery with a pulmonary arterial catheter and bilateral chest tubes remaining in place.
2. Moderate enlargement of the cardiac silhouette which appears unchanged.
3. Small bilateral pleural effusions and mild bilateral lower lobe subpleural subsegmental atelectasis.
4. Interval removal of a nasogastric feeding tube.
CXR 02-02-2024:
1. Postoperative from surgical aortic valve replacement and CABG surgery with bilateral chest tubes, a pulmonary arterial catheter, and nasogastric feeding tube in place.
2. Mild elevation of the right hemidiaphragm.
3. No radiographic evidence for pleural effusion or pneumothorax.
CXR 02-01-2024:
1. Interval extubation.
2. Postoperative from surgical aortic valve replacement and CABG surgery.
3. Pulmonary arterial catheter and chest tubes remaining in place.
4. Moderately decreased lung volumes with left to right mediastinal shift.
5. Small left pleural effusion.
CXR 01-31-2024: Endotracheal tube and right internal jugular [place] catheter remain in place. No pneumothorax identified. The cardiomediastinal margins are stable. No evidence to suggest congestive heart failure. Minor atelectasis in the medial
left lung base.
CXR 01-30-2024: Postoperative changes; No pneumothorax
Subjective Dataa
Subjective Data
Date of Service:
Date of Service: February 03, 2024
Chief Complaint: Retirement Village Manager Follow Up
Subjective:
Patient seen today. Wore BiPAP overnight at 12/5 bled with 6 L/min oxygen. Blood gas this morning shows stable hypercapnia. Patient remains lethargic and sleepy. Heart rate 78, BP 101/89, saturating 94% on 2 L/min nasal cannula. She denies
headache, shortness of breath, fevers or chills.
Review of Systems
General: Other (Negative unless mentioned above)
Objective Data
Data Reviewed
Vital Signs / I&O / Oxygen:
Vital Signs
Temp Pulse Resp BP Pulse Ox
99 F 70 30 105/62 93
02/03/24 12:00 02/03/24 14:00 02/03/24 14:00 02/03/24 14:00 02/03/24 14:00
Intake and Output
02/02/24 02/03/24 02/04/24
06:59 06:59 06:59
Intake Total 1841.2 / 1841.2 910.8 / 947.5 330.2 / 330.2
Output Total 3670 / 3670 1355 / 1435 495 / 495
Balance -1828.8 / -1828.8 -444.2 / -487.5 -164.8 / -164.8
SaO2 [CPAP/PSV] 99
SaO2 [SIMV] 98
SaO2 93
Nasal Cannula flow liters per 2
minute
Physical Exam
General: Respiratory Distress (negative) and Comfortable
HEENT: Normocephalic and Anicteric
Cardiovascular: Irregular Rhythm, Peripheral Edema (negative) and Other (Normal rate)
Respiratory: Wheeze (negative), Crackles (negative), Rhonchi (negative), Non-Labored Respirations (negative), Chest Tube (x4 (left and right pleural and mediastinal x2)) and Other (Course breath sounds heard bilaterally)
GI: Soft, Non Distended and Non Tender
Neurology: Awake, Tremors (negative) and Other (sleepy but easily arousable and answering questions appropriately)
Skin: Warm and Dry
Labs/Micro/Reports
Lab Data
02/03/24 04:15
02/03/24 04:15
Laboratory Results
02/03/24 02/03/24
04:15 06:00
pH 7.39 Cancelled
pCO2 50 H Cancelled
pO2 91 Cancelled
HCO3 30.3 H Cancelled
O2 Delivery Level Cancelled
[2024-02-03] MEDS: CORDARONE 103 MG IV (11:16)
[2024-02-03] MEDS: ASPIRIN 300 MG RECTAL (12:53)
[2024-02-03] MEDS: PROTONIX IV 40 MG IV (12:53)
[2024-02-03] MEDS: NSS (PRESERVATIVE FREE) 10 ML IV (12:54)
--- NOTE | 2024-02-03 13:16 | PTCARENOTE ---
maribel Williamson and gunner removed as ordered. Terewick placed. Family at bedside and updated on plan of care.
[2024-02-03] MEDS: FERRLECIT 110 MG IV (14:38)
--- NOTE | 2024-02-03 16:02 | PTOTSP ---
Speech Therapy
Presentation: Patient's speech and language appeared to be limited in length but intelligible. Patient's voice was weak.
Patient was recently extubated (01/30) and dubhoff was removed (02/01). Patient has been NPO since.
GERIATRIC PSYCHIATRIST completed oral care with oral suctioning.
Swallowing Function: Patient was observed with several ice chips, thin liquids (tsp, straw), nectar thick liquids (tsp, straw), and puree (tsp) in which patient appeared to tolerate nectar thick liquids and puree solids best as she did not exhibit
any overt clinical s/sx of aspiration with presentations. Patient did demonstrate reflexive throat clears with thin liquids. Given patient's clinical presentation, medical history, and overall picture, recommend trial of puree solids and nectar
thick liquids at this time.
Recommendations:
1) Trial of IDDSI Level 4 (puree) and midly (nectar) thick liquids
2) Aspiration precautions
3) Medications as tolerated
4) Full assistance and supervision with PO
5) Vigorous oral care daily
Plan: GERIATRIC PSYCHIATRIST will continue to follow; pending hospitalization.
[2024-02-03] MEDS: PLAVIX 75 MG TUBE (16:30)
[2024-02-03] MEDS: LEVOTHROID 35 MCG IV (16:30)
--- NOTE | 2024-02-03 16:42 | PTCARENOTE ---
Afib mainlined on tele w HR 70's. per BUSINESS OBJECTS REPORT DEVELOPER therapist pt is cleared for nectar thick liquids and pureed food. Diet order updated by ERNST GARCIA.
--- NOTE | 2024-02-03 20:00 | PTCARENOTE ---
Assumed care of pt from dayshift RN. Walking rounds completed. Pt sleepy. Pt able to state full name and birthday. Pt unable to state current month/year. Speech slow. Pupils 3mm and equally reactive to light. Pt able to LOVING and follow commands.
Bilateral strength weak. Pt a-fib on the monitor. HR 70-80s. Temporary epicardial v-wire set to backup 30/10. BP stable. +1 generalized anasarca throughout. Bilateral LE pulses weak to palpable. Bilateral radial pulses palpable. Pt on 2 L NC. POX
92-94%. Lung sounds diminished. Deep breathing and coughing encouraged. CTx4 to -20 suction, output appropriate - see worklist for further details. +BS. Abdomen round, nontender. Purewick catheter in place. Pt due to void post catheter removal.
Right IJ cordis CDI. All surgical sites stable. Bilateral heel foams/multi podus boots and sacral foam CDI. Pt turned and repositioned. Amio infusing as ordered. No c/o pain at this time. See worklist for fulling nursing assessment, VS, and
interventions.
[2024-02-03] MEDS: TYLENOL 1000 MG PO (22:31)
[2024-02-03] MEDS: PACERONE 200 MG PO (22:31)
[2024-02-03] MEDS: NSS 500 IV (22:32)
[2024-02-04] VITALS (20 sets, daily range): BP systolic 96–156; BP diastolic 55–83; PULSE 84; O2SAT 93; BMI 39.5
[2024-02-04] MEDS: LOPRESSOR 2.5 MG IV ×2 (00:10→06:09)
--- NOTE | 2024-02-04 00:27 | PTCARENOTE ---
Pt reassessed. Mental status unchanged. Remains a-fib on the monitor. HR 70-80s. BP stable. Pt placed on bipap 12/5 by respiratory @2215. Pt was uncomfortable with the bipap mask and requesting it be taken off. CTPA said it was okay to take of bipap
mask and put on [address] assessment unchanged. All surgical sites stable. Amio infusing as ordered. Pt bladder scanned for 402 ml - CTPA aware and order placed to straight cath. No c/o pain at this time.
--- NOTE | 2024-02-04 00:51 | PTCARENOTE ---
Pt straight cathed for 500 mL. CTPA aware.
[2024-02-04] MEDS: CORDARONE 518 MG IV (00:58)
--- NOTE | 2024-02-04 04:11 | W.PN.CT ---
Addendum entered and electronically signed by Kamari Carroll MD 02/04/24 08:19:
I saw and examined the patient.
The PA's note was reviewed and I agree with the note.
Comment:
POD#6 s/p ATAAD repair w/ #23 Biobentall, Ligation of R&L coronary ostia, CABG x 3, open distal anastomosis under DHCA w/ ACP - open chest/packing
POD#4 s/p Closure
Pt. is making good progress. No major overnight events. More awake/alert this AM.
N: greatly appreciate neurology expertise/input, will continue to monitor, stop Keppra
CV: HD stable, STOP amio - pt w/ chronic PAF, hold on anticoagulation until D/C, CT: M: 90/220, P: 120/250 - maintain CTs today
P: night BiPAP as tolerated prn, OOB/IS/chest pt, wean O2 as tolerated
GI: Cleared for nectar thick/puree diet - continued speech assessments, follow LFTs - d/c AMIO, d/c CRESTOR
: creat normalized, UO adequate, diuresis today
HEME: Hgb 9.0. PLT 125 (improved)
ID: afebrile. WBC 14.8 (down from 17.8)
ENDO: BS controlled on ISS
FEN: K 3.6 - replete.
PROPH: SCDs, protonix, OOB
DISPO: full code
Original Note:
Today's Communication / Plan
-
-No major issues overnight. Hemodynamically stable. Pt appears more awake and alert
-Moving all extremities appropriately, alert and oriented x 2, not fully oriented to time. Avoid narcotics/sedatives if possible
-Off all drips but Amiodarone gtt for postop A-fib. Weaned off dobutamine gtt on 02/01/24. Bumex gtt was d/c'd 02/01
-Acute postop urinary retention, martino d/c'd yesterday 02/02. Bladder scanned for > 400 mL @ midnight, straight cathed for 500 mL. F/u u/o has PureWick in place
-YARA has resolved, 0.9, was 1.3 yesterday, 0.6-0.8 preop
-Consider d/c of Keppra (decreased from 1g BID to 500 mg BID), no seizures per EEG, Neurology following
-Consider d/c of chest tubes, cxr looks good, drainage: 2meds 90/220, R/L pleurals 120/250. D/C of chest tubes should facilitate resolution of hypercapnia
-Consider d/c of sternal SHILO dressing
-Retaining CO2 and on BIPAP @ night (did not tolerate last night), settings adjusted to 12/5 per Pulmonary. F/U ABG
-[place] and a-line d/c'd yesterday 02/02
-Tolerating resumption of low dose BB
-Monitor plts ,improved 125K today, was 91K yesterday, on ASA and Plavix. Will eventually require oral anticoagulation for postop A-fib
-Will discuss possible d/c of hepatotoxic meds (Amiodarone/Tylenol/Crestor) given rising AST/ALT: AST 53-> 123, ALT 24-> 109
-PT/OT/SP f/u, deconditioned/OOB into chair/Ambulate as tolerated
-Advance diet as tolerated, currently on Puree and ([place]) thick liquid diet per Speech/swallow
-Encourage use of IS/wean off of O2 as tolerated, currently on 5L NC
-Maintain temporary pacer wires (will cut before d/c )
-Cont. DVT prophylaxis with SCDs
Assessment / Plan
-
- s/p Emergency repair of ATAAD w/ #23 Bio-bentall, ligation of LM and RM ostia, CABG x 3 (PRINCESS to LAD, GSV to OM, GSV to PDA); DHCA w/ ACP, Open chest for ongoing coagulopathy 01/29/[address] Carroll - POD #6
-s/p R femoral IABP removal & arterial repair of common femoral artery via cutdown & L femoral IABP insertion 01/29/[address] Alarcon
-s/p chest closure by Dr. Myles on 01/31/24, pod #4
- CAD s/p aborted PCI c/b LM dissection extending retrograde to Type A dissection - now s/p Bentall with hemiarch replacement, cabg x3 on 01/29/24
- IABP removed 01/30/24
- hemorrhagic shock c/b coagulopathy
- AF s/p cryo ablation 2015
- HTN
- HLD
- obesity
- hyperparathyroidism s/p parathyroidectomy
- spinal stenosis
- osteoporosis
- multiple tendon repairs
- Acute postop blood loss anemia/ hemorrhagic shock, s/p multiple transfusions
- Acute postop thrombocytopenia/ coagulopathy
- Acute postop hypervolemia/volume overload -on Bumex drip
- Acute postop metabolic alkalosis - tx with Diamox
- Acute postop suspected seizure- followed by Neurology, started on [facility], Head CT without acute findings
- Acute postop a-fib with RVR - tx with Amio bolus x2 and drip
- YARA
- Acute postop hypocalcemia - repleted
- Acute postop probable shock liver
- Acute postop hypercapnia
- Acute postop pulmonary insufficiency/hypoxemia
- Acute postop urinary retention
Discussed patient care with: Cardiology, Nursing, Respiratory Therapy, Pharmacy and Care Team
Subjective
Procedure
-s/p Emergency repair of ATAAD w/ #23 Bio-bentall, ligation of LM and RM ostia, CABG x 3 (PRINCESS to LAD, GSV to OM, GSV to PDA); DHCA w/ ACP, Open chest for ongoing coagulopathy on 01/29/[address] Carroll
-s/p chest closure by Dr. Myles on 01/31/24
-
Date of Service: February 04, 2024
Pt appears more alert, Alert on oriented to self and place, but not fully oriented to time. C/o intolerance to BiPAP machine last night
Objective Data
-
PT 16.3 Sec (11.4-14.6) H 01/31/24 10:29
INR 1.31 01/31/24 10:29
APTT 37.1 Sec (23.4-35.0) H 01/31/24 10:29
Vital Signs
Vital Signs
Temp Pulse Resp BP Pulse Ox
97.7 F 74 16 132/72 93
02/04/24 04:00 02/04/24 04:00 02/04/24 04:00 02/04/24 04:00 02/04/24 04:00
CT Intake/Output/Weight
02/03/24 02/03/24 02/04/24
06:59 18:59 06:59
Intake Total 420.3 / 947.5 410.3 / 677.3 267.0 / 677.3
Output Total 650 / 1435 555 / 1265 710 / 1265
Balance -229.7 / -487.5 -144.7 / -587.7 -443.0 / -587.7
SaO2: 93 (2L)
Physical Exam
-
General: Awake and Oriented (x2, not fully oriented to time)
Cardiovascular: Regular rate & rhythm, No Murmurs, No Rub and No Gallop
Respiratory: Decreased Breath Sounds
Sternum: Stable
Incision: Clean, Dry, Intact and Dressing Intact
Extremities: Edema +1
Data Reviewed
-
Lab Results: Results Reviewed
Medications: Active Meds Reviewed
Chest X-Ray: Report Reviewed and Image Reviewed
ECG: Report Reviewed and Image Reviewed
[2024-02-04 04:37] LABS: Hematocrit 27.4 % (37.0-47.0); Mean Corp Hgb Conc. 32.8 g/dL (33.0-37.0); Mean Corpuscular Hgb 30.1 pg (27.0-31.0); Mean Corpuscular Volume 91.6 fL (81.0-99.0); Mean Platelet Volume 10.4 fL (7.4-10.4); Platelet Count 125 10^3/uL (130-400); Red Blood Cell Count 2.99 10^6/uL (4.20-5.40); Red Cell Dist. Width 14.4 % (11.5-14.5); White Blood Cell Count 14.8 10^3/uL (4.8-10.8)
--- NOTE | 2024-02-04 04:49 | PTCARENOTE ---
Pt reassessed. Mental status unchanged. Pt a-fib on the monitor. HR 70-80s. Temporary epicardial v-wire intact. BP stable. CT assessment unchanged. Pt on 2 L NC. POX 91-94%. Pt bladder scanned for 34mL. Encouraged to void in pure-wick catheter. Pt
repositioned in bed. All surgical sites stable. No c/o pain at this time. Labs drawn and sent.
[2024-02-04 04:54] LABS: ALT (SGPT) 109 U/L (0-35); AST (SGOT) 123 U/L (14-36); Albumin 3.5 g/dl (3.5-5.0); Alkaline Phosphatase 79 U/L (38-126); Blood Urea Nitrogen 46 mg/dl (7-17); Calcium 8.8 mg/dl (8.4-10.2); Carbon Dioxide 31 mmol/L (22-30); Chloride 103 mmol/L (98-107); Estimated Creatinine Clearance 65 ml/min; Glucose 130 mg/dl (70-99); Magnesium 2.5 mg/dl (1.6-2.3); Potassium 3.6 mmol/L (3.5-5.1); Sodium 141 mmol/L (135-145); Total Bilirubin 1.8 mg/dl (0.2-1.3); Total Protein 5.5 g/dl (6.3-8.2); eGFR > 60.00
[2024-02-04 05:01] LABS: Prealbumin (Transthyretin) 8.5 mg/dl (17.6-36.0)
[2024-02-04] MEDS: TYLENOL PO ×3 (06:08→22:34)
--- NOTE | 2024-02-04 07:32 | W.PN.NEURO.1 ---
Today's Communication / Plan
-
-Stop Keppra and monitor off medication
-Supportive care and care per CT ICU
Neuro Assessment/Plan
Assessment
Patient is a 73-year-old woman with a past no history of atrial fibrillation, coronary artery disease who underwent cardiac catheterization on 01/28 was not successful in PTCA of the LAD due to severe calcifications and was complicated by left
anterior artery descending dissection. She had intra-aortic balloon pump placed. She had further complications of ascending type a aortic dissection with CABG and underwent operative repair of this along with repair of common femoral artery from
vascular surgery. She did have intraoperature cirulatory arrest and hypothermia.
Postoperatively the patient has been intubated and being manage medically. She has been following commands and had an episode this afternoon where she seemed to become poorly responsive and then had a short-lived bilateral type raising of the arms
without repetitive clonic activity and after couple minutes seem to come to and obey commands once again. There was no overt tonic posturing seen or unilateral features of the arms or gaze preference seen.
Impressions
1. Possible short-lived seizure. Now obeying commands. Other possibilities would include agitation and/or encephalopathy or nonepileptic myoclonus.
2. Atrial fibrillation
3. Coronary artery disease
4. Dissection of coronary artery complicated by aortic dissection with repair as well as CABG, as well as right femoral artery repair
CT head non contrast no abnormalities seen
Subjective/Objective
Subjective Data
Date of Service: February 04, 2024
No acute events, is on room air, asks for ice chips
Objective Data
Vital Signs
Temp Pulse Resp BP Pulse Ox
97.7 F 79 18 137/81 94
02/04/24 04:00 02/04/24 06:00 02/04/24 06:00 02/04/24 06:00 02/04/24 06:00
Lab Results
02/04/24 04:18
02/04/24 04:18
PT 16.3 Sec (11.4-14.6) H 01/31/24 10:29
INR 1.31 01/31/24 10:29
APTT 37.1 Sec (23.4-35.0) H 01/31/24 10:29
Sodium 141 mmol/L (135-145) 02/04/24 04:18
Potassium 3.6 mmol/L (3.5-5.1) 02/04/24 04:18
BUN 46 mg/dl (7-17) H 02/04/24 04:18
Glucose 130 mg/dl (70-99) H 02/04/24 04:18
Calcium 8.8 mg/dl (8.4-10.2) 02/04/24 04:18
Phosphorus 4.9 mg/dl (2.5-4.5) H 01/31/24 09:38
Patient Allergies
adhesive Allergy (Verified 01/29/24 08:06)
Rash
chlorhexidine Allergy (Verified 01/29/24 08:06)
Hives
levofloxacin Allergy (Verified 01/29/24 08:06)
affects tendons
pravastatin Allergy (Verified 01/29/24 07:54)
Unknown
Review of Systems
-
History Source: Patient
All other systems: Reviewed and negative
Constitutional: No Symptoms
EENT: No Symptoms Reported
Respiratory: No Symptoms
Cardiac: No Symptoms
Abdomen/GI: No Symptoms
Genitourinary: No Symptoms
Musculoskeletal: No Symptoms
Skin: No Symptoms
Neuro: No Symptoms
Hematologic / Lymphatic: No Symptoms
Allergy / Immunology: No Symptoms
Physical Exam
-
General: No Apparent Distress and Obese
Eyes: No Ptosis
HEENT: Moist Mucous Membranes
Neck: Full Range of Motion
Respiratory: Rales and No Dyspnea; Negative Accessory Resp Muscle Use
Cardiac: Regular Rhythm
GI: Soft and Non-tender
Skin: Warm and Dry
Extremities: Edema +1
Psych: Negative Agitated
Extended Neurological Exam
Attention Span & Concentration: Awake, Alert, Interactive and Other (Psychomotor slowing, obeys commands consistently, oriented to person, hospital)
Memory: Reduced
Tremor: Hand Tremor Absent
Involuntary Movement: None
Speech: Negative Expressive Aphasia, Receptive Aphasia or Dysarthric
Cranial Nerve II: Left Eye: Pupillary Reactivity Unremarkable and Pupillary Size Unremarkable
Cranial Nerve II: Right Eye: Pupillary Reactivity Unremarkable and Pupillary Size Unremarkable
Cranial Nerves III, IV, : Extraocular Movement: Extraocular Movement Full in all Directions
Muscle Strength, Overall: Other (5/5 arm flexion, 3/5 hip flexion bilaterally limited effort due to body habitus, edema of lower extremity)
Touch Sensation: Unremarkable
Data Reviewed
-
CT Head: Report Reviewed and Image Reviewed
EEG: Report Reviewed
[2024-02-04] MEDS: PACERONE 200 MG PO (08:01)
[2024-02-04] MEDS: CRESTOR 10 MG PO (08:01)
[2024-02-04] MEDS: PROTONIX IV 40 MG IV (08:02)
[2024-02-04] MEDS: SENOKOT-S 1 TABLET PO ×2 (08:02→20:13)
[2024-02-04] MEDS: NSS (PRESERVATIVE FREE) 10 ML IV (08:02)
[2024-02-04] MEDS: PLAVIX 75 MG TUBE (08:02)
[2024-02-04] MEDS: LIDOCAINE 4% PATCH 1 PATCH TOPICAL (08:02)
[2024-02-04] MEDS: NOVOLOG FLEXPEN-MODERATE RESISTANCE SC ×2 (08:03→13:06)
--- NOTE | 2024-02-04 08:32 | W.PN.CD ---
Today's Communication / Plan
-
Change amiodarone to po when taking oral meds
Hold off on initiating OAT for now
Impression / Plan
-
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
-Emergency repair (#23 bio Anabelle), ligation of LM/R and ostia, C
-Now extubated.
-Case complicated by coagulopathy which is improving. Chest tube drainage much less
-Off dobutamine.
-d/c of chest tubes
Paroxysmal atrial fibrillation--now with post op A fib with RVR
-Cryoablation in 2016
-[id number] score at least 3 (vascular disease, female gender, age 73)
-not currently on OAC with complex surgery and coagulopathy
-Continue IV amiodarone. Change to po when able
- I agree that starting anticoagulation now poses more risk than benefit. Once chest tubes out and CT surgery confident bleeding risk at surgical sites are reasonably low can start OAT
Hypertension, now hypotensive, all agents on hold with vasopressor support
HLD, goal LDL <55, resume rosuvastatin when able
Hypothyroidism on levothyroxine
Discussed with CT surgical team including Dr Carroll
CCT 30 minutes
Physical Exam
Vital Signs/Labs
Vital Signs
Temp Pulse Resp BP Pulse Ox
97.7 F 79 18 137/81 94
02/04/24 04:00 02/04/24 06:00 02/04/24 06:00 02/04/24 06:00 02/04/24 06:00
02/03/24 02/04/24 02/05/24
06:59 06:59 06:59
Actual Weight 235 lb 14.314 oz 229 lb 11.547 oz
02/04/24 04:18
02/04/24 04:18
PT 16.3 Sec (11.4-14.6) H 01/31/24 10:29
INR 1.31 04/25/24 10:29
APTT 37.1 Sec (23.4-35.0) H 01/31/24 10:29
Magnesium 2.5 mg/dl (1.6-2.3) H 02/04/24 04:18
Physical Exam
Constitutional: No acute distress
EENT: Anicteric
Cardiovascular: Rhythm/rate is irregular and Murmur/rub/gallop absent
Respiratory: Respiratory effort normal, Wheeze Absent, Crackles Absent and Rhonchi Present
GI: Non tender
Neuro/Psych: Motor deficits absent
Data Reviewed
-
Date of Service: February 04, 2024
--- NOTE | 2024-02-04 09:17 | PTCARENOTE ---
assumed care of pt from previous shift RN, pt is lethargic but wakes to verbal stimuli, pupils +3 equally reactive to light, LOVING to commands, oriented to person and place. afib on tele w HR 80's, epicardial pacing wire set to a back up of 30/10. +
peripheral pulses, +2 generalized anasarca. Lungs diminished, coughing and deep breathing encouraged. Pox 92-93% on 2L NC. +BS, tolerating PO intake. Bladder scanned for 200ml. Right IJ cordis w KVO infusing, amiodarone gtt d/c'ed. PIV flushes
easily. MSI w SHILO dressing intact, CT dressing changed. Brionna lift used to transfer the pt from the bed to the chair without incident. Assisted pt w breakfast tray. Medications crushed and administered w apple sauce. Plan of care reviewed and
questions encouraged.
[2024-02-04] MEDS: KCL 100 IV (09:58)
[2024-02-04] MEDS: LOPRESSOR 12.5 MG PO ×2 (09:58→20:13)
[2024-02-04] MEDS: LOW STRENGTH ASPIRIN 81 MG PO (09:58)
[2024-02-04] MEDS: BUMEX 1 MG IV (09:58)
--- NOTE | 2024-02-04 11:44 | PTCARENOTE ---
pt stated that she had to urinate but felt unable to release her urine (purewick in place). Bladder scanned for 660ml. Assisted pt back to bed using lift. While preparing to straight cath pt was grossly incont of urine. Incont care provided. PVI
60ml. Purewick replaced. Pt's and son at bedside, updated. Questions encouraged.
--- NOTE | 2024-02-04 11:50 | PN.CDI ---
Addendum entered and electronically signed by Hernando Chaudhary PA-C 02/04/24 14:20:
Pt with acute postop pulmonary insufficiency
Original Note:
CDI
- -
CDI:
Physician Documentation Request
Admit Date: 01/29/24 11:[address] surgery,
Pt admitted for LM and Aortic dissection
Clinical Indicators:
01/30 S/P chest Closure
01/30 Production Control Manager PN: 'Ventilator settings reviewed --> patient is now being awakened with plans to extubate'
02/01 CT PN: ' Acute postop hypercapnia'. 'Acute postop pulmonary insufficiency'
02/01 Production Control Manager PN: 'Ventilator dependent respiratory failure - patient extubated on 01/31/2024'. 'Patient remained on BiPAP this AM and was raised from 14/5 to 20/15 given slight worsening pCO2 levels seen this AM'
02/03 CT PN: 'Acute postop pulmonary insufficiency/hypoxemia'
Selected Entries
02/02/24
12:11 02/02/24
20:00 02/03/24
07:00
Nasal Cannula flow liters per minute 6 5 6
Please clarify the type and acuity of respiratory failure:
Acute respiratory Failure (please specify hypoxic, hypercapnia, etc.)
Acute post op pulmonary insufficiency
Other
Use of terms such as suspected, likely, concern for, or probable (associated with a specific diagnosis that is being evaluated, monitored, or treated as if it exists) are acceptable and can be coded in the inpatient setting, when documented at the
time of discharge.
Thank you,
Andressa Mcelroy RN, BSN
CDI Specialist
available via tiger text
Please use your independent medical judgment in providing your response.
[2024-02-04 12:50] LABS: Glucose - Point of Care 146 mg/dl (70-99)
--- NOTE | 2024-02-04 13:14 | CM ---
Reviewed chart. Met with and Mrs. Duron to review discharge plans. Reviewed different levels of rehab. Acute versus SNF. Reviewed [facility] and [facility]. Family states [facility] is closer. Telephone call to [facility] liaison to make the referral. Referral sent. Telephone call to [facility] Liaison to make the referral. Referral sent. Medical work-up in progress. The discharge plan is some level of rehab. - hopefully acute at [facility] versus [facility] when medically stable.
--- NOTE | 2024-02-04 14:05 | W.PN.INTV ---
Today's Communication / Plan
Recommendations
Hold off on BiPAP tonight
Obtain ABG tomorrow
Nocturnal pulse oximetry
Wean off oxygen
Follow chest tube output
Continue postoperative care
Assessment
-
Assessment: 73-year-old F with a PMHx of A-fib s/p cryoablation (2015), hypothyroidism, hypertension, hyperlipidemia, spinal stenosis and asthma who initially presented with worsening angina and left heart catheterization. [facility] performed on
01/29/2024 and there was great difficulty in advancing equipment to predilate the lesion. Patient unfortunately developed an LAD dissection, and patient had an intra-aortic balloon pump placed by vascular surgery for hemodynamic support.
Cardiothoracic surgery consulted, and patient went to the OR where initial [place] showed moderate�severe AI with flap of type a aortic dissection visible in the ascending aorta and proximal arch. There also was extensive dissection involving the
entire aortic root. On 01/28/2023, patient underwent emergency repair of her type a dissection, ligation of LM and RM ostia, CABG x 3 with deep hypothermic circulatory arrest and antegrade cerebral perfusion. At the procedures end, pt with open
chest due to ongoing coagulopathy and open chest dressing was placed. Patient required multiple blood transfusions including 10 units PRBC, 4 units platelets, 8 units FFP, and 9 mg of factor VIIa. There were no immediate complications
postoperatively, and patient was transferred to the CVICU for further care with critical care services consulted for additional management/recommendations.
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
Impression:
#CAD s/p LHC c/b ATAAD involving LM/RM/aortic root and extending to proximal aortic arch s/p repair with Bio-Bentall, ligation of LM/RM ostia and CABG x3 (POD#5)
#Coagulopathy due to surgery - resolved
#Open chest s/p chest closure (POD#3)
#Ventilator dependent respiratory failure - patient extubated on 01/31/2024
#Lactic acidosis - resolved
#Hypernatremia - resolved
#Anemia
#Thrombocytopenia
#Transaminitis - improving
#Obesity hypoventilation syndrome
Plan:
Patient doing well and has been using BiPAP with sleep on 09/11
Hold BiPAP tonight and obtain pot builder ABG tomorrow 02/05/2024. Discussed with respiratory therapist
Obtain nocturnal pulse oximetry as well tonight.
Patient likely has obesity hypoventilation syndrome which will explain her chronic hypercapnic respiratory failure.
Will need sleep study eventually.
Recommend outpatient pulmonary/sleep follow-up
-
Wean supplemental flow rate to maintain SpO2 >94%
prn nebulized bronchodilators
-
Monitor chest tube output (L+R pleural chest tubes + mediastinal chest tubes x2)
No air leak or excessive drainage.
Chest x-ray 02/04/2024: Reviewed, no pneumothorax. No significant pleural effusions or collections.
CT surgery managing chest tubes
-
Monitor hemoglobin
Monitor platelet count and coags
Transfuse blood product if needed to keep Hb>8g/dL and plt>50k
Monitor blood sugar with goal BG 140-180mg/dL
Insulin supplementation as needed
Aspiration precautions
DVT prophylaxis
-
Will continue to follow

Data:
CXR 02-03-2024:
1. Postoperative from surgical aortic valve replacement and CABG surgery with a pulmonary arterial catheter and bilateral chest tubes remaining in place.
2. Moderate enlargement of the cardiac silhouette which appears unchanged.
3. Small bilateral pleural effusions and mild bilateral lower lobe subpleural subsegmental atelectasis.
4. Interval removal of a nasogastric feeding tube.
CXR 02-02-2024:
1. Postoperative from surgical aortic valve replacement and CABG surgery with bilateral chest tubes, a pulmonary arterial catheter, and nasogastric feeding tube in place.
2. Mild elevation of the right hemidiaphragm.
3. No radiographic evidence for pleural effusion or pneumothorax.
CXR 02-01-2024:
1. Interval extubation.
2. Postoperative from surgical aortic valve replacement and CABG surgery.
3. Pulmonary arterial catheter and chest tubes remaining in place.
4. Moderately decreased lung volumes with left to right mediastinal shift.
5. Small left pleural effusion.
CXR 01-31-2024: Endotracheal tube and right internal jugular Johnson-Phillip catheter remain in place. No pneumothorax identified. The cardiomediastinal margins are stable. No evidence to suggest congestive heart failure. Minor atelectasis in the medial
left lung base.
CXR 01-30-2024: Postoperative changes; No pneumothorax
Subjective Dataa
Subjective Data
Date of Service:
Date of Service: February 04, 2024
Chief Complaint: Perinatal Coordinator Follow Up
Subjective:
No new overnight events
Tolerating BiPAP.
Review of Systems
General: Fever (n)
Cardiopulmonary: Dyspnea (n)
GI: Abdominal Pain (n) and Nausea (n)
Objective Data
Data Reviewed
Vital Signs / I&O / Oxygen:
Vital Signs
Temp Pulse Resp BP Pulse Ox
98 F 77 22 140/82 94
02/04/24 12:00 02/04/24 13:00 02/04/24 13:00 02/04/24 13:00 02/04/24 13:00
Intake and Output
02/03/24 02/04/24 02/05/24
06:59 06:59 06:59
Intake Total 910.8 / 947.5 730.7 / 730.7 206.7 / 206.7
Output Total 1355 / 1435 1305 / 1305 375 / 375
Balance -444.2 / -487.5 -574.3 / -574.3 -168.3 / -168.3
SaO2 [CPAP/PSV] 99
SaO2 [SIMV] 98
SaO2 94
Nasal Cannula flow liters per 2
minute
Physical Exam
General: Respiratory Distress (negative) and Comfortable
HEENT: Normocephalic and Anicteric
Cardiovascular: Irregular Rhythm, Peripheral Edema (negative) and Other (Normal rate)
Respiratory: Wheeze (negative), Crackles (negative), Rhonchi (negative), Non-Labored Respirations (negative), Chest Tube (x4 (left and right pleural and mediastinal x2)) and Other (Course breath sounds heard bilaterally)
GI: Soft, Non Distended and Non Tender
Neurology: Awake, Tremors (negative) and Other (sleepy but easily arousable and answering questions appropriately)
Skin: Warm and Dry
Labs/Micro/Reports
Lab Data
02/04/24 04:18
02/04/24 04:18
--- NOTE | 2024-02-04 15:46 | PTCARENOTE ---
Pt bladder scanned for 510ml. Unable to void. Straight cathed for 500ml lee ann urine. SHILO dressing removed from MSI, surgical glue intact. CT dressings changed.
--- NOTE | 2024-02-04 16:27 | PTCARENOTE ---
pt hoyered OOB to chair without incident.
[2024-02-04 16:36] LABS: Glucose - Point of Care 179 mg/dl (70-99)
[2024-02-04] MEDS: NOVOLOG FLEXPEN-MODERATE RESISTANCE 1 UNITS SC (17:06)
[2024-02-04] MEDS: SYNTHROID 50 MCG PO (17:06)
--- NOTE | 2024-02-04 20:30 | PTCARENOTE ---
Assumed care of patient from dayshift RN. Pt sleepy but arousable. Pt oriented to person, place, and current year. Slow speech. LOVING. Denies pain. Pt A-fib on the monitor. HR 80s. Temporary epicardial v-wire set to VVI 30/10. Palpable pulses
throughout. +2 generalized edema. Pt on 2 L NC. POX 94-95%. Lung sounds diminished. Coughing and deep breathing encouraged. IS 750. CTx4 to -20 suction - see worklist for further details. Abdomen soft/nontender/round. +BS. IDDSI 4- Pureed diet.
Pure-wick in place. All surgical sites stable. Right IJ cordis and PIVx1 CDI. Pt repositioned in bed. See worklist for full nursing assessment, VS, and interventions.
--- NOTE | 2024-02-04 22:06 | RESPNOTE ---
nocturnal started at 2140 on 2 LPM
[2024-02-04] MEDS: NSS 500 IV (22:34)
[2024-02-05] VITALS (9 sets, daily range): BP systolic 100–152; BP diastolic 56–85; BMI 39.0
--- NOTE | 2024-02-05 00:15 | PTCARENOTE ---
Previous assessment unchanged. Pt A-fib on monitor. HR 80s. Pt on 2 L NC. POX 94%. Pt repositioned in bed/ given ice chips. No c/o pain at this time.
[2024-02-05 03:47] LABS: Hematocrit 29.3 % (37.0-47.0); Hemoglobin 9.9 g/dL (12.0-16.0); Mean Corp Hgb Conc. 33.8 g/dL (33.0-37.0); Mean Corpuscular Hgb 30.8 pg (27.0-31.0); Mean Corpuscular Volume 91.3 fL (81.0-99.0); Mean Platelet Volume 10.1 fL (7.4-10.4); Platelet Count 155 10^3/uL (130-400); Red Blood Cell Count 3.21 10^6/uL (4.20-5.40); Red Cell Dist. Width 14.8 % (11.5-14.5); White Blood Cell Count 13.5 10^3/uL (4.8-10.8)
[2024-02-05 04:13] LABS: ALT (SGPT) 92 U/L (0-35); AST (SGOT) 75 U/L (14-36); Albumin 3.5 g/dl (3.5-5.0); Alkaline Phosphatase 84 U/L (38-126); Blood Urea Nitrogen 34 mg/dl (7-17); Calcium 8.7 mg/dl (8.4-10.2); Carbon Dioxide 30 mmol/L (22-30); Chloride 103 mmol/L (98-107); Direct Bilirubin 0.4 mg/dl (0.0-0.4); Estimated Creatinine Clearance 83 ml/min; Glucose 130 mg/dl (70-99); Magnesium 2.1 mg/dl (1.6-2.3); Potassium 3.6 mmol/L (3.5-5.1); Sodium 139 mmol/L (135-145); Total Bilirubin 1.9 mg/dl (0.2-1.3); Total Protein 5.6 g/dl (6.3-8.2); eGFR > 60.00
[2024-02-05 04:21] LABS: B.E. 4.1 mmol/L; HCO3 28.5 mmol/L (21-28); O2 Saturation % 96.4 % (94-98); PCO2 41 mmHg (32-35); PO2 75 mmHg (83-108); pH 7.45 (7.35-7.45)
--- NOTE | 2024-02-05 04:23 | RESPNOTE ---
nocturnal pulled since pt was awake
--- NOTE | 2024-02-05 04:26 | PTCARENOTE ---
Pt reassessed. Mental status unchanged - however pt could not state current year at this time, only person/place/month. Pt A-fib on the monitor. HR 80-100s. BP stable. Pt on 2 L NC. POX 93-95%. Pt bladder scanned for 423 mL. CTPA aware- Encouraged
pt to void into pure-wick. Pt repositioned in bed. Labs drawn and sent. No c/o of pain.
--- NOTE | 2024-02-05 05:02 | W.PN.CT ---
Addendum entered and electronically signed by Kamari Carroll MD 02/05/24 06:47:
I saw and examined the patient.
The PA's note was reviewed and I agree with the note.
Comment:
Doing well
- D/C CTs
- OOB/IS
- PT
Original Note:
Today's Communication / Plan
-
-No major issues overnight. Hemodynamically stable. Pt appears more awake and alert
-Moving all extremities appropriately, alert and oriented x 2, not fully oriented to time. Avoid narcotics/sedatives if possible
-Off all drips
-Acute postop urinary retention, martino d/c'd 02/02. Now voiding spontaneously but not fully emptying and requires postvoid residual monitoring
-YARA has resolved, creatinine back to baseline, 0.7 today
-Keppra d/c'd yesterday by Neurology
-Consider d/c of chest tubes, cxr looks good, drainage: 2meds 40/140, R/L pleurals 70/190. D/C of chest tubes should facilitate resolution of hypercapnia, improved with d/c of Keppra
-D/C cordis if able to obtain peripheral access
-Retaining CO2, likely d/t deconditioning, [address], and sedative affects of Keppra, improving following d/c of Keppra
-Thrombocytopenia has resolved, 155K today was 125K yesterday, cont. ASA and Plavix. Will eventually require oral anticoagulation for postop A-fib
-Transaminitis improving following d/c of hepatotoxic meds (Amiodarone/Tylenol/Crestor):AST 53-> 123-> 75, ALT 24-> 109-> 92
-Cont. gentle diuresis, replete K
-PT/OT/SP f/u, deconditioned/OOB into chair/Ambulate as tolerated
-Advance diet as tolerated, currently on Puree/([place]) thick liquid diet per Speech/swallow
-Encourage use of IS/wean off of O2 as tolerated, currently on 2L NC
-Maintain temporary pacer wires (will cut before d/c )
-Cont. DVT prophylaxis with SCDs
Assessment / Plan
-
- s/p Emergency repair of ATAAD w/ #23 Bio-bentall, ligation of LM and RM ostia, CABG x 3 (PRINCESS to LAD, GSV to OM, GSV to PDA); DHCA w/ ACP, Open chest for ongoing coagulopathy 01/29/[address] Carroll - POD #7
-s/p R femoral IABP removal & arterial repair of common femoral artery via cutdown & L femoral IABP insertion 01/29/[address] Alarcon
-s/p chest closure by Dr. Myles on 01/31/24, pod #5
- CAD s/p aborted PCI c/b LM dissection extending retrograde to Type A dissection - now s/p Bentall with hemiarch replacement, cabg x3 on 01/29/24
- IABP removed 01/30/24
- hemorrhagic shock c/b coagulopathy
- AF s/p cryo ablation 2015
- HTN
- HLD
- obesity
- hyperparathyroidism s/p parathyroidectomy
- spinal stenosis
- osteoporosis
- multiple tendon repairs
- Acute postop blood loss anemia/ hemorrhagic shock, s/p multiple transfusions
- Acute postop thrombocytopenia/ coagulopathy
- Acute postop hypervolemia/volume overload -on Bumex drip
- Acute postop metabolic alkalosis - tx with Diamox
- Acute postop suspected seizure- followed by Neurology, started on Keppra, Head CT without acute findings
- Acute postop a-fib with RVR - tx with Amio bolus x2 and drip
- YARA
- Acute postop hypocalcemia - repleted
- Acute postop probable shock liver
- Acute postop hypercapnia
- Acute postop pulmonary insufficiency/hypoxemia
- Acute postop urinary retention
Discussed patient care with: Cardiology, Nursing, Respiratory Therapy, Pharmacy and Care Team
Subjective
Procedure
-s/p Emergency repair of ATAAD w/ #23 Bio-bentall, ligation of LM and RM ostia, CABG x 3 (PRINCESS to LAD, GSV to OM, GSV to PDA); DHCA w/ ACP, Open chest for ongoing coagulopathy on 01/29/[address] Carroll
-s/p chest closure by Dr. Myles on 01/31/24
-
Date of Service: February 05, 2024
Pt c/o feeling thirsty, otherwise feels well
Objective Data
-
Lab Results
02/05/24 03:32
02/05/24 03:32
PT 16.3 Sec (11.4-14.6) H 01/31/24 10:29
INR 1.31 01/31/24 10:29
APTT 37.1 Sec (23.4-35.0) H 01/31/24 10:29
Vital Signs
Vital Signs
Temp Pulse Resp BP Pulse Ox
98.3 F 104 26 152/80 95
02/05/24 03:54 02/05/24 03:54 02/05/24 03:54 02/05/24 03:54 02/05/24 03:54
CT Intake/Output/Weight
02/04/24 02/04/24 02/05/24
06:59 18:59 06:59
Intake Total 320.4 / 730.7 316.7 / 366.7 50 / 366.7
Output Total 750 / 1305 970 / 1080 110 / 1080
Balance -429.6 / -574.3 -653.3 / -713.3 -60 / -713.3
SaO2: 95 (2L)
Physical Exam
-
General: Awake and Oriented (alert and oriented x 2, not fully oriented to time, thinks it's 2024)
Cardiovascular: Irregular rate & rhythm, No Murmurs, No Rub and No Gallop
Respiratory: Decreased Breath Sounds (at bases with minimal basilar crackles)
Sternum: Stable
Incision: Clean, Dry, Intact and Dressing Intact
Extremities: Other (+trace edema)
Data Reviewed
-
Lab Results: Results Reviewed
Medications: Active Meds Reviewed
Chest X-Ray: Report Reviewed and Image Reviewed
ECG: Report Reviewed and Image Reviewed
[2024-02-05] MEDS: KCL ELIXIR 40 MEQ PO (05:08)
[2024-02-05] MEDS: TYLENOL PO ×2 (06:24→22:01)
[2024-02-05] MEDS: SYNTHROID 50 MCG PO (06:24)
--- NOTE | 2024-02-05 09:30 | PTCARENOTE ---
Resumed care of patient. Walking rounds completed with previous RN. Pt assessed while she was lying in bed. Pt drowsy but oriented to person, place, and knows its the month of January, confuses date and says it's 2003. Pt denies pain, shortness of
breath, and nausea. LOVING with weak strength throughout. 2 assist to turn in bed. Afib on tele with rates in the 90s-100s. BP stable 133/58. Bilateral radial and DP pulses palpable. No edema noted. Epicardial v-wire set to back up, no pacing noted.
POX 95% on 2L NC. Mediastinal CT x2 and Pleural CTx2 to -20cm suction draining scant serosang. fluid. Lungs diminished throughout. Abdomen soft, round, obese, nontender. Hypoactive BS. Tolerating diet, reports no appetite. Purwick in place. Pt
encouraged to void-voided lee ann urine. Sternal incision approximated and SOAP TENDER with skin glue. Chest tube dressing CDI. Right groin aquacel-CDI. Left groin puntures SOAP TENDER. thighs/groins ecchymotic. Left SVG site with Aquacel-CDI. Right IJ cordis intact.
Left wrist PIV intact. See MAR for medication administration. See worklist for complete nursing assessment.
[2024-02-05 09:35] LABS: Glucose - Point of Care 171 mg/dl (70-99)
[2024-02-05] MEDS: NSS (PRESERVATIVE FREE) 10 ML IV (09:50)
[2024-02-05] MEDS: PROTONIX IV 40 MG IV (09:50)
[2024-02-05] MEDS: BUMEX 1 MG IV (09:50)
[2024-02-05] MEDS: LIDOCAINE 4% PATCH 1 PATCH TOPICAL (09:50)
[2024-02-05] MEDS: NOVOLOG FLEXPEN-MODERATE RESISTANCE 1 UNITS SC ×2 (09:51→18:26)
[2024-02-05] MEDS: LOPRESSOR 25 MG PO ×2 (09:51→20:28)
[2024-02-05] MEDS: FLOMAX 0.400000000000000022 MG PO (09:51)
[2024-02-05] MEDS: SENOKOT-S 1 TABLET PO (09:51)
[2024-02-05] MEDS: LOW STRENGTH ASPIRIN 81 MG PO (09:51)
[2024-02-05] MEDS: PLAVIX 75 MG TUBE (09:51)
[2024-02-05] MEDS: DULCOLAX 10 MG PO (09:55)
--- NOTE | 2024-02-05 10:00 | PTCARENOTE ---
Addendum entered by Kristyn Hazel RN 02/05/24 14:19:
Epicardial v-wire insulated.
Original Note:
Mediastinal CT x2 and Pleural CT x2 d/c per orders. Pt tolerated. Sutures tied, dressing applied.
--- NOTE | 2024-02-05 10:30 | PTCARENOTE ---
Taken via stretcher to video swallow. Pt stable prior to transport.
--- NOTE | 2024-02-05 11:42 | W.PN.CD ---
Today's Communication / Plan
-
-No major events overnight.
-Remains in sinus rhythm on telemetry.
-Continue current medications and routine post-operative management as directed by CT Surgery.
Impression / Plan
-
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
-Emergency repair (#23 bio Bentall), ligation of LM/R and ostia, C
-Now extubated.
-Case complicated by coagulopathy which is improving. Chest tube drainage much less
-Remains off dobutamine.
-On clopidogrel.
-Continue current medications and routine post-operative management as directed by CT Surgery.
Paroxysmal atrial fibrillation--now with post op A fib with RVR
-Cryoablation in 2016
-[id number] score at least 3 (vascular disease, female gender, age 73)
-not currently on OAC with complex surgery and coagulopathy=
-Per previous Cardiology note: starting anticoagulation now poses more risk than benefit. Once chest tubes out and CT surgery confident bleeding risk at surgical sites are reasonably low can start OAT
Hypertension -currently stable/controlled.
HLD, goal LDL <55, resume rosuvastatin when able
Hypothyroidism on levothyroxine
CCT 35 minutes
Physical Exam
Vital Signs/Labs
Vital Signs
Temp Pulse Resp BP Pulse Ox
98.6 F 101 22 133/58 94
02/05/24 08:00 02/05/24 08:00 02/05/24 08:00 02/05/24 08:00 02/05/24 08:00
02/04/24 02/05/24 02/06/24
06:59 06:59 06:59
Actual Weight 104.2 kg 102.9 kg
02/05/24 03:32
02/05/24 03:32
PT 16.3 Sec (11.4-14.6) H 01/31/24 10:29
INR 1.31 01/31/24 10:29
APTT 37.1 Sec (23.4-35.0) H 01/31/24 10:29
Magnesium 2.1 mg/dl (1.6-2.3) 02/05/24 03:32
Data Reviewed
-
Date of Service: February 05, 2024
EKG: Tracing Personally Visualized and interpreted (Telemetry: Sinus rhythm)
Medical Tests (PFT, Pathology etc): Discussed with Physician (CT Surgery Team) and Discussed with Patient
Labs: Labs Reviewed by me
--- NOTE | 2024-02-05 12:00 | PTCARENOTE ---
Right IJ cordis d/c per orders. Pt tolerated. Pt requesting to stay in bed at this time, encouraged pt to get OOB in 30 mins via gideon.
--- NOTE | 2024-02-05 12:10 | PTOTSP ---
Video Swallow Examination
Summary: Patient presents with mild oral and WFL-mild pharyngeal stages of swallowing. No aspiration occurred. Please see patient care note for full details of penetration and swallowing physiology.
Recommend:
1. IDDSI Level 6 Soft and Bite Sized, IDDSI Level 0 Thin Liquids
2. Medications - as best tolerated (either one at a time with single sips of water or crushed in puree)
2. Strategies: full supervision, assistance as needed, SINGLE sips/bites, slow rate, ensure patient clears mouth before next sip/bite
3. Dysphagia therapy for patient education and to determine when solid advancement warranted. Consider cognitive linguistic evaluation as able/appropriate.
--- NOTE | 2024-02-05 13:45 | PTCARENOTE ---
Pt assisted to chair with gideon lift. Purwick remains in place. at bedside.
[2024-02-05 13:52] LABS: Glucose - Point of Care 146 mg/dl (70-99)
[2024-02-05] MEDS: NOVOLOG FLEXPEN-MODERATE RESISTANCE SC (14:05)
[2024-02-05] MEDS: TYLENOL 1000 MG PO (14:27)
--- NOTE | 2024-02-05 14:31 | W.PN.INTV ---
Today's Communication / Plan
Recommendations
Continue nocturnal BiPAP at the current settings while in the hospital
Increase activity as able
Follow chest tube output
Follow H&H
Outpatient pulmonary follow-up for sleep evaluation. Information will be left in the chart
Sign off
Assessment
-
Assessment: 73-year-old F with a PMHx of A-fib s/p cryoablation (2015), hypothyroidism, hypertension, hyperlipidemia, spinal stenosis and asthma who initially presented with worsening angina and left heart catheterization. [facility] performed on
01/29/2024 and there was great difficulty in advancing equipment to predilate the lesion. Patient unfortunately developed an LAD dissection, and patient had an intra-aortic balloon pump placed by vascular surgery for hemodynamic support.
Cardiothoracic surgery consulted, and patient went to the OR where initial EUSEBIA showed moderate�severe AI with flap of type a aortic dissection visible in the ascending aorta and proximal arch. There also was extensive dissection involving the
entire aortic root. On 01/28/2023, patient underwent emergency repair of her type a dissection, ligation of LM and RM ostia, CABG x 3 with deep hypothermic circulatory arrest and antegrade cerebral perfusion. At the procedures end, pt with open
chest due to ongoing coagulopathy and open chest dressing was placed. Patient required multiple blood transfusions including 10 units PRBC, 4 units platelets, 8 units FFP, and 9 mg of factor VIIa. There were no immediate complications
postoperatively, and patient was transferred to the CVICU for further care with critical care services consulted for additional management/recommendations.
Chronic conditions CALL CENTER RECRUITER: Paroxysmal A-fib s/p cryoablation (2016), hypertension, carotid artery atherosclerosis, asthma, hyperlipidemia, obesity, hyperparathyroidism s/p parathyroidectomy, hypothyroidism, spinal stenosis
Impression:
#CAD s/p LHC c/b ATAAD involving LM/RM/aortic root and extending to proximal aortic arch s/p repair with Bio-Bentall, ligation of LM/RM ostia and CABG x3 (POD#5)
#Coagulopathy due to surgery - resolved
#Open chest s/p chest closure (POD#3)
#Ventilator dependent respiratory failure - patient extubated on 01/31/2024
#Lactic acidosis - resolved
#Hypernatremia - resolved
#Anemia
#Thrombocytopenia
#Transaminitis - improving
#Obesity hypoventilation syndrome
Plan:
ABG without overnight BiPAP -7.45/41/75 likely has obstructive sleep apnea and possibly obesity hypoventilation syndrome as well.
Improved compared to prior.
At this point we will hold off on discharging her on BiPAP. This could be addressed in the outpatient setting. Will need a sleep study.
As per pulmonary mechanics improved postthoracotomy hypercapnia should improve as well.
While in the hospital continue BiPAP 12/5 at bedtime.
-
Nocturnal pulse oximetry on 2 L demonstrated no significant oxygen saturation.
Continue to wean off oxygen as able.
-
Discussed with patient and family members.
Information will left in the chart for follow-up in the future.
-
Not bronchospastic on exam.
prn nebulized bronchodilators
-
Monitor chest tube output (L+R pleural chest tubes + mediastinal chest tubes x2)
No air leak or excessive drainage.
Chest x-ray 02/05/2024: Reviewed, no pneumothorax. No significant pleural effusions or collections. right a small pleural effusion.
CT surgery managing chest tubes
-
Monitor hemoglobin
Monitor platelet count and coags
Transfuse blood product if needed to keep Hb>8g/dL and plt>50k
Monitor blood sugar with goal BG 140-180mg/dL
Insulin supplementation as needed
Increase mobility as able.
Aspiration precautions
DVT prophylaxis
-
Family members updated at the bedside by Dr. Adorno 02/05/2024.
Patient has been transferred to telemetry.
At this point critical care team will sign off.

Data:
CXR 02-03-2024:
1. Postoperative from surgical aortic valve replacement and CABG surgery with a pulmonary arterial catheter and bilateral chest tubes remaining in place.
2. Moderate enlargement of the cardiac silhouette which appears unchanged.
3. Small bilateral pleural effusions and mild bilateral lower lobe subpleural subsegmental atelectasis.
4. Interval removal of a nasogastric feeding tube.
CXR 02-02-2024:
1. Postoperative from surgical aortic valve replacement and CABG surgery with bilateral chest tubes, a pulmonary arterial catheter, and nasogastric feeding tube in place.
2. Mild elevation of the right hemidiaphragm.
3. No radiographic evidence for pleural effusion or pneumothorax.
CXR 02-01-2024:
1. Interval extubation.
2. Postoperative from surgical aortic valve replacement and CABG surgery.
3. Pulmonary arterial catheter and chest tubes remaining in place.
4. Moderately decreased lung volumes with left to right mediastinal shift.
5. Small left pleural effusion.
CXR 01-31-2024: Endotracheal tube and right internal jugular Shelton-Phillip catheter remain in place. No pneumothorax identified. The cardiomediastinal margins are stable. No evidence to suggest congestive heart failure. Minor atelectasis in the medial
left lung base.
CXR 01-30-2024: Postoperative changes; No pneumothorax
Subjective Dataa
Subjective Data
Date of Service:
Date of Service: February 05, 2024
Chief Complaint: [employer] Follow Up
Subjective:
No new overnight events
Patient slept without BiPAP overnight.
Review of Systems
General: Fever (n)
Cardiopulmonary: Dyspnea (none at rest) and Dyspnea on Exertion (n)
GI: Abdominal Pain (n) and Nausea (n)
Objective Data
Data Reviewed
Vital Signs / I&O / Oxygen:
Vital Signs
Temp Pulse Resp BP Pulse Ox
97.5 F 93 20 100/56 92
02/05/24 12:28 02/05/24 14:00 02/05/24 12:28 02/05/24 12:28 02/05/24 12:28
Intake and Output
02/04/24 02/05/24 02/06/24
06:59 06:59 06:59
Intake Total 730.7 / 730.7 406.7 / 406.7 130 / 130
Output Total 1305 / 1305 1080 / 1080 850 / 850
Balance -574.3 / -574.3 -673.3 / -673.3 -720 / -720
SaO2 [CPAP/PSV] 99
SaO2 [SIMV] 98
SaO2 92
Nasal Cannula flow liters per 2
minute
Physical Exam
General: Respiratory Distress (negative) and Comfortable
HEENT: Normocephalic and Anicteric
Cardiovascular: Irregular Rhythm, Peripheral Edema (negative) and Other (Normal rate)
Respiratory: Wheeze (negative), Crackles (negative), Rhonchi (negative), Non-Labored Respirations (negative), Chest Tube (x4 (left and right pleural and mediastinal x2)) and Other (Course breath sounds heard bilaterally)
GI: Soft, Non Distended and Non Tender
Neurology: Awake, Tremors (negative) and Other (sleepy but easily arousable and answering questions appropriately)
Skin: Warm and Dry
Labs/Micro/Reports
Lab Data
02/05/24 03:32
02/05/24 03:32
Laboratory Results
02/05/24
04:08
pH 7.45
pCO2 41 H
pO2 75 L
HCO3 28.5 H
O2 Delivery Level
--- NOTE | 2024-02-05 16:30 | PTCARENOTE ---
Pt reassessed. Pt c/o back pain. Assisted back to bed with gideon lift and 2 RNs. Pt had large liquid brown bowel movement and urine in the bedpan. VSS. POX 91% on RA. surgical sites stable.
[2024-02-05 18:29] LABS: Glucose - Point of Care 173 mg/dl (70-99)
[2024-02-05] MEDS: SENOKOT-S PO (20:28)
--- NOTE | 2024-02-05 20:35 | PTCARENOTE ---
Assumed care of pt from dayshift RN. Pt awake, alert, and oriented to person/place/time. Pt LOVING and is following commands appropriately. Slow speech. Pt A-fib on the monitor. HR 90s. Temporary epicardial pacemaker wires insulated. BP stable. +1
generalized edema. Palpable pulses throughout. Pt on RA. POX 92%. Lung sounds diminished. Coughing and deep breathing encouraged. CT dressing CDI. Abdomen soft/nontender. +BS. Pure-wick catheter placed. All surgical sites stable. Pt thighs and groin
ecchymotic. PIVx1 CDI. Pt denies pain at this time. See worklist for full nursing assessment, VS, and interventions.
[2024-02-05] MEDS: NSS IV (22:01)
--- NOTE | 2024-02-05 22:30 | RESPNOTE ---
PT was not placed on BIPAP tonight for HS use, per PA Ed. PT does not tolerate BIPAP therapy, will collect an ABG in the AM to monitor for CO2 retention.
[2024-02-05 23:09] LABS: Glucose - Point of Care 132 mg/dl (70-99)
--- NOTE | 2024-02-05 23:56 | PTCARENOTE ---
Previous assessment unchanged. Pt a-fib on the monitor. HR 80-90s. BP stable. RA. POX 91%. Pt repositioned in bed. Pure-wick in place. No c/o pain at this time. Call rivera within reach.
[2024-02-06] VITALS (11 sets, daily range): BP systolic 99–142; BP diastolic 55–79; PULSE 90–99; O2SAT 96; BMI 38.2
--- NOTE | 2024-02-06 03:29 | W.PN.CT ---
Addendum entered and electronically signed by Kamari Carroll MD 02/06/24 06:49:
I saw and examined the patient.
The PA's note was reviewed and I agree with the note.
Comment:
HAPPY BIRTHDAY to MRS AUGUSTE!!!
Looks great this AM. Much more conversational, no significant complaints.
OOB/IS/ambulate/PT
Original Note:
Today's Communication / Plan
-
Plan:
-No major issues overnight. Hemodynamically stable. Moving extremities appropriately, A&Ox2, not fully oriented to time but knows today is her birthday. Thinks the year is 20[birth year]
-Avoid narcotics/sedatives if possible
-Off all drips
-Remains in a-fib 80-90's, tolerating 25 mg PO BID Lopressor
-Acute postop urinary retention, martino d/c'd 02/02. Now voiding spontaneously. 24hr u/o 1100 mL Flomax has been started yesterday 02/04. Sent off u/a- f/u
-YARA has resolved, creatinine back to baseline, 0.7 today
-Keppra d/c'd 02/03 by Neurology
-Chest tubes and cordis d/c'd yesterday 02/04
-Hypercapnia has resolved now that she's more awake and chest tubes d/c'd, CO2 35 today, does not appear to need BiPAP moving forward, however O2 sats 89-9% on RA with PO2 of 70%, 2L NC applied
-Thrombocytopenia has resolved, 155K today, cont. ASA and Plavix. Will eventually require oral anticoagulation for postop A-fib
-Transaminitis improving following d/c of hepatotoxic meds (Amiodarone/Tylenol/Crestor):AST 53-> 123-> 75-> 47, ALT 24-> 109-> 92-> 78
-Cont. gentle diuresis, replete K
-PT/OT/SP f/u, deconditioned/OOB into chair/Ambulate as tolerated
-Advance diet as tolerated, currently on IDDSI Level 6 (soft and bite size) diet per Speech/swallow
-Encourage use of IS, currently RA
-Maintain temporary pacer wires (will cut before d/c )
-Cont. DVT prophylaxis with SCDs
-Eventual acute rehab placement
Assessment / Plan
-
- s/p Emergency repair of ATAAD w/ #23 Bio-bentall, ligation of LM and RM ostia, CABG x 3 (PRINCESS to LAD, GSV to OM, GSV to PDA); DHCA w/ ACP, Open chest for ongoing coagulopathy 01/29/[address] Carroll - POD #8
-s/p R femoral IABP removal & arterial repair of common femoral artery via cutdown & L femoral IABP insertion 01/29/[address] Alarcon
-s/p chest closure by Dr. Myles on 01/31/24, pod #6
- CAD s/p aborted PCI c/b LM dissection extending retrograde to Type A dissection - now s/p Bentall with hemiarch replacement, cabg x3 on 01/29/24
- IABP removed 01/30/24
- hemorrhagic shock c/b coagulopathy
- AF s/p cryo ablation 2015
- HTN
- HLD
- obesity
- hyperparathyroidism s/p parathyroidectomy
- spinal stenosis
- osteoporosis
- multiple tendon repairs
- Acute postop blood loss anemia/ hemorrhagic shock, s/p multiple transfusions
- Acute postop thrombocytopenia/ coagulopathy
- Acute postop hypervolemia/volume overload -on Bumex drip
- Acute postop metabolic alkalosis - tx with Diamox
- Acute postop suspected seizure- followed by Neurology, started on Keppra, Head CT without acute findings
- Acute postop a-fib with RVR - tx with Amio bolus x2 and drip
- YARA
- Acute postop hypocalcemia - repleted
- Acute postop probable shock liver
- Acute postop hypercapnia
- Acute postop pulmonary insufficiency/hypoxemia
- Acute postop urinary retention
Discussed patient care with: Cardiology, Nursing, Respiratory Therapy, Pharmacy and Care Team
Subjective
Procedure
Emergency repair of ATAAD w/ #23 Bio-bentall, ligation of LM and RM ostia, CABG x 3 (PRINCESS to LAD, GSV to OM, GSV to PDA); DHCA w/ ACP, Open chest for ongoing coagulopathy 01/29/[address] Carroll -
-s/p R femoral IABP removal & arterial repair of common femoral artery via cutdown & L femoral IABP insertion 01/29/[address] Alarcon
-s/p chest closure by Dr. Myles on 01/31/24
-
Date of Service: February 06, 2024
Pt offers no complaints, states 'I think today is my birthday, ' oriented to self and place, but not fully to time, thinks it's 20[birth year]
Objective Data
-
PT 16.3 Sec (11.4-14.6) H 01/31/24 10:29
INR 1.31 01/31/24 10:29
APTT 37.1 Sec (23.4-35.0) H 01/31/24 10:29
Vital Signs
Vital Signs
Temp Pulse Resp BP Pulse Ox
98.7 F 91 18 126/58 91
02/05/24 23:52 02/05/24 23:52 02/05/24 23:52 02/05/24 23:52 02/05/24 23:52
CT Intake/Output/Weight
02/05/24 02/05/24 02/06/24
06:59 18:59 06:59
Intake Total 90 / 406.7 370 / 370
Output Total 110 / 1080 850 / 850
Balance -20 / -673.3 -480 / -480
SaO2: 96 (2L NC, 89-91% on RA)
Physical Exam
-
General: Awake and Oriented (oriented x 2)
Cardiovascular: Irregular rate & rhythm (a-fib), No Murmurs, No Rub and No Gallop
Respiratory: Decreased Breath Sounds
Sternum: Stable
Incision: Clean, Dry, Intact and Dressing Intact
Extremities: No Edema
Data Reviewed
-
Lab Results: Results Reviewed
Medications: Active Meds Reviewed
Chest X-Ray: Report Reviewed and Image Reviewed
ECG: Report Reviewed and Image Reviewed
[2024-02-06 04:18] LABS: Hematocrit 29.2 % (37.0-47.0); Hemoglobin 9.8 g/dL (12.0-16.0); Mean Corp Hgb Conc. 33.6 g/dL (33.0-37.0); Mean Corpuscular Hgb 30.7 pg (27.0-31.0); Mean Corpuscular Volume 91.5 fL (81.0-99.0); Mean Platelet Volume 10.3 fL (7.4-10.4); Platelet Count 155 10^3/uL (130-400); Red Blood Cell Count 3.19 10^6/uL (4.20-5.40); Red Cell Dist. Width 15.5 % (11.5-14.5); White Blood Cell Count 12.4 10^3/uL (4.8-10.8)
[2024-02-06 04:40] LABS: ALT (SGPT) 78 U/L (0-35); AST (SGOT) 47 U/L (14-36); Albumin 3.3 g/dl (3.5-5.0); Alkaline Phosphatase 77 U/L (38-126); Blood Urea Nitrogen 35 mg/dl (7-17); Calcium 8.3 mg/dl (8.4-10.2); Carbon Dioxide 29 mmol/L (22-30); Chloride 103 mmol/L (98-107); Direct Bilirubin 0.3 mg/dl (0.0-0.4); Estimated Creatinine Clearance 81 ml/min; Glucose 129 mg/dl (70-99); Potassium 3.6 mmol/L (3.5-5.1); Sodium 135 mmol/L (135-145); Total Bilirubin 1.9 mg/dl (0.2-1.3); Total Protein 5.5 g/dl (6.3-8.2); eGFR > 60.00
[2024-02-06 04:42] LABS: B.E. 4.8 mmol/L; HCO3 27.9 mmol/L (21-28); Ionized Calcium 1.12 mMOL/L (1.15-1.33); O2 Saturation % 95.5 % (94-98); PCO2 35 mmHg (32-35); PO2 70 mmHg (83-108); pH 7.51 (7.35-7.45)
[2024-02-06 04:43] LABS: O2 Therapy ROOM AIR
[2024-02-06 05:09] LABS: Urine Albumin Trace (Neg - Trace); Urine Bilirubin 1+ (Negative); Urine Character Clear (Clear); Urine Color Yellow; Urine Glucose Negative (Negative); Urine Ketone 1+ (Negative); Urine Leukocyte Trace (Negative); Urine Nitrite Negative (Negative); Urine Occult Blood Trace (Negative); Urine Urobilinogen Negative (Neg - 1+)
--- NOTE | 2024-02-06 05:31 | PTCARENOTE ---
Pt reassessed. Remains a-fib on the monitor. HR 90s. Pt placed on 2 L per CTPA based on ABG results. POX 96%. Pt voided 250mL w/ a post void residual of 15 mL. UA collected and set w/ CTPA at bedside. Pt repositioned in bed. Call rivera within reach.
No c/o pain.
[2024-02-06 05:47] LABS: Urine Bacteria Few (Negative)
[2024-02-06] MEDS: SYNTHROID 50 MCG PO (05:52)
[2024-02-06] MEDS: TYLENOL 1000 MG PO ×2 (05:52→13:48)
[2024-02-06] MEDS: KCL ELIXIR 40 MEQ PO (05:52)
[2024-02-06] MEDS: LOW STRENGTH ASPIRIN 81 MG PO (09:12)
[2024-02-06] MEDS: LOPRESSOR 25 MG PO ×2 (09:12→20:32)
[2024-02-06] MEDS: FLOMAX 0.400000000000000022 MG PO (09:12)
[2024-02-06] MEDS: PLAVIX 75 MG TUBE (09:12)
[2024-02-06] MEDS: SENOKOT-S 1 TABLET PO (09:12)
[2024-02-06] MEDS: LIDOCAINE 4% PATCH 1 PATCH TOPICAL (09:13)
--- NOTE | 2024-02-06 09:15 | PTCARENOTE ---
Assumed care of patient at 0700. Pt is oriented to person and situation. Disoriented to place and year. Pt remains Afib, HR 80's-90's. BP 117/67 MAP 82. V wire insulated. Pulse oximetry 97% on 2L nasal cannula. Pt tolerated PO medication in
applesauce. PureWick in place. Midsternal incision approximated and IMPROVEMENT NURSE. Right groin Aquacel dressing intact. Left groin approximated and MARLEY. Left leg incision well approximated and IMPROVEMENT NURSE. Pt currently resting comfortably in bed with call rivera within
reach.
[2024-02-06] MEDS: NOVOLOG FLEXPEN-MODERATE RESISTANCE SC ×2 (09:16→14:21)
[2024-02-06 09:17] LABS: Glucose - Point of Care 129 mg/dl (70-99)
--- NOTE | 2024-02-06 11:35 | PTCARENOTE ---
2 view x-ray completed. Now OOB in chair. Pt reports upper thighs itchy and red. CT PA aware. Hydrocortisone cream and Benadryl ordered.
--- NOTE | 2024-02-06 12:07 | W.PN.CD ---
Addendum entered and electronically signed by Usama Holland MD 02/06/24 13:23:
Patient seen and examined in collaboration with SPOOL MAKER; agree with below.
-Remains clinically stable from a cardiac standpoint; rate-controlled A-fib.
-Continue with current postoperative management.
Original Note:
Today's Communication / Plan
-
-encourage IS (which I did) and ambulation as tolerated
-follow tele, BP's
-continue current management
Impression / Plan
-
CAD s/p PCI c/b left main dissection extending into retrograde type A dissection
-Emergency repair (#23 bio Samall), ligation of LM/R and ostia, CABG x 3 (PRINCESS to LAD, GSV to OM, GSV to PDA)
-Case complicated by coagulopathy which is improving.
-On ASA/Plavix
-Continue current medications and routine post-operative management as directed by CT Surgery.
Paroxysmal atrial fibrillation:
-remains in afib post-op- rate-controlled- continue metoprolol
-hx cryoablation in 2016
-[id number] score at least 3 (vascular disease, female gender, age 73)
-not currently on OAC with complex surgery and coagulopathy
-Per previous Cardiology note: starting anticoagulation now poses more risk than benefit. Once chest tubes out and CT surgery confident bleeding risk at surgical sites are reasonably low can start OAT
Hypertension -currently stable/controlled.
HLD, goal LDL <55, resume rosuvastatin when able
Hypothyroidism on levothyroxine
Physical Exam
Vital Signs/Labs
Vital Signs
Temp Pulse Resp BP Pulse Ox
98.3 F 88 16 117/67 97
02/06/24 09:19 02/06/24 11:00 02/06/24 09:19 02/06/24 09:10 02/06/24 11:30
02/05/24 02/06/24 02/07/24
06:59 06:59 06:59
Actual Weight 102.9 kg 100.8 kg
02/06/24 04:07
02/06/24 04:07
PT 16.3 Sec (11.4-14.6) H 01/31/24 10:29
INR 1.31 01/31/24 10:29
APTT 37.1 Sec (23.4-35.0) H 01/31/24 10:29
Magnesium 2.0 mg/dl (1.6-2.3) 02/06/24 04:07
Physical Exam
Constitutional: No acute distress
EENT: Anicteric
Cardiovascular: Rhythm/rate is irregular
Respiratory: Respiratory effort normal and Lungs clear to auscul.
Neuro/Psych: Alert
Other: Skin (midsternal incision CDI)
Data Reviewed
-
Date of Service: February 06, 2024
EKG: Other (tele AFIB)
Labs: Labs Reviewed by me
[2024-02-06] MEDS: HYDROCORTISONE 1% CREAM 1 APPLIC TOPICAL (12:19)
[2024-02-06] MEDS: KCL 40 MEQ PO (13:48)
[2024-02-06] MEDS: BUMEX 1 MG IV (13:48)
--- NOTE | 2024-02-06 14:02 | CM ---
Addendum entered by Deanna Garcia 02/06/24 15:20:
Faxed updated referral to [facility]. liaison. [facility] states they may not have an available bed until early next week. Telephone call to [facility], Liaison to check on bed at [facility] [place]. [facility] has to review but they
may have a bed on Sunday if medically stable and family agreeable to [facility].
Original Note:
Reviewed chart. Met with and Mrs. Duron to review discharge plans. Family would like to explore acute rehab. at [facility]. Telephone call to [facility] liaison to check on bed availability. Will send update therapy notes. Awaiting
to hear back from [facility]. Medical work-up in progress. The discharge plan is to go to acute rehab. -[facility]fully [facility] if approved for admission and bed available when medically stable.
--- NOTE | 2024-02-06 17:15 | PTCARENOTE ---
Pt took nap after being in chair for several hours. HR 80's-90's. BP 120/57 MAP 70. Pulse oximetry 96% on 2L nasal cannula. Pt now back in chair for dinner.
[2024-02-06 18:14] LABS: Glucose - Point of Care 155 mg/dl (70-99)
[2024-02-06] MEDS: NOVOLOG FLEXPEN-MODERATE RESISTANCE 1 UNITS SC (18:16)
[2024-02-06] MEDS: HYDROCORTISONE 1% CREAM TOPICAL (20:33)
[2024-02-06] MEDS: SENOKOT-S PO (20:33)
--- NOTE | 2024-02-06 21:00 | PTCARENOTE ---
Assumed care of pt from dayshift RN. Pt sitting in the chair. Pt awake, alert, and oriented to person/place/time. A-fib on the monitor. HR 80s. Temporary epicardial v-wire insulated - cord easily accessible. BP stable. Palpable pulses. +1
generalized edema. Pt on 2 L NC. POX 97%. Lung sounds diminished. CT dressing CDI. Abdomen soft/nontender. +BS. Pure-wick in place. Pt voiding yellow urine. All surgical sites stable. Bruising present on the inside of pt's thighs. PIVx1 CDI. Pt
transferred from chair to bed via gideon lift. Pt repositioned in bed. No c/o pain at this time. Call rivera within reach. See worklist for full nursing assessment, VS, and interventions.
--- NOTE | 2024-02-06 21:10 | RESPNOTE ---
bipap on standby per CT group note
[2024-02-06] MEDS: NSS IV (22:11)
[2024-02-06 22:21] LABS: Glucose - Point of Care 129 mg/dl (70-99)
[2024-02-06] MEDS: TYLENOL PO (22:22)
[2024-02-07] VITALS (16 sets, daily range): BP systolic 101–134; BP diastolic 58–91; PULSE 90–91; O2SAT 95–96; BMI 38.6
--- NOTE | 2024-02-07 00:21 | PTCARENOTE ---
Pt reassessed. A-fib on the monitor. HR 80s. BP stable. Maintained on 2 L NC. POX 97%. No c/o pain at this time. PureWick in place. Call rivera within reach.
[2024-02-07 04:17] LABS: Hematocrit 26.7 % (37.0-47.0); Hemoglobin 9.3 g/dL (12.0-16.0); Mean Corp Hgb Conc. 34.8 g/dL (33.0-37.0); Mean Corpuscular Hgb 31.2 pg (27.0-31.0); Mean Corpuscular Volume 89.6 fL (81.0-99.0); Mean Platelet Volume 9.6 fL (7.4-10.4); Platelet Count 178 10^3/uL (130-400); Red Blood Cell Count 2.98 10^6/uL (4.20-5.40); Red Cell Dist. Width 15.9 % (11.5-14.5); White Blood Cell Count 11.5 10^3/uL (4.8-10.8)
[2024-02-07 04:42] LABS: ALT (SGPT) 57 U/L (0-35); AST (SGOT) 33 U/L (14-36); Albumin 3.3 g/dl (3.5-5.0); Alkaline Phosphatase 80 U/L (38-126); Blood Urea Nitrogen 28 mg/dl (7-17); Calcium 7.9 mg/dl (8.4-10.2); Carbon Dioxide 27 mmol/L (22-30); Chloride 101 mmol/L (98-107); Direct Bilirubin 0.3 mg/dl (0.0-0.4); Estimated Creatinine Clearance 80 ml/min; Glucose 125 mg/dl (70-99); Magnesium 1.9 mg/dl (1.6-2.3); Potassium 3.9 mmol/L (3.5-5.1); Sodium 134 mmol/L (135-145); Total Bilirubin 1.6 mg/dl (0.2-1.3); Total Protein 5.6 g/dl (6.3-8.2); eGFR > 60.00
--- NOTE | 2024-02-07 04:45 | PTCARENOTE ---
Previous assessment unchanged. Pt a-fib on the monitor. HR 80s. BP stable. Pt maintained on 2 L NC. POX 96%. Pt repositioned in bed. Voiding via purewick. Labs drawn and sent. Call rivera within reach.
--- NOTE | 2024-02-07 05:34 | W.PN.CT ---
Addendum entered and electronically signed by Kamari Carroll MD 02/07/24 07:10:
I saw and examined the patient.
The PA's note was reviewed and I agree with the note.
Comment:
POD#9 - doing well
OK for rehab when bed available
Continue ASA/plavix - will plan for outpatient transition to ASA/Eliquis on POD#14
Original Note:
Today's Communication / Plan
-
-pod #9
-no issues overnight, no complains, A&Ox3 this am, pleasant, no drips
-remains in a-fib- on Metoprolol 25 bid
-got 1 mg Bumex on 02/05 (UO only 450cc)- continue
-YARA has resolved, creatinine back to baseline, 0.7 today
-Keppra d/c'd 02/03 by Neurology
-Chest tubes and cordis d/c'd 02/04
-pOx 96% on 2L
-Thrombocytopenia has resolved. Currently, on ASA and Plavix
-Transaminitis improving following d/c of hepatotoxic meds (Amiodarone/Tylenol/Crestor)
-continue PT/OT
-plans for possible d/c to [facility] if bed available
-appreciate everyone's input
Assessment / Plan
-
- s/p Emergency repair of ATAAD w/ #23 Bio-bentall, ligation of LM and RM ostia, CABG x 3 (PRINCESS to LAD, GSV to OM, GSV to PDA); DHCA w/ ACP, Open chest for ongoing coagulopathy 01/29/[address] Carroll - POD #9
-s/p R femoral IABP removal & arterial repair of common femoral artery via cutdown & L femoral IABP insertion 01/29/[address] Alarcon
-s/p chest closure by Dr. Myles on 01/31/24, pod #7
- CAD s/p aborted PCI c/b LM dissection extending retrograde to Type A dissection - now s/p Bentall with hemiarch replacement, cabg x3 on 01/29/24
- IABP removed 01/30/24
- hemorrhagic shock c/b coagulopathy
- AF s/p cryo ablation 2015
- HTN
- HLD
- obesity
- hyperparathyroidism s/p parathyroidectomy
- spinal stenosis
- osteoporosis
- multiple tendon repairs
- Acute postop blood loss anemia/ hemorrhagic shock, s/p multiple transfusions
- Acute postop thrombocytopenia/ coagulopathy
- Acute postop hypervolemia/volume overload -on Bumex drip
- Acute postop metabolic alkalosis - tx with Diamox
- Acute postop suspected seizure- followed by Neurology, started on Keppra, Head CT without acute findings
- Acute postop a-fib with RVR - tx with Amio bolus x2 and drip
- YARA
- Acute postop hypocalcemia - repleted
- Acute postop probable shock liver
- Acute postop hypercapnia
- Acute postop pulmonary insufficiency/hypoxemia
- Acute postop urinary retention
Discussed patient care with: Nursing and Care Team
Subjective
Procedure
Emergency repair of ATAAD w/ #23 Bio-bentall, ligation of LM and RM ostia, CABG x 3 (PRINCESS to LAD, GSV to OM, GSV to PDA); DHCA w/ ACP, Open chest for ongoing coagulopathy 01/29/[address] Carroll -
-s/p R femoral IABP removal & arterial repair of common femoral artery via cutdown & L femoral IABP insertion 01/29/[address] Alarcon
-s/p chest closure by Dr. Myles on 01/31/24
-
Date of Service: February 07, 2024
Objective Data
-
Lab Results
02/07/24 04:04
02/07/24 04:04
PT 16.3 Sec (11.4-14.6) H 01/31/24 10:29
INR 1.31 01/31/24 10:29
APTT 37.1 Sec (23.4-35.0) H 01/31/24 10:29
Vital Signs
Vital Signs
Temp Pulse Resp BP Pulse Ox
98.5 F 97 16 122/58 96
02/07/24 04:08 02/07/24 04:08 02/07/24 04:08 02/07/24 04:08 02/07/24 04:08
CT Intake/Output/Weight
02/06/24 02/06/24 02/07/24
06:59 18:59 06:59
Output Total 250 / 1100 450 / 650 200 / 650
Balance -250 / -730 -450 / -650 -200 / -650
SaO2: 96
Physical Exam
-
General: Awake and AOx3
Cardiovascular: Irregular rate & rhythm, No Murmurs and No Rub
Respiratory: Decreased Breath Sounds
Sternum: Stable
Incision: Clean, Dry and Intact
Extremities: Edema +1
Abdomen: soft, nondistended, nontender, + bowel sounds
Data Reviewed
-
Lab Results: Results Reviewed
Medications: Active Meds Reviewed
Chest X-Ray: Report Reviewed and Image Reviewed
ECG: Report Reviewed and Image Reviewed
[2024-02-07] MEDS: SYNTHROID 50 MCG PO (05:49)
[2024-02-07] MEDS: TYLENOL 1000 MG PO ×3 (05:49→20:42)
--- NOTE | 2024-02-07 08:30 | PTCARENOTE ---
Resumed care of patient. Walking rounds completed with previous RN. Pt assessed while she was lying in bed. Pt alert and oriented x4. Pt denies pain, shortness of breath, and nausea. LOVING with equal strength throughout. Afib on tele with rates in the
80s-90s. BP stable 115/64. +heart tones. Bilateral radial and DP pulses palpable. No edema noted. Epicardial v-wire insulated. POX 97% on 2L, titrated to RA, POX 94%. Lungs diminished in the bases. IS encouraged-1000mL achieved. Occasional dry
nonproductive cough noted. Abdomen soft, round, obese, nontender. +BS. Pt reports diminished appetite. Purwick in place, pt voided lee ann urine, but pt able to know when needs to urinate-purwick removed. Sternal incision approximated. Old chest tube
dressing CDI. Right groin incision with aquacel intact. Left groin puncture sites approximated. Left SVG harvest approximated and ecchymotic. Left forearm 22g PIV intact. See MAR for medication administration. See worklist for complete nursing
assessment. Plan of care reviewed and patient in agreement.
[2024-02-07] MEDS: NOVOLOG FLEXPEN-MODERATE RESISTANCE SC ×2 (08:36→17:35)
[2024-02-07 08:37] LABS: Glucose - Point of Care 133 mg/dl (70-99)
[2024-02-07] MEDS: LOPRESSOR 25 MG PO ×2 (08:37→20:41)
[2024-02-07] MEDS: FLUSH (NSS) 1 FLUSH IV (08:37)
[2024-02-07] MEDS: PLAVIX 75 MG TUBE (08:38)
[2024-02-07] MEDS: HYDROCORTISONE 1% CREAM 1 APPLIC TOPICAL ×2 (08:38→20:41)
[2024-02-07] MEDS: LOW STRENGTH ASPIRIN 81 MG PO (08:38)
[2024-02-07] MEDS: FLOMAX 0.400000000000000022 MG PO (08:38)
[2024-02-07] MEDS: SENOKOT-S 1 TABLET PO ×2 (08:38→20:42)
[2024-02-07] MEDS: LIDOCAINE 4% PATCH 1 PATCH TOPICAL (08:38)
--- NOTE | 2024-02-07 09:00 | PTCARENOTE ---
Pt assisted OOB to chair with 2-3 assist. Pt able to stand up with some assistance, but did well getting to the chair. Pt states it was challenging and it took a lot out of her. Pt resting in the chair.
[2024-02-07] MEDS: NOVOLOG FLEXPEN-MODERATE RESISTANCE 1 UNITS SC (11:41)
[2024-02-07 11:43] LABS: Glucose - Point of Care 167 mg/dl (70-99)
--- NOTE | 2024-02-07 11:45 | PTCARENOTE ---
Pt reassessed. Pt sitting in the chair. Encouraged pt to sit in the chair through lunch time. VSS. POX 96% on RA. Surgical sites stable. No acute changes from previous assessment.
--- NOTE | 2024-02-07 15:52 | W.PN.CD ---
Today's Communication / Plan
-
- Continue supportive CVICU care.
Impression / Plan
-
CAD s/p PCI c/b left main dissection extending into retrograde type A dissection
-Emergency repair (#23 linda Ahn), ligation of LM/R and ostia, CABG x 3 (PRINCESS to LAD, GSV to OM, GSV to PDA) - 01/29/24 and chest closure on 01/31/24
-Case complicated by coagulopathy which is improving.
-On ASA/Plavix
-Continue current medications and routine post-operative management as directed by CT Surgery.
Paroxysmal atrial fibrillation:
-remains in afib post-op- rate-controlled- continue metoprolol
-hx cryoablation in 2015
-[id number] score at least 3 (vascular disease, female gender, age 73)
-not currently on OAC with complex surgery and coagulopathy
-Per previous Cardiology note: starting anticoagulation now poses more risk than benefit. Once chest tubes out and CT surgery confident bleeding risk at surgical sites are reasonably low can start OAT
- switch ASA / Plavix to Eliquis/ ASA at 2 weeks (on - 02/15/24)
Hypertension -currently stable/controlled.
HLD, goal LDL <55, resume rosuvastatin when able
Hypothyroidism on levothyroxine
Physical Exam
Vital Signs/Labs
Vital Signs
Temp Pulse Resp BP Pulse Ox
98.6 F 92 16 112/59 96
02/07/24 11:50 02/07/24 15:00 02/07/24 11:50 02/07/24 12:13 02/07/24 15:00
02/06/24 02/07/24 02/08/24
06:59 06:59 06:59
Actual Weight 100.8 kg 101.9 kg
02/07/24 04:04
02/07/24 04:04
PT 16.3 Sec (11.4-14.6) H 01/31/24 10:29
INR 1.31 01/31/24 10:29
APTT 37.1 Sec (23.4-35.0) H 01/31/24 10:29
Magnesium 1.9 mg/dl (1.6-2.3) 02/07/24 04:04
Physical Exam
Constitutional: No acute distress and Comfortable
EENT: Anicteric and Moist mucous membranes
Cardiovascular: Pedal edema is absent, Rhythm/rate is irregular and Systolic murmur present
Respiratory: Respiratory effort normal and Rhonchi Present
Neuro/Psych: Alert and Oriented
Other: Skin
Data Reviewed
-
Date of Service: February 07, 2024
Medical Decision Making: Reviewed Test Results, Independent Historian Assessment and Test Interpretation
EKG: Tracing Personally Visualized and interpreted
Echo: Report Reviewed by me
Labs: Labs Reviewed by me
Old Records: Reviewed
Critical Care Time (in minutes): 30
--- NOTE | 2024-02-07 15:54 | PTOTSP ---
Dysphagia Therapy
Mastication and oral clearance WFL to advance solids to regular consistency at this time. Patient had throat clearing and dry coughing throughout this re-assessment. However, no aspiration was noted on recent swallow study (at most upper laryngeal
penetration with consecutive cup sips) and coughing/throat clearing likely unrelated to swallowing at this time.
Some language/cognitive changes persist, noted at the conversation level. Patient politely declined completion of a formal cognitive linguistic screening test as she 'just woke up'. Per chart review, [facility] Full cognitive
linguistic evaluation warranted as able/appropriate.
Recommend:
1. Regular, Thin Liquids
2. Medications - as best tolerated (either one at a time with single sips of water or crushed in puree)
2. Strategies: full supervision, assistance as needed, SINGLE sips/bites, slow rate, ensure patient clears mouth before next sip/bite
3. No further dysphagia therapy warranted. Consider cognitive linguistic evaluation as able/appropriate.
--- NOTE | 2024-02-07 15:57 | CM ---
spoke to pt, son and in room, samantha will have a bed for her tomorrow. she is agreeable with this plan. cm to follow up in am
--- NOTE | 2024-02-07 16:00 | PTCARENOTE ---
Pt reassessed. Pt resting in bed. Remains Afib on tele with rates in the 90s. BP stable. POX 96% on RA. surgical sites stable. To be transferred to IVU, room packed up.
[2024-02-07 17:35] LABS: Glucose - Point of Care 136 mg/dl (70-99)
--- NOTE | 2024-02-07 17:36 | PTCARENOTE ---
Received pt from CVICU at 1640. Pt arrived in bed. VSS, Pt w/ epicardial wires intact and insulated. Pacer box at bedside. Will monitor.
[2024-02-07] MEDS: NSS IV (20:42)
[2024-02-08 01:10] VITALS: BP 134/78
[2024-02-08 01:11] LABS: Glucose - Point of Care 133 mg/dl (70-99)
--- NOTE | 2024-02-08 01:36 | PTCARENOTE ---
Rec'd pt. AAOx3 ; VSS; A-fib on the monitor. Pt. complaining of generalized aches and pains at beginning of shift, medicated with Tylenol after which she fell asleep for a couple of hours. Awoke slightly disoriented to time & place at 0100, but
able to be easily reoriented. VSS, blood sugar 133. Sternal wound CERTIFIED SURGICAL ASSISTANT & approximated without drainage, pacer wires and old chest tube site dressing CDI. Pt. reoriented to plan of care, understanding verbalized. Currently sleeping again.
[2024-02-08 04:00] VITALS: BP 123/78
[2024-02-08] MEDS: SYNTHROID 50 MCG PO (04:36)
[2024-02-08] MEDS: TYLENOL 1000 MG PO ×2 (04:37→15:08)
--- NOTE | 2024-02-08 05:07 | W.PN.CT ---
Today's Communication / Plan
-
-pod #10
-Pt was slightly confused with location overnight, got upset that she doesn't remember how she got to the IVU. C/o HENSLEY and SOB this am, says 'Im not ready to go to [place], my Hg may be low'. No focal neuro deficits, A&O x4 - Tylenol for HENSLEY, pt was
reassured, discussed importance of getting PT.
-wt has been trending down, still 10 lbs up from preop. POx 95-97% on RA
-labs pending
-plans for d/c to [place] today
-remains in a-fib -on Metoprolol
-LFTs have been improving (Amio/Tylenol/Crestor on hold)
-plan to continue ASA/Plavix for now and transition outpatient to ASA/Eliquis on pod #[address] Carroll
-continue PT/OT
-diet advanced
-appreciate everyone's input
Assessment / Plan
-
- s/p Emergency repair of ATAAD w/ #23 Bio-bentall, ligation of LM and RM ostia, CABG x 3 (PRINCESS to LAD, GSV to OM, GSV to PDA); DHCA w/ ACP, Open chest for ongoing coagulopathy 01/29/[address] Carroll - POD #10
-s/p R femoral IABP removal & arterial repair of common femoral artery via cutdown & L femoral IABP insertion 01/29/[address] Alarcon
-s/p chest closure by Dr. Myles on 01/31/24, pod #8
- CAD s/p aborted PCI c/b LM dissection extending retrograde to Type A dissection - now s/p Bentall with hemiarch replacement, cabg x3 on 01/29/24
- IABP removed 01/30/24
- hemorrhagic shock c/b coagulopathy
- AF s/p cryo ablation 2015
- HTN
- HLD
- obesity
- hyperparathyroidism s/p parathyroidectomy
- spinal stenosis
- osteoporosis
- multiple tendon repairs
- Acute postop blood loss anemia/ hemorrhagic shock, s/p multiple transfusions
- Acute postop thrombocytopenia/ coagulopathy
- Acute postop hypervolemia/volume overload -on Bumex drip
- Acute postop metabolic alkalosis - tx with Diamox
- Acute postop suspected seizure- followed by Neurology, started on Keppra, Head CT without acute findings
- Acute postop a-fib with RVR - tx with Amio bolus x2 and drip
- YARA
- Acute postop hypocalcemia - repleted
- Acute postop probable shock liver
- Acute postop hypercapnia
- Acute postop pulmonary insufficiency/hypoxemia
- Acute postop urinary retention
Discussed patient care with: Nursing and Care Team
Subjective
Procedure
Emergency repair of ATAAD w/ #23 Bio-bentall, ligation of LM and RM ostia, CABG x 3 (PRINCESS to LAD, GSV to OM, GSV to PDA); DHCA w/ ACP, Open chest for ongoing coagulopathy 01/29/[address] Carroll -
-s/p R femoral IABP removal & arterial repair of common femoral artery via cutdown & L femoral IABP insertion 01/29/[address] Alarcon
-s/p chest closure by Dr. Myles on 01/31/24
-
Date of Service: February 07, 2024
Objective Data
-
Lab Results
02/07/24 04:04
02/07/24 04:04
PT 16.3 Sec (11.4-14.6) H 01/31/24 10:29
INR 1.31 01/31/24 10:29
APTT 37.1 Sec (23.4-35.0) H 01/31/24 10:29
Vital Signs
Vital Signs
Temp Pulse Resp BP Pulse Ox
98.6 F 83 16 118/72 97
02/07/24 22:25 02/07/24 22:24 02/07/24 22:25 02/07/24 22:24 02/07/24 22:25
CT Intake/Output/Weight
02/07/24 02/07/24 02/08/24
06:59 18:59 06:59
Intake Total 720 / 720
Output Total 200 / 650 300 / 300
Balance -200 / -650 420 / 420
SaO2: 97
Physical Exam
-
General: Awake and AOx3
Cardiovascular: Irregular rate & rhythm, No Murmurs and No Rub
Respiratory: Decreased Breath Sounds
Sternum: Stable
Incision: Clean, Dry and Intact
Abdomen: soft, nondistended, nontender, + bowel sounds
Extremities: Edema +1
Data Reviewed
-
Lab Results: Results Reviewed
Medications: Active Meds Reviewed
Chest X-Ray: Report Reviewed and Image Reviewed
ECG: Report Reviewed and Image Reviewed
[2024-02-08 05:44] VITALS: BMI 38.2
[2024-02-08 06:25] LABS: Hematocrit 25.2 % (37.0-47.0); Hemoglobin 8.6 g/dL (12.0-16.0); Mean Corp Hgb Conc. 34.1 g/dL (33.0-37.0); Mean Corpuscular Hgb 30.7 pg (27.0-31.0); Mean Platelet Volume 9.9 fL (7.4-10.4); Platelet Count 190 10^3/uL (130-400); Red Cell Dist. Width 15.3 % (11.5-14.5); White Blood Cell Count 13.5 10^3/uL (4.8-10.8)
[2024-02-08 07:03] LABS: ALT (SGPT) 40 U/L (0-35); AST (SGOT) 30 U/L (14-36); Alkaline Phosphatase 85 U/L (38-126); Blood Urea Nitrogen 22 mg/dl (7-17); Calcium 7.9 mg/dl (8.4-10.2); Carbon Dioxide 26 mmol/L (22-30); Chloride 100 mmol/L (98-107); Direct Bilirubin 0.4 mg/dl (0.0-0.4); Estimated Creatinine Clearance 94 ml/min; Glucose 122 mg/dl (70-99); Potassium 3.7 mmol/L (3.5-5.1); Sodium 129 mmol/L (135-145); Total Bilirubin 1.5 mg/dl (0.2-1.3); Total Protein 5.4 g/dl (6.3-8.2); eGFR > 60.00
[2024-02-08 07:20] VITALS: BP 140/88
[2024-02-08 07:20] LABS: Glucose - Point of Care 151 mg/dl (70-99)
[2024-02-08] MEDS: FLOMAX 0.400000000000000022 MG PO (08:53)
[2024-02-08] MEDS: LASIX 80 MG PO (08:53)
[2024-02-08] MEDS: LOW STRENGTH ASPIRIN 81 MG PO (08:54)
[2024-02-08] MEDS: SENOKOT-S 1 TABLET PO (08:54)
[2024-02-08] MEDS: LOPRESSOR 25 MG PO (08:54)
[2024-02-08] MEDS: PLAVIX 75 MG TUBE (08:54)
[2024-02-08] MEDS: HYDROCORTISONE 1% CREAM 1 APPLIC TOPICAL (08:55)
[2024-02-08] MEDS: NOVOLOG FLEXPEN-MODERATE RESISTANCE 1 UNITS SC (08:55)
[2024-02-08] MEDS: LIDOCAINE 4% PATCH 1 PATCH TOPICAL (08:56)
[2024-02-08] MEDS: FLUSH (NSS) 1 FLUSH IV (08:57)
--- NOTE | 2024-02-08 10:50 | W.DCSUMMARY ---
Discharge Summary
Discharge Data
Date of Admission: 01/29/24
Date of Discharge: 02/08/24
Total time spent discharging patient (in min): 55
-
Pending Results: No
Hospital Course
Primary care physician:
Dr. Glen Rodriguez
Outpatient account executive sales representative:
Dr. Cervantes
Inpatient consultants:
CBC, pattern molder, neurology
Procedures:
1. Emergency repair of ATAAD w/ #23 Bio-bentall, ligation of LM and RM ostia, CABG x 3 (PRINCESS to LAD, GSV to OM, GSV to PDA); DHCA w/ ACP, Open chest for ongoing coagulopathy on 01/28
2. Chest washout and Chest Washout 01/30
Primary Diagnosis:
1. Coronary Artery Disease
Secondary Diagnoses:
1. 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
2. Moderate aortic valve insufficiency
3. Atrial fibrillation
4. Coronary artery disease
5. Hypertension
6. Hyperlipidemia
7. Hypothyroidism
8. Emergent cardiac surgery, requiring intra-aortic balloon pump
9. Status post cutdown of the right common femoral artery and repair with relocation of intra-aortic balloon to left common femoral artery
HPI: 73-year-old female presented initially to [facility] for an elective left heart cath with Dr. Cook. During the PCI there was an acute dissection and patient was emergently taken to the CV OR for repair.
Hospital course:
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 Cook for ongoing chest pain. It was found that the dissection extended from the left main to the
right coronary artery and ascending aortic arch. Therefore, she was taken to the operating room emergently for a bio Bentall with ligation of both coronary ostia and bypasses performed to LAD, circumflex, and RPDA with Dr. Carroll. It was also found
that the patient had an acute dissection of the right femoral artery in which vascular surgery repaired intraoperatively. The balloon pump was removed from the right femoral artery and moved to the left femoral artery. Due to postoperative
bleeding, and requirement for multiple blood product transfusions, she was left packed and chest open in the CVICU. She was aggressively diuresed yesterday (6.5L) and was able to come off of intra-aortic balloon pump as well as inotropic support.
She was subsequently taken back to the OR on 01/[address] Myles for chest washout and sternal closure. She returned to the CVICU on Levophed and dobutamine however she did convert to atrial fibrillation with rapid ventricular rate. She was started
on amiodarone at that time. Patient's Precedex drip was weaned off and patient was extubated by 1839. She was observed to have seizure-like activity so patient was started on Keppra IV and neurology was consulted. On 02/01 postoperative day #4
patient was started on beta-blockers, aspirin, and Plavix. Due to CO2 retention patient was placed on BiPAP. On 02/02 postoperative day #5, patient was reAmio bolused [place], [place] catheter, and arterial line were removed. Speech evaluation was
performed and patient was started on pur�ed and nectar thick fluids. 02/03 postoperative day #6 due to rising LFTs patient's amiodarone and Crestor were discontinued. She was diuresed with 1 mg of IV Bumex. Mental status continues to improve.
Physical therapy and physiatry were consulted. Patient was downgraded to telemetry status and a more aggressive bowel regimen was started. 02/04 postoperative day #7 patient was rediuresed with 1 mg of Bumex. Patient had a large bowel movement.
She was taken for a video barium swallow and passed for thins and bite-size foods. Repeat ABG remained stable off BiPAP. Chest tubes and Cordis were removed without issue. On 02/05 postoperative day #8 Bumex 1 mg was given LFTs continue to trend
down and mental status continue to improve. On 02/06 postoperative day #9 patient was okay for an acute rehab placement. ALTs continue to decrease. And patient was upgraded to a regular diet with thin liquids. On 02/07 patient was given 80 mg of
oral Lasix and was scheduled for daily Lasix. Repeat chest x-ray did not show active cardiopulmonary disease and repeat echo was stable. Therefore, patient was deemed okay for discharge to an acute rehab. Due to the patient's risk of bleeding
oral anticoagulation was not started inpatient for her atrial fibrillation. She can be started on Eliquis on postoperative day #14, which would be 02/11. From that point forward she will only be on aspirin and Eliquis and Plavix will be discontinued.
Home medication changes:
see below.
Discharge Plan
-
Patient Disposition: Acute Rehab Facility
Discharge Diagnosis/Procedures: emergent CABG, AVR, aortic igor-arch replacement
Condition: Fair
Diet: Low Cholesterol and Low Sodium
Activity: No strenuous activity
Driving Restrictions: Not until seen by your Dr
Bathing Restrictions: OK to Shower
Other Services: Cardiac Rehab
Wound Care:
WOUND CARE:
-Shower daily. Use soap & water.
-No lotions, creams or powders on incision area.
Specialty Instructions: Weigh Daily- Call MD for wt gain/loss 3 lbs overnight/5 lbs in 1 week
Activity Restrictions/Additional Instructions:
ACTIVITY:
-No strenuous activity: no heavy lifting, pushing, pulling anything over 15 pounds for one month
-continue to use stairs as tolerated
DRIVING RESTRICTIONS:
-No driving for one month or until approved by your surgeon
WOUND CARE:
-Shower daily. Use soap & water.
-No lotions, creams or powders on incision area.
DIET:
-continue a low fat/low cholesterol diet.
-IF you are diabetic, continue carb controlled diet.
CARDIAC REHAB:
-Please make appointment to start in 5-6 weeks with your local hospital program. (See Cardiac Rehabilitation Discharge Booklet).
SPECIALTY INSTRUCTIONS:
-Weigh yourself daily. Call your physician for any weight gain/loss of 3 lbs overnight or 5 lbs in one week.
-REPORT any clicking noise or uneven appearance of your sternum to your surgeon immediately.
-If you smoke, you are instructed to quit. The [place] smoking hotline phone number is [phone]
Referrals:
Louis Cervantes MD [Non-Admitting Privileges] - 03/12/24 9:10 am
Shan Henry MD [Active] - in four to six weeks (sleep evaluation)
Carlos Alarcon MD [Active] - in four to six weeks
Kamari Carroll MD [Active] - 03/04/24 1:30 pm
Glen Rodriguez MD [Family Provider] - in four to six weeks (Please make an appointment in four to six weeks. )
Additional Discharge Medication Instructions: last dose of plavix will be on 02/10 and start taking eliquis on 02/11
Prescriptions:
New
acetaminophen 325 mg Tablet
650 mg PO Q4HPRN PRN (Reason: mild pain,headache,temp >101F ) Qty: 0 0RF
pantoprazole 40 mg Tablet,Delayed Release (Dr/Ec)
40 mg PO DAILY Qty: 0 0RF
furosemide 40 mg Tablet
40 mg PO DAILY Qty: 0 0RF
metoprolol tartrate 25 mg Tablet
25 mg PO BID Qty: 0 0RF
atorvastatin [Lipitor] 10 mg tablet
10 mg PO DAILY Qty: 10 0RF
Eliquis 5 mg tablet
5 mg PO BID Qty: 1 0RF
Rx Instructions:
START ON 02/12/24
Continued
alendronate [Fosamax] 70 mg Tablet
70 mg PO QWEEK
amlodipine 2.5 mg Tablet
2.5 mg PO BID
aspirin 81 mg Tablet,Delayed Release (Dr/Ec)
81 mg PO DAILY
cholecalciferol (vitamin D3) [Vitamin D3] 25 mcg (1,000 unit) Capsule
25 mcg PO DAILY
magnesium 200 mg Tablet
400 mg PO DAILY
rosuvastatin 10 mg Tablet
10 mg PO DAILY
metoprolol tartrate 25 mg Tablet
25 mg PO BID
Align 4 mg Capsule
4 mg PO DAILY
levothyroxine 50 mcg Capsule
50 mcg PO DAILY
psyllium husk [Metamucil] 0.4 gram Capsule
0.4 g PO HS
Hair, Skin and Nails (biotin) 10,000 mcg Tablet,Chewable
10,000 mcg PO DAILY
clopidogrel [Plavix] 75 mg Tablet
75 mg PO DAILY Qty: 0 0RF
Rx Instructions:
LAST DOSE 02/10
Discontinued
famotidine 40 mg Tablet
40 mg PO DAILY
lisinopril 10 mg Tablet
10 mg PO DAILY
Cbd
50 ml PO HS
Discharge Orders:
Discharge Patient (As Directed); Ordered 02/08/24
Ordered By: Ivy Mack
Care Plan Goals
Care Plan Goals:
Problem: Readiness for enhanced knowledge related to diagnosis and treatment plan
Goal: Understand your diagnosis and treatment plan needs, including medications if applicable.
Instructions: Know your diagnosis, underlying causes and treatment plan options, including medications if applicable. Consult with your health care team to learn about your diagnosis and treatment plan, including medications if applicable.
Discharge Date and Time
Print Language: VIETNAMESE
[2024-02-08 11:42] VITALS: BP 111/70
[2024-02-08 12:23] LABS: Glucose - Point of Care 95 mg/dl (70-99)
[2024-02-08] MEDS: NOVOLOG FLEXPEN-MODERATE RESISTANCE SC (12:57)
--- NOTE | 2024-02-08 13:31 | W.PN.CD ---
Addendum entered and electronically signed by Usama Holland MD 02/08/24 16:45:
Patient seen and examined in collaboration with [employer]; agree with below.
-Patient remains clinically stable after undergoing CT surgery as outlined below.
-Continue current medication regimen.
-Being transferred to rehabilitation today.
Original Note:
Today's Communication / Plan
-
NSVT, on beta abbey
Follow telemetry
Impression / Plan
-
CAD s/p PCI c/b left main dissection extending into retrograde type A dissection
-Emergency repair (#23 bio Anabelle), ligation of LM/R and ostia, CABG x 3 (PRINCESS to LAD, GSV to OM, GSV to PDA) 01/29/24 & chest closure 01/31/24
-Case complicated by coagulopathy which is improving
-On ASA/Plavix
-Continue current medications and routine post-operative management as directed by CT Surgery.
Paroxysmal atrial fibrillation:
-Rate controlled, continue metoprolol
-Hx cryoablation in 2016
-[id number] score at least 3 (vascular disease, female gender, age 73)
-not currently on OAC with complex surgery and coagulopathy
-Switch ASA/Plavix to Eliquis/ASA at 2 weeks (on 02/15/24)
Post operative anemia
Hypertension, currently stable/controlled.
HLD, goal LDL <55, resume rosuvastatin when able
Hypothyroidism on levothyroxine
Physical Exam
Vital Signs/Labs
Vital Signs
Temp Pulse Resp BP Pulse Ox
97.6 F 90 16 140/88 97
02/08/24 11:41 02/08/24 11:41 02/08/24 11:41 02/08/24 07:20 02/08/24 11:41
02/07/24 02/08/24 02/09/24
06:59 06:59 06:59
Actual Weight 101.9 kg 100.8 kg
02/08/24 06:01
02/08/24 06:01
PT 16.3 Sec (11.4-14.6) H 01/31/24 10:29
INR 1.31 01/31/24 10:29
APTT 37.1 Sec (23.4-35.0) H 01/31/24 10:29
Magnesium 2.0 mg/dl (1.6-2.3) 02/08/24 06:01
Physical Exam
Constitutional: No acute distress and Comfortable
EENT: Anicteric and Moist mucous membranes
Cardiovascular: Rhythm/rate is irregular and S1S2 is normal
Respiratory: Respiratory effort normal and Lungs clear to auscul.
GI: Soft, Distention absent, Flat, Non tender and Normal bowel sounds
Neuro/Psych: AO x 3
Other: Skin (warm and dry)
Data Reviewed
-
Date of Service: February 08, 2024
Labs: Labs Reviewed by me
Old Records: Reviewed
--- NOTE | 2024-02-08 15:05 | CM ---
Plan is for pt. to transfer to [facility] today.
No authorization required for transfer.
Plan: MONITOR
--- NOTE | 2024-02-08 15:42 | PTCARENOTE ---
Echo done and CXR as ordered. Patient ok for transfer to [place]. Pacer wires cut by CT surgery PA and sutures removed from previous CT sites. Dry sterile dressings applied and are dry and intact. Patient concerned about edematous area at proximal
sternum. Evaluated by CT PA and felt to be a hematoma that will absorb over time. Patient was able to ambulate to the bathroom and voided qs, moved her bowels. Resting in bed now, plan for transfer to [place] after giving report.
[2024-02-08 15:49] VITALS: BP 110/60
== END 2024-02-08 17:42 | DRG 216 ==
LOC: IVU 11:08
PROVIDERS: Anesthesiology; Clinical Nurse Specialist Acute Care; Internal Medicine Critical Care Medicine; Nurse Practitioner; Physician Assistant; Physician Assistant Medical; Thoracic Surgery (Cardiothoracic Vascular Surgery); ADMITTING PHYSICIAN Internal Medicine Cardiovascular Disease; ATTENDING PHYSICIAN Thoracic Surgery (Cardiothoracic Vascular Surgery); CONSULT PHYSICIAN Internal Medicine Critical Care Medicine; FAMILY PHYSICIAN Family Medicine; OTHER PHYSICIAN Internal Medicine Cardiovascular Disease; OTHER PHYSICIAN Student in an Organized Health Care Education/Training Program
PROC: 5A1945Z Respiratory Ventilation, 24-96 Consecutive Hours (ICD-10-PCS; 2024-01-29)
PROC: 02100Z9 Bypass Coronary Artery, One Artery from Left Internal Mammary, Open Approach (ICD-10-PCS; 2024-01-29)
PROC: 021109W Bypass Coronary Artery, Two Arteries from Aorta with Autologous Venous Tissue, Open Approach (ICD-10-PCS; 2024-01-29)
PROC: 04QK0ZZ Repair Right Femoral Artery, Open Approach (ICD-10-PCS; 2024-01-29)
PROC: 5A1221Z Performance of Cardiac Output, Continuous (ICD-10-PCS; 2024-01-29)
PROC: 0BH17EZ Insertion of Endotracheal Airway into Trachea, Via Natural or Artificial Opening (ICD-10-PCS; 2024-01-29)
PROC: 06BQ4ZZ Excision of Left Saphenous Vein, Percutaneous Endoscopic Approach (ICD-10-PCS; 2024-01-29)
PROC: 04U00JZ Supplement Abdominal Aorta with Synthetic Substitute, Open Approach (ICD-10-PCS; 2024-01-29)
PROC: 02703ZZ Dilation of Coronary Artery, One Artery, Percutaneous Approach (ICD-10-PCS; 2024-01-29)
PROC: 5A02210 Assistance with Cardiac Output using Balloon Pump, Continuous (ICD-10-PCS; 2024-01-29)
PROC: 4A023N7 Measurement of Cardiac Sampling and Pressure, Left Heart, Percutaneous Approach (ICD-10-PCS; 2024-01-29)
PROC: 30233K1 Transfusion of Nonautologous Frozen Plasma into Peripheral Vein, Percutaneous Approach (ICD-10-PCS; 2024-01-29)
PROC: B24BZZ4 Ultrasonography of Heart with Aorta, Transesophageal (ICD-10-PCS; 2024-01-29)
PROC: 30233N1 Transfusion of Nonautologous Red Blood Cells into Peripheral Vein, Percutaneous Approach (ICD-10-PCS; 2024-01-29)
PROC: B2111ZZ Fluoroscopy of Multiple Coronary Arteries using Low Osmolar Contrast (ICD-10-PCS; 2024-01-29)
PROC: 02RF08Z Replacement of Aortic Valve with Zooplastic Tissue, Open Approach (ICD-10-PCS; 2024-01-29)
PROC: 30233R1 Transfusion of Nonautologous Platelets into Peripheral Vein, Percutaneous Approach (ICD-10-PCS; 2024-01-29)
PROC: 5A09357 Assistance with Respiratory Ventilation, Less than 24 Consecutive Hours, Continuous Positive Airway Pressure (ICD-10-PCS; 2024-01-31)
DX: I97.88 Other intraoperative complications of the circulatory system, not elsewhere classified (principal); I25.42 Coronary artery dissection; J95.1 Acute pulmonary insufficiency following thoracic surgery; I71.010 Dissection of ascending aorta; J96.90 Respiratory failure, unspecified, unspecified whether with hypoxia or hypercapnia; R57.8 Other shock; K72.00 Acute and subacute hepatic failure without coma; I25.110 Atherosclerotic heart disease of native coronary artery with unstable angina pectoris; D68.9 Coagulation defect, unspecified; I97.411 Intraoperative hemorrhage and hematoma of a circulatory system organ or structure complicating a cardiac bypass; E87.0 Hyperosmolality and hypernatremia; E87.29 Other acidosis; Q21.12 Patent foramen ovale; D62 Acute posthemorrhagic anemia; E87.3 Alkalosis; N17.9 Acute kidney failure, unspecified; Y83.2 Surgical operation with anastomosis, bypass or graft as the cause of abnormal reaction of the patient, or of later complication, without mention of misadventure at the time of the procedure; Y84.0 Cardiac catheterization as the cause of abnormal reaction of the patient, or of later complication, without mention of misadventure at the time of the procedure; I48.0 Paroxysmal atrial fibrillation; I10 Essential (primary) hypertension; D69.59 Other secondary thrombocytopenia; E83.51 Hypocalcemia; R33.8 Other retention of urine; R56.9 Unspecified convulsions; I65.29 Occlusion and stenosis of unspecified carotid artery; J45.909 Unspecified asthma, uncomplicated; E66.9 Obesity, unspecified; E03.9 Hypothyroidism, unspecified; M48.00 Spinal stenosis, site unspecified; I08.0 Rheumatic disorders of both mitral and aortic valves; E78.00 Pure hypercholesterolemia, unspecified; Z68.38 Body mass index [BMI] 38.0-38.9, adult; Z79.02 Long term (current) use of antithrombotics/antiplatelets; Z79.82 Long term (current) use of aspirin; Z79.899 Other long term (current) drug therapy; Z98.1 Arthrodesis status
CPT/HCPCS: 88305; 88311; 93308; 33967; 36600; 70450; 71045; 71046; 74018; 74230; 80048; 80053; 80076; 80202; 81003; 81015; 82140; 82248; 82330; 82805; 82810; 82962; 83036; 83605; 83735; 84100; 84132; 84134; 84302; 84484; 85014; 85018; 85025; 85027; 85049; 85347; 85384; 85610; 85730; 86803; 86850; 86900; 86901; 86920; 87340; 87389; 92526; 92610; 92611; 92920; 93005; 93312; 93320; 93325; 94002; 94003; 94660; 94762; 95816; 97110; 97163; 97167; 97530; 97535; C1725; C1769; C1894; J2916; J7189; P9012; P9016; P9017; P9045; P9047; P9059; P9073; Q9967

== ENCOUNTER → 2024-03-21 14:00 | Outpatient (REF) | payer MEDICARE, OTHER, SELFPAY | LOC: RAD 14:00 | PROVIDERS: ATTENDING PHYSICIAN Physician Assistant; FAMILY PHYSICIAN Family Medicine | DX: I73.9 Peripheral vascular disease, unspecified (principal) | CPT/HCPCS: 93922; 93925 ==